=== PATIENT | female | born 1945 | race Caucasian/White ===

== ENCOUNTER → 2019-09-08 16:43 | Outpatient (BNVA) | payer MEDICARE, OTHER, SELFPAY | PROVIDERS: Family Provider Nurse Practitioner Family; PCP Nurse Practitioner Family; Visit Provider Nurse Practitioner | DX: E53.8 Deficiency of other specified B group vitamins (principal); R39.15 Urgency of urination; I10 Essential (primary) hypertension; E78.2 Mixed hyperlipidemia; F41.8 Other specified anxiety disorders; R10.30 Lower abdominal pain, unspecified; E55.9 Vitamin D deficiency, unspecified; J44.9 Chronic obstructive pulmonary disease, unspecified | CPT/HCPCS: 81000 ==

== ENCOUNTER → 2019-09-10 09:36 | Outpatient (BNVA) | payer MEDICARE, OTHER, SELFPAY | PROVIDERS: Family Provider Nurse Practitioner Family; PCP Nurse Practitioner Family; Visit Provider Nurse Practitioner | DX: R05 Cough (principal); J44.9 Chronic obstructive pulmonary disease, unspecified; R10.30 Lower abdominal pain, unspecified; I10 Essential (primary) hypertension; E53.8 Deficiency of other specified B group vitamins; E55.9 Vitamin D deficiency, unspecified; F41.8 Other specified anxiety disorders; E78.2 Mixed hyperlipidemia | CPT/HCPCS: 71046; 74018; 80053; 80061; 82306; 82607; 84443; 85025 ==

== ENCOUNTER → 2019-12-23 10:01 | Outpatient (BNVA) | payer MEDICARE, OTHER, SELFPAY | PROVIDERS: Family Provider Nurse Practitioner Family; PCP Nurse Practitioner Family; Visit Provider Nurse Practitioner | DX: E55.9 Vitamin D deficiency, unspecified (principal); E53.8 Deficiency of other specified B group vitamins; N64.4 Mastodynia; J44.9 Chronic obstructive pulmonary disease, unspecified; I10 Essential (primary) hypertension; F41.8 Other specified anxiety disorders; J30.89 Other allergic rhinitis; Z95.5 Presence of coronary angioplasty implant and graft; E78.2 Mixed hyperlipidemia; N63.10 Unspecified lump in the right breast, unspecified quadrant | CPT/HCPCS: 80048; 81003; 82306; 82607 ==

== ENCOUNTER → 2020-01-08 11:11 | Outpatient (BNVA) | payer MEDICARE, OTHER, SELFPAY | PROVIDERS: Family Provider Nurse Practitioner Family; PCP Nurse Practitioner Family; Visit Provider Nurse Practitioner | DX: N39.0 Urinary tract infection, site not specified (principal); E87.1 Hypo-osmolality and hyponatremia | CPT/HCPCS: 80048; 81000 ==

== ENCOUNTER 2020-01-12 10:10 | Outpatient (CLI) | payer MEDICARE, OTHER, SELFPAY ==
--- NOTE | 2020-01-12 10:30 | MM_ITS ---
WS: [id number] BILATERAL DIGITAL DIAGNOSTIC MAMMOGRAM MAMMOGRAPHY WITH CAD CLINICAL INFORMATION: Right breast lump at 9:00 HISTORY: Bilateral breast soreness COMPARISON: None. TECHNIQUE: Bilateral CC, MLO, and ML views. FINDINGS: Scattered fibroglandular densities bilaterally. Palpable marker upper outer right breast. No underlyi ng mammographic abnormalities. Ultrasound is pending. Punctate calcifications inferior quadrant right breast new from the prior examinations. Recommend spo t magnification views for further anatomic detail. ULTRASOUND BREAST RIGHT TECHNIQUE: Ultrasound right breast focused area of concern. CLINICAL INFORMATION: Right breast lump at 9:00 COMPARISON: None. FINDINGS: Ultrasound right breast at the 8 to 10:00 position. Normal underlying breast parenchyma. No suspiciou s abnormalities. No lesions to target for biopsy. MM/[place] [id number] IMPRESSION: BI-RADS: 0-Incomplete: Need additional imaging evaluation FOLLOW UP: Need Additional Imaging RECOMMEND SPOT MAGNIFICATION VIEWS OF THE CALCIFICATIONS INFERIOR QUADRANT RIGH T BREAST NEAR THE 6 CLOCK POSITION.
--- NOTE | 2020-01-12 11:00 | US_ITS ---
WS: [id number] BILATERAL DIGITAL DIAGNOSTIC MAMMOGRAM MAMMOGRAPHY WITH CAD CLINICAL INFORMATION: Right breast lump at 9:00 HISTORY: Bilateral breast soreness COMPARISON: None. TECHNIQUE: Bilateral CC, MLO, and ML views. FINDINGS: Scattered fibroglandular densities bilaterally. Palpable marker upper outer right breast. No underlyi ng mammographic abnormalities. Ultrasound is pending. Punctate calcifications inferior quadrant right breast new from the prior examinations. Recommend spo t magnification views for further anatomic detail. ULTRASOUND BREAST RIGHT TECHNIQUE: Ultrasound right breast focused area of concern. CLINICAL INFORMATION: Right breast lump at 9:00 COMPARISON: None. FINDINGS: Ultrasound right breast at the 8 to 10:00 position. Normal underlying breast parenchyma. No suspiciou s abnormalities. No lesions to target for biopsy. US/US breast RT limited* [id number] IMPRESSION: BI-RADS: 0-Incomplete: Need additional imaging evaluation FOLLOW UP: Need Additional Imaging RECOMMEND SPOT MAGNIFICATION VIEWS OF THE CALCIFICATIONS INFERIOR QUADRANT RIGH T BREAST NEAR THE 6 CLOCK POSITION.
== END 2020-01-12 10:11 | disposition home or self-care (01) ==
LOC: RADSHAW 10:20
PROVIDERS: PCP Nurse Practitioner; Visit Provider Nurse Practitioner
DX: N63.15 Unspecified lump in the right breast, overlapping quadrants (principal); R92.1 Mammographic calcification found on diagnostic imaging of breast
CPT/HCPCS: 76642; 77066

== ENCOUNTER 2020-01-22 08:43 | Outpatient (CLI) | payer MEDICARE, OTHER, SELFPAY ==
--- NOTE | 2020-01-22 09:00 | MM_ITS ---
WS: [id number] RIGHT DIGITAL MAMMOGRAPHY WITH CAD CLINICAL INFORMATION: abnormal mammo COMPARISON: 01/12/2020 and 08/16/2018 TECHNIQUE: 3 views of the right breast were obtained with spot magnification. FINDINGS: Scattered fibroglandular densities of the right breast. Again seen is a cluster of calcifications inf erior quadrant right breast. These are punctate with a nonspecific and indeterminant appearance. Anibal mmend stereotactic guided biopsy for further evaluation as these are new since the prior examinations . MM/[place] [id number] IMPRESSION: BI-RADS: 4A-Suspicious: Low FOLLOW UP: Stereotactic Biopsy Recommended
== END 2020-01-22 08:44 | disposition home or self-care (01) ==
LOC: RADSHAW 08:48
PROVIDERS: PCP Nurse Practitioner; Visit Provider Nurse Practitioner
DX: R92.8 Other abnormal and inconclusive findings on diagnostic imaging of breast (principal); R92.1 Mammographic calcification found on diagnostic imaging of breast
CPT/HCPCS: 77065

== ENCOUNTER 2020-02-03 11:59 | Outpatient (CLI) | payer MEDICARE, OTHER, SELFPAY ==
--- NOTE | 2020-02-03 12:05 | MM_ITS ---
WS: [id number] STEREOTACTIC RIGHT BREAST BIOPSY WITH VACUUM ASSISTANCE. History: Heterogeneous right breast calcifications. Biopsy recommended for suspicious calcifications. Procedure, risks, and complications were discussed the patient who agreed to proceed. Prior imaging w as reviewed. Cluster of calcifications within the right breast are localized. Stereotactic imaging was performed. Patient was prepped and draped in usual sterile fashion. After 1% lidocaine, calcifications were targ eted stereotactically in the right breast. Small incision was made. Needle advanced into the cluster of calcifications right breast with imaging demonstrating appropriate position relative to the calcif ications. Multiple vacuum-assisted core biopsies were obtained. POSTPROCEDURE IMAGING DEMONSTRATES CA LCIFICATIONS WITHIN THE BIOPSY SPECIMEN. The biopsy cavity was lavaged. Titanium clip was placed at the biopsy site. Postprocedure imaging dem onstrates clip in good position. No immediate complications. MM/MM biopsy RT vac assist [id number] IMPRESSION: 1. Uncomplicated vacuum-assisted stereotactic biopsy of calcifications in the RIGHT breast. PATHOLOGY: BENIGN BREAST TISSUE WITH NO EVIDENCE OF MALIGNANCY. Recommend 6 month right diagnostic mammographic follow-up postbiopsy
--- NOTE | 2020-02-03 12:08 | MM_ITS ---
WS: [id number] STEREOTACTIC RIGHT BREAST BIOPSY WITH VACUUM ASSISTANCE. History: Heterogeneous right breast calcifications. Biopsy recommended for suspicious calcifications. Procedure, risks, and complications were discussed the patient who agreed to proceed. Prior imaging w as reviewed. Cluster of calcifications within the right breast are localized. Stereotactic imaging was performed. Patient was prepped and draped in usual sterile fashion. After 1% lidocaine, calcifications were targ eted stereotactically in the right breast. Small incision was made. Needle advanced into the cluster of calcifications right breast with imaging demonstrating appropriate position relative to the calcif ications. Multiple vacuum-assisted core biopsies were obtained. POSTPROCEDURE IMAGING DEMONSTRATES CA LCIFICATIONS WITHIN THE BIOPSY SPECIMEN. The biopsy cavity was lavaged. Titanium clip was placed at the biopsy site. Postprocedure imaging dem onstrates clip in good position. No immediate complications. MM/MM surgical specimen RT IMPRESSION: 1. Uncomplicated vacuum-assisted stereotactic biopsy of calcifications in the RIGHT breast. PATHOLOGY: BENIGN BREAST TISSUE WITH NO EVIDENCE OF MALIGNANCY. Recommend 6 month right diagnostic mammographic follow-up postbiopsy
--- NOTE | 2020-02-03 12:08 | MM_ITS ---
WS: [id number] STEREOTACTIC RIGHT BREAST BIOPSY WITH VACUUM ASSISTANCE. History: Heterogeneous right breast calcifications. Biopsy recommended for suspicious calcifications. Procedure, risks, and complications were discussed the patient who agreed to proceed. Prior imaging w as reviewed. Cluster of calcifications within the right breast are localized. Stereotactic imaging was performed. Patient was prepped and draped in usual sterile fashion. After 1% lidocaine, calcifications were targ eted stereotactically in the right breast. Small incision was made. Needle advanced into the cluster of calcifications right breast with imaging demonstrating appropriate position relative to the calcif ications. Multiple vacuum-assisted core biopsies were obtained. POSTPROCEDURE IMAGING DEMONSTRATES CA LCIFICATIONS WITHIN THE BIOPSY SPECIMEN. The biopsy cavity was lavaged. Titanium clip was placed at the biopsy site. Postprocedure imaging dem onstrates clip in good position. No immediate complications. MM/[place] [id number] IMPRESSION: 1. Uncomplicated vacuum-assisted stereotactic biopsy of calcifications in the RIGHT breast. PATHOLOGY: BENIGN BREAST TISSUE WITH NO EVIDENCE OF MALIGNANCY. Recommend 6 month right diagnostic mammographic follow-up postbiopsy
== END 2020-02-03 12:00 | disposition home or self-care (01) ==
LOC: RADSHAW 12:03
PROVIDERS: PCP Nurse Practitioner; Visit Provider Nurse Practitioner
DX: R92.1 Mammographic calcification found on diagnostic imaging of breast (principal)
CPT/HCPCS: 19081; 77065; 85610; 88305

== ENCOUNTER → 2020-03-24 10:00 | Outpatient (BNVA) | payer MEDICARE, OTHER, SELFPAY | PROVIDERS: PCP Nurse Practitioner; Visit Provider Nurse Practitioner | DX: I12.9 Hypertensive chronic kidney disease with stage 1 through stage 4 chronic kidney disease, or unspecified chronic kidney disease (principal); N18.3 Chronic kidney disease, stage 3 (moderate); E55.9 Vitamin D deficiency, unspecified; J44.9 Chronic obstructive pulmonary disease, unspecified; F41.8 Other specified anxiety disorders; E78.2 Mixed hyperlipidemia; E53.8 Deficiency of other specified B group vitamins; J30.89 Other allergic rhinitis; Z95.5 Presence of coronary angioplasty implant and graft | CPT/HCPCS: 80053; 81000; 82306; 84443 ==

== ENCOUNTER → 2020-04-07 11:03 | Outpatient (BNVA) | payer MEDICARE, OTHER, SELFPAY | PROVIDERS: PCP Nurse Practitioner; Visit Provider Nurse Practitioner | DX: N39.0 Urinary tract infection, site not specified (principal) | CPT/HCPCS: 81000 ==

== ENCOUNTER → 2020-04-22 13:16 | Outpatient (BNVA) | payer MEDICARE, OTHER, SELFPAY | PROVIDERS: PCP Nurse Practitioner; Visit Provider Nurse Practitioner | DX: N18.9 Chronic kidney disease, unspecified (principal); I10 Essential (primary) hypertension | CPT/HCPCS: 81000 ==

== ENCOUNTER → 2020-05-06 14:17 | Outpatient (BNVA) | payer MEDICARE, OTHER, SELFPAY | PROVIDERS: PCP Nurse Practitioner; Visit Provider Nurse Practitioner | DX: I10 Essential (primary) hypertension (principal) | CPT/HCPCS: 80048 ==

== ENCOUNTER → 2020-08-27 11:37 | Outpatient (BNVA) | payer MEDICARE, OTHER, SELFPAY | PROVIDERS: PCP Nurse Practitioner; Visit Provider Nurse Practitioner Family | DX: M17.11 Unilateral primary osteoarthritis, right knee (principal); M25.561 Pain in right knee; M25.461 Effusion, right knee | CPT/HCPCS: 73562 ==

== ENCOUNTER → 2020-09-08 09:58 | Outpatient (BNVA) | payer MEDICARE, OTHER, SELFPAY | PROVIDERS: PCP Nurse Practitioner; Visit Provider Nurse Practitioner | DX: E55.9 Vitamin D deficiency, unspecified (principal); I10 Essential (primary) hypertension; E78.2 Mixed hyperlipidemia; E53.8 Deficiency of other specified B group vitamins | CPT/HCPCS: 80053; 80061; 82306; 84443; 85025 ==

== ENCOUNTER → 2020-12-06 10:18 | Outpatient (BNVA) | payer MEDICARE, OTHER, SELFPAY | PROVIDERS: PCP Nurse Practitioner; Visit Provider Nurse Practitioner | DX: I10 Essential (primary) hypertension (principal); J44.9 Chronic obstructive pulmonary disease, unspecified; F41.8 Other specified anxiety disorders; J30.89 Other allergic rhinitis; I25.10 Atherosclerotic heart disease of native coronary artery without angina pectoris; M17.10 Unilateral primary osteoarthritis, unspecified knee; E78.2 Mixed hyperlipidemia; R11.0 Nausea; N18.9 Chronic kidney disease, unspecified; L57.8 Other skin changes due to chronic exposure to nonionizing radiation; Z79.899 Other long term (current) drug therapy | CPT/HCPCS: 74018; 80053; 81003; 87077; 87086; 87184 ==

== ENCOUNTER → 2021-03-07 10:08 | Outpatient (BNVA) | payer MEDICARE, OTHER, SELFPAY | PROVIDERS: PCP Nurse Practitioner; Visit Provider Nurse Practitioner | DX: I10 Essential (primary) hypertension (principal); R82.90 Unspecified abnormal findings in urine; F41.8 Other specified anxiety disorders; J30.89 Other allergic rhinitis; I25.10 Atherosclerotic heart disease of native coronary artery without angina pectoris; M17.10 Unilateral primary osteoarthritis, unspecified knee; E78.2 Mixed hyperlipidemia; J44.9 Chronic obstructive pulmonary disease, unspecified | CPT/HCPCS: 71046; 80053; 81000; 85025; 87077; 87086; 87184 ==

== ENCOUNTER 2021-04-06 16:50 | Emergency (ER) | payer MEDICARE, OTHER, SELFPAY ==
--- NOTE | 2021-04-06 16:59 | XRR_ITS ---
PROCEDURE INFORMATION: Exam: XR Chest Exam date and time: 04/06/2021 4:59 PM Age: 76 years old Clinical indication: Sternal or substernal pain; Prior surgery; Surgery type: Left lumpectomy; Additional info: Chest pain TECHNIQUE: Imaging protocol: XR of the chest. Views: 1 view. COMPARISON: CR XR chest 2V* [id number] 03/07/2021 10:07 AM FINDINGS: Lungs: Unremarkable. No consolidation. Pleural spaces: Unremarkable. No pleural effusion. No pneumothorax. Heart/Mediastinum: Unremarkable. No cardiomegaly. Bones/joints: Unremarkable. XR/XR chest 1V portable [id number] IMPRESSION: Negative for infiltrate Radiation Dose CTDIVOL = (mGy): DLP = (mGy-cm)
[2021-04-06 17:08] VITALS: BP 153/62; PULSE 96; RESP 20; TEMP 36.7; O2SAT 99; BMI 24.0
--- NOTE | 2021-04-06 18:07 | ECG_ITS ---
[facility] Test Date: 2021-04-06 Pat Name: Zoila Rosario Department: Room: Gender: Female Physiotherapy Aide: : 1945 Requested By: Dieter Brewster Order Number: [id number] Wesley MD: Galilea Garcia M.D. Measurements Intervals [place] Rate: 77 P: 71 ND: 168 QRS: -27 QRSD: 88 T: 69 QT: 398 QTc: 450 Interpretive Statements SINUS RHYTHM POSSIBLE LEFT ATRIAL ENLARGEMENT [-0.1mV P-WAVE IN V1/V2] SEPTAL MYOCARDIAL INFARCTION , OF INDETERMINATE AGE [40+ ms Q WAVE IN V1/V2] Compared to ECG 07/23/2018 18:11:07 Sinus tachycardia no longer present Left-axis deviation no longer present Myocardial infarct finding still present Electronically Signed On 04-08-2021 5:47:51 CDT by Galilea Garcia M.D. [id number]
--- NOTE | 2021-04-06 18:08 | ED_ITS ---
HPI - Chest Pain General: Chief Complaint: Chest Pain Stated Complaint: chest pains Time Seen by Provider: 04/06/21 18:01 History of Present Illness: HPI narrative: This patient is a 76-year-old female who presents to the emergency department with complaint of hypertension and atypical type right chest pain. Patient states the pain is resolved. Patient does have a history of hypertension and states her blood pressure normally runs around 130 systolic. Blood pressure on arrival was 155/98. Will do medical evaluation treat as needed MD complaint: chest discomfort Onset (ago): hour(s) Timing of current episode: episodic Associated symptoms: Deny abdominal pain, dyspnea, fever(s), nausea, palpitations or vomiting Review of Systems General: Reports: 10 or more systems reviewed and unremarkable except in HPI and below Const: Denies: fever(s), chills, body aches or fatigue Eyes: Denies: change in vision or blurry vision ENMT: Denies: throat pain, hoarseness or mouth pain Card: Reports: chest pain; Denies: palpitations, irregular heart rhythm, edema, swelling of feet/ankles or lightheadedness Resp: Denies: dyspnea, productive cough, non-productive cough, wheezing or pain on inspiration GI: Denies: abdominal pain, nausea or vomiting : Denies: flank pain, difficulty voiding, dysuria, urinary frequency, urinary urgency or urinary hesitancy Musc: Denies: neck pain, back pain, extremity pain, extremity swelling, joint pain, joint swelling, joint redness, joint warmth or limited range of motion Skin/Breast: Denies: rash, pruritus, erythema or skin tenderness Neuro: Denies: headache(s), numbness in extremities or weakness in extremities Psych: Denies: anxiety or depression PFSH ED PFSH: Medical History Anxiety with depression 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 Chronic migraine CKD (chronic kidney disease) COPD (chronic obstructive pulmonary disease) Environmental and seasonal allergies Essential hypertension Fibromyalgia Mixed hyperlipidemia Osteoarthritis, generalized Personal history of smoking Vitamin B 12 deficiency Vitamin D deficiency Surgical History History of heart artery stent History of nephrectomy, left 2010 at [facility] Family History Other Cancer Heart disease Denies family history of Diabetes Social History Second hand smoke exposure: Yes Smoking risk assessment/counseling performed?: Yes Alcohol intake: never Desire information about alcohol rehabilitation?: No Counseling given: No Desire information about substance/drug rehabilitation?: No Counseling given: No Adopted: No Caregiver/support person: No Lives independently: Yes Household members: spouse Housing: House Marital status: Number of children: 3 service: No Current occupational status: retired and disabled Current occupational exposures/hazards: No Pets and animals: Yes History of recent travel: No Current gender identity: Female Physical Exam Const: COMMON NORMALS: no acute distress, average body habitus, patient oriented x3, no limitations, healthy appearing, alert and well nourished HENMT: COMMON NORMALS: normocephalic, atraumatic, hearing grossly normal bilaterally, external ears normal, EAC's normal, TM's normal bilaterally, Normal external nose present, Normal nasal mucous membranes and turbinates present, moist oral mucous membranes, oropharynx normal, dentition normal and gingiva normal HEAD & SCALP: normocephalic and atraumatic NOSE: Normal external nose present and Normal nasal mucous membranes and turbinates present EXTERNAL EAR: Yes external ears normal EXTERNAL AUDITORY CANAL: EAC's normal TYMPANIC MEMBRANE: TM's normal bilaterally Neck/C-Spine: COMMON NORMALS: full ROM, no lymphadenopathy, supple, no meningeal signs, no JVD, Thyroid normal and No carotid bruits THYROID: Thyroid normal Chest: COMMONS NORMALS: normal inspection of the chest, normal palpation of entire chest wall, normal inspection of the breasts and normal palpation of the breasts Breast/axilla inspection: Yes normal inspection of the breasts BREAST/AXILLA PALPATION: Yes normal palpation of the breasts Resp: COMMON NORMALS: normal respiratory effort, No retractions, No use of accessory muscles, clear to auscultation bilaterally and percussion normal AUSCULTATION: clear to auscultation bilaterally PERCUSSION: percussion normal Cardio: COMMON NORMALS: no JVD, regular rate, regular rhythm, S1 normal heart sound present, S2 normal heart sound present, No gallops present (Cardio), No clicks present (Cardio), No murmurs present (Cardio), No rub (Cardio) and Peripheral pulses 2+ throughout RATE: regular rate RHYTHM: regular rhythm HEART SOUNDS: S1 normal heart sound present and S2 normal heart sound present PERIPHERAL PULSES: Peripheral pulses 2+ throughout GI: COMMON NORMALS: Normal to inspection, nondistended, normoactive bowel sounds present, Soft to palpation, non-tender, No hepatosplenomegaly present, no masses and no bruits PALPATION: Yes Soft to palpation and Yes No hepatosplenomegaly present Back/Pelvis: COMMON NORMALS: thoracic and lumbar spine normal to inspection, no thoracic nor lumbar tenderness, thoraco-lumbar ROM normal and straight leg raise negative bilaterally Extremity: COMMON NORMALS: normal to inspection, full ROM, capillary refill normal, no joint enlargement, no clubbing, cyanosis or edema, no calf tenderness and no pedal edema Neuro: COMMON NORMALS: patient oriented x3 SENSORIUM/ORIENTATION: Yes alert MENINGEAL SIGNS: Yes no meningeal signs Course Reevaluation(s): Reevaluation #1: This patient is a 76-year-old female who presents to the emergency department with complaint of hypertension and atypical type right chest pain. Patient states the pain is resolved. Patient does have a history of hypertension and states her blood pressure normally runs around 130 systolic. Blood pressure on arrival was 155/98. Will do medical evaluation treat as needed I was discussing with patient and family initially they had agreed to be admitted to the hospital due to the patient's atypical chest pain and hyponatremia. As I was talking with the hospitalist Dr. Urbina for admission for the acute hyponatremia. Patient and family requested come back to the room. They are refusing admission to the hospital and request to be discharged home. I did discuss at length with him about options. And advised he would be best have this monitored in the hospital but they have declined. They state they will follow up with primary care physician. Patient and family will be discharged home per the request. Time: 20:41 Consultations: Consultation #1: Dr urbina Time: 20:42 Vital Signs: Vital signs: Vital Signs Temperature 98.1 F 04/06/21 20:05 Pulse Rate 72 04/06/21 20:27 Respiratory Rate 18 04/06/21 20:05 Blood Pressure 163/70 04/06/21 20:27 Pulse Oximetry 100 04/06/21 20:05 MDM - Chest Pain MDM Narrative: Medical decision making narrative: This patient is a 76-year-old female who presents to the emergency department with complaint of hypertension and atypical type right chest pain. Patient states the pain is resolved. Patient does have a history of hypertension and states her blood pressure normally runs around 130 systolic. Blood pressure on arrival was 155/98. Will do medical evaluation treat as needed I was discussing with patient and family initially they had agreed to be admitted to the hospital due to the patient's atypical chest pain and hyponatremia. As I was talking with the hospitalist Dr. Urbina for admission for the acute hyponatremia. Patient and family requested come back to the room. They are refusing admission to the hospital and request to be discharged home. I did discuss at length with him about options. And advised he would be best have this monitored in the hospital but they have declined. They state they will follow up with primary care physician. Patient and family will be discharged home per the request. Lab Data: Labs: Lab Results 04/06/21 04/06/21 04/06/21 17:48 18:00 18:00 WBC 10.0 10^3/uL 10^3 /uL (4.0-10.0) RBC 4.33 10^6/uL 10^6 /uL (4.1-5.3) Hgb 13.1 g/dL g/dL (11.5-15.3) Hct 37.2 % % (37.0-47.0) MCV 85.9 fl fl (81-99) MCH 30.3 pg pg (28.0-34.0) MCHC 35.2 g/dL g/dL (30.0-36.0) RDW 13.8 % % (12.1-15.1) Plt Count 315 10^3/cmm 10^3 /cmm (130-400) MPV 8.9 fL fL (7.4-10.4) Neut % (Auto) 62.8 % % Lymph % (Auto) 27.1 % % Cochran % (Auto) 6.7 % % Eos % (Auto) 2.6 % % Baso % (Auto) 0.4 % % Neut # (Auto) 6.31 10^3/uL 10^3 /uL (1.8-7.7) Lymph # (Auto) 2.7 10^3/uL 10^3/ uL (0.8-4.8) Cochran # (Auto) 0.7 10^3/uL 10^3/ uL (0.2-0.9) Eos # (Auto) 0.3 10^3/uL 10^3/ uL (0.0-0.8) Baso # (Auto) 0.0 10^3/uL 10^3/ uL (0.0-0.1) Nucleated RBC % (a uto) 0 % % Nucleated RBCs # 0.0 /100WBC /100W BC PT INR APTT Sodium 121 mmol/L L mmol /L (136-145) Potassium 4.8 mmol/L mmol/L (3.5-5.1) Chloride 87 mmol/L L mmol/ L (98-107) Carbon Dioxide 22 mmol/L mmol/L (22-29) Anion Gap 16.8 (5-19) BUN 11 mg/dL mg/dL (8-23) Creatinine 0.9 mg/dL mg/dL (0.5-0.9) GFR Calculation Not Reportable Glucose 82 mg/dL mg/dL (65-115) Calculated Osmolal ity 250 mOsm/kg L mOs m/kg (285-295) Calcium 9.7 mg/dL mg/dL (8.5-10.5) Total Bilirubin 0.2 mg/dL mg/dL (0.15-1.2) AST 19 U/L U/L (0-32) ALT 11 U/L U/L (0-33) Alkaline Phosphata se 108 IU/L H IU/L (35-105) Troponin T Baselin e NT-Pro-B Natriuret Pep 393 pg/mL pg/mL (0-450) Total Protein 6.6 g/dL g/dL (6.6-8.7) Albumin 4.5 g/dL g/dL (3.5-5.2) Globulin 2.1 g/dL g/dL (1.3-4.6) Urine Color Yellow (Yellow) Urine Appearance Clear (CLEAR) Urine pH 7 (5-7) Ur Specific Gravit y 1.010 (1.005-1.030) Urine Protein Neg (Negative) Urine Glucose (UA) Norm (Normal) Urine Ketones Negative (Negative) Urine Blood Neg (Negative) Urine Nitrate Negative (Negative) Urine Bilirubin Neg (Negative) Urine Urobilinogen Norm mg/dL mg/dL (Negative) Ur Leukocyte Jessica ase Negative (Negative) 04/06/21 04/06/21 18:00 18:00 WBC RBC Hgb Hct MCV MCH MCHC RDW Plt Count MPV Neut % (Auto) Lymph % (Auto) Cochran % (Auto) Eos % (Auto) Baso % (Auto) Neut # (Auto) Lymph # (Auto) Cochran # (Auto) Eos # (Auto) Baso # (Auto) Nucleated RBC % (a uto) Nucleated RBCs # PT 13.40 SECONDS SEC ONDS (12.1-14.9) INR 0.99 (0.8-1.2) APTT 33.5 SECONDS SECO NDS (23.9-36.7) Sodium Potassium Chloride Carbon Dioxide Anion Gap BUN Creatinine GFR Calculation Glucose Calculated Osmolal ity Calcium Total Bilirubin AST ALT Alkaline Phosphata se Troponin T Baselin e 13 ng/L H ng/L (0-10) NT-Pro-B Natriuret Pep Total Protein Albumin Globulin Urine Color Urine Appearance Urine pH Ur Specific Gravit y Urine Protein Urine Glucose (UA) Urine Ketones Urine Blood Urine Nitrate Urine Bilirubin Urine Urobilinogen Ur Leukocyte Jessica ase Imaging Data^: CXR: Attestation: I personally reviewed and interpreted this imaging study as follows: Radiologist's impression: IMPRESSION: Negative for infiltrate EKG Data^: EKG 1: Attestation: I personally reviewed and interpreted this EKG as follows: EKG interpretation date: 04/06/21 EKG interpretation time: 18:19 Prior EKG tracings: available for review Interpretation: Sinus rhythm heart rate 77 nonspecific EKG changes EKG 2: Attestation: I personally reviewed and interpreted this EKG as follows: EKG interpretation date: 04/06/21 EKG interpretation time: 19:11 Prior EKG tracings: available for review Interpretation: Patient is EKG is sinus rhythm with a heart rate 74 nonspecific EKG changes Discharge Plan Discharge Patient Disposition: Home Clinical Impression: Acute hyponatremia, Hypertension Condition: Stable Prescriptions: No Action cholecalciferol (vitamin D3) 25 mcg (1,000 unit) capsule 50 mcg PO DAILY RF: 0 Hold Instructions: Patient No Longer Taking aspirin [Adult Aspirin Regimen] 81 mg tablet,delayed release (DR/EC) 81 mg PO DAILY RF: 0 mupirocin 2 % ointment 1 applic TOPICAL TID PRN (Reason: skin irritation) Qty: 30 RF: 2 nitroglycerin [Nitrostat] 0.4 mg tablet, sublingual 0.4 mg SUBLINGUAL Q5M PRN (Reason: chest pain) Qty: 25 RF: 2 losartan 100 mg tablet 100 mg PO DAILY Qty: 90 RF: 3 ondansetron HCl [Zofran] 4 mg tablet 4 mg PO BID PRN (Reason: nausea) Qty: 20 RF: 2 triamcinolone acetonide 0.1 % cream 1 applic topical BID PRN (Reason: itching) Qty: 80 RF: 0 cetirizine [Zyrtec] 10 mg tablet 10 mg PO DAILY Qty: 30 RF: 2 chlorthalidone 25 mg tablet 25 mg PO DAILY Qty: 30 RF: 2 Hold Instructions: Doctor's Order clopidogrel 75 mg tablet 75 mg PO DAILY Qty: 30 RF: 2 meloxicam [Mobic] 7.5 mg tablet 7.5 mg PO .with even meal Qty: 30 RF: 2 metoprolol tartrate 25 mg tablet 12.5 mg PO BID Qty: 30 RF: 2 simvastatin 20 mg tablet 20 mg PO DAILY Qty: 30 RF: 2 venlafaxine [Effexor XR] 150 mg capsule,extended release 24hr 150 mg PO .HS Qty: 30 RF: 2 Trelegy Ellipta 100-62.5-25 mcg blister with device 1 inh inhalation Q24H Qty: 60 RF: 2 hydroxyzine pamoate 50 mg capsule 50 mg PO BID Qty: 60 RF: 2 benzonatate 200 mg capsule 200 mg PO TID PRN (Reason: cough) Qty: 90 RF: 0 nystatin 100,000 unit/mL suspension 5 ml PO TID 10 Days Qty: 150 RF: 0 promethazine-DM 6.25-15 mg/5 mL syrup 5 ml PO Q6H PRN (Reason: drainage ) Qty: 118 RF: 0 selenium sulfide 2.25 % shampoo 5 ml topical DAILY PRN (Reason: scalp ) Qty: 180 RF: 0 sulfamethoxazole-trimethoprim [Bactrim DS] 800-160 mg tablet 1 tab PO Q12H Qty: 20 RF: 0 Discharge Orders: Discharge ED (Routine); Ordered 04/06/21 Ordered By: Dieter Brewster Referrals: Kevyn Jean, [employer] [Primary Care Provider] - Discharge Diet: Advance as tolerated Discharge Activity: Resume usual activity Patient Instructions: Opioid Safety Activity Restrictions/Additional Instructions: Continue all home medications. Understand you are being discharged home per your request. Follow-up with your primary care physician in 2 to 3 days for repeat laboratory values check for hyponatremia. Return to the emergency department as needed. Coding Level of Care Code ED Director [employer] for [employer] Fwd Exam Comprehensive
[2021-04-06 18:24] LABS: Basophils % 0.4 %; Eosinophils # 0.3 10^3/uL (0.0-0.8); Eosinophils % 2.6 %; Hematocrit 37.2 % (37.0-47.0); Hemoglobin 13.1 g/dL (11.5-15.3); Lymphocytes # 2.7 10^3/uL (0.8-4.8); Lymphocytes % 27.1 %; Mean Corpuscular HGB Conc 35.2 g/dL (30.0-36.0); Mean Corpuscular Hemoglobin 30.3 pg (28.0-34.0); Mean Corpuscular Volume 85.9 fl (81-99); Mean Platelet Volume 8.9 fL (7.4-10.4); Monocytes # 0.7 10^3/uL (0.2-0.9); Monocytes % 6.7 %; Neutrophils # 6.31 10^3/uL (1.8-7.7); Neutrophils % 62.8 %; Nucleated Red Blood Cells % 0 %; Platelet Count 315 10^3/cmm (130-400); Red Blood Count 4.33 10^6/uL (4.1-5.3); Red Cell Distribution Width 13.8 % (12.1-15.1)
[2021-04-06] MEDS: ondansetron 2 mg/ML SDV 2 mL 4 MG IVP (18:28)
[2021-04-06 18:32] VITALS: BP 151/104; PULSE 73; RESP 18; O2SAT 97
[2021-04-06 18:37] LABS: INR 0.99 (0.8-1.2)
[2021-04-06 18:38] LABS: Partial Thromboplastin Time 33.5 SECONDS (23.9-36.7)
[2021-04-06 18:45] LABS: Add Urine Microscopic? NO; Charge for UA Resulting for Rev
[2021-04-06 18:51] LABS: Bilirubin Urine Neg (Negative); Blood Urine Neg (Negative); Glucose Urine UA Norm (Normal); Ketones Urine Negative (Negative); Leukocyte Esterase Urine Negative (Negative); Nitrate Urine Negative (Negative); Protein Urine Neg (Negative); Urine Appearance Clear (CLEAR); Urine Color Yellow (Yellow); Urobilinogen Urine Norm (Negative); pH Urine 7 (5-7)
[2021-04-06 18:56] LABS: Troponin(5th) Baseline 13 ng/L (0-10)
--- NOTE | 2021-04-06 18:59 | ECG_ITS ---
[facility] Test Date: 2021-04-06 Pat Name: Zoila Rosario Department: Room: Gender: Female Group Account Director: : 1945 Requested By: Jennifer Espino Order Number: [id number] Wesley MD: Yeimi Alvarado M.D. Measurements Intervals [place] Rate: 74 P: -12 OK: 166 QRS: 90 QRSD: 94 T: -5 QT: 408 QTc: 454 Interpretive Statements SINUS RHYTHM POSSIBLE LEFT ATRIAL ENLARGEMENT [-0.1mV P-WAVE IN V1/V2] SEPTAL MYOCARDIAL INFARCTION , OF INDETERMINATE AGE [40+ ms Q WAVE IN V1/V2] Compared to ECG 07/23/2018 18:11:07 Sinus tachycardia no longer present Left-axis deviation no longer present Myocardial infarct finding still present Electronically Signed On 04-06-2021 20:15:57 CDT by Yeimi Alvarado M.D. [id number]
[2021-04-06 19:06] LABS: Alanine Aminotransferase 11 U/L (0-33); Albumin Level 4.5 g/dL (3.5-5.2); Alkaline Phosphatase 108 IU/L (35-105); Anion Gap 16.8 (5-19); Aspartate Amino Transferase 19 U/L (0-32); Blood Urea Nitrogen 11 mg/dL (8-23); Calcium 9.7 mg/dL (8.5-10.5); Carbon Dioxide 22 mmol/L (22-29); Chloride 87 mmol/L (98-107); Globulin 2.1 g/dL (1.3-4.6); Glucose 82 mg/dL (65-115); NT Pro B Type Natriuretic Pept 393 pg/mL (0-450); Osmolality Calculated 250 mOsm/kg (285-295); Potassium 4.8 mmol/L (3.5-5.1); Sodium 121 mmol/L (136-145); Total Bilirubin 0.2 mg/dL (0.15-1.2); Total Protein 6.6 g/dL (6.6-8.7)
[2021-04-06 19:16] VITALS: BP 158/60; PULSE 74; RESP 18; O2SAT 98
[2021-04-06 20:05] VITALS: BP 164/88; PULSE 80; RESP 18; TEMP 36.7; O2SAT 100
[2021-04-06] MEDS: metoprolol tartrate 1 mg/1 mL SDV 5 mL 5 MG IV (20:16)
[2021-04-06 20:27] VITALS: BP 163/70; PULSE 72
[2021-04-06 20:30] LABS: Troponin 5 2HR 12.65 ng/L (0-10)
[2021-04-06 20:44] LABS: Troponin 5 2HR Delta -0.35 ABS# (0-10)
[2021-04-06 20:47] VITALS: BP 160/69; PULSE 68; RESP 18; TEMP 36.7; O2SAT 96
== END 2021-04-06 21:01 | disposition home or self-care (01) ==
PROVIDERS: Physician Assistant; Emergency Provider Emergency Medicine; PCP Nurse Practitioner
DX: E87.1 Hypo-osmolality and hyponatremia (principal); I10 Essential (primary) hypertension; Z79.82 Long term (current) use of aspirin; Z79.02 Long term (current) use of antithrombotics/antiplatelets; J44.9 Chronic obstructive pulmonary disease, unspecified; E78.2 Mixed hyperlipidemia; Z77.22 Contact with and (suspected) exposure to environmental tobacco smoke (acute) (chronic)
CPT/HCPCS: 36415; 71045; 80053; 81003; 83880; 84484; 85025; 85610; 85730; 93005; 96374; 96375; 99284; J2405; J3490

== ENCOUNTER → 2021-04-08 13:40 | Outpatient (BNVA) | payer MEDICARE, OTHER, SELFPAY | PROVIDERS: PCP Nurse Practitioner; Visit Provider Registered Nurse Neonatal Intensive Care | DX: E87.1 Hypo-osmolality and hyponatremia (principal) | CPT/HCPCS: 80053 ==

== ENCOUNTER → 2021-04-11 11:51 | Outpatient (BNVA) | payer MEDICARE, OTHER, SELFPAY | PROVIDERS: PCP Nurse Practitioner; Visit Provider Nurse Practitioner | DX: E87.1 Hypo-osmolality and hyponatremia (principal) | CPT/HCPCS: 80048 ==

== ENCOUNTER → 2021-04-25 10:59 | Outpatient (BNVA) | payer MEDICARE, OTHER, SELFPAY | PROVIDERS: PCP Nurse Practitioner; Visit Provider Nurse Practitioner | DX: E87.1 Hypo-osmolality and hyponatremia (principal); E55.9 Vitamin D deficiency, unspecified | CPT/HCPCS: 80053; 82306 ==

== ENCOUNTER → 2021-06-10 09:14 | Outpatient (BNVA) | payer MEDICARE, OTHER, SELFPAY | PROVIDERS: PCP Nurse Practitioner; Visit Provider Nurse Practitioner | DX: I10 Essential (primary) hypertension (principal) | CPT/HCPCS: 80048; 81000 ==

== ENCOUNTER 2021-08-02 09:19 | Inpatient (IN) | payer MEDICARE, OTHER, SELFPAY ==
[2021-08-02 09:22] VITALS: BP 102/67; PULSE 80; RESP 16; TEMP 36.7; O2SAT 92; BMI 21.4
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
--- NOTE | 2021-08-02 09:37 | XR_ITS ---
WS: [id number] PORTABLE CHEST HISTORY: dyspnea/cough COMPARISON: 04/06/2021 New opacification in the LEFT lower lung field. Infiltrate obscures the LEFT heart border. Probably l ingular pneumonia. The RIGHT lung is clear. No pleural effusion or pneumothorax. Cardiac size: Normal. Mediastinum/Aorta: Normal mediastinum. Mild thoracolumbar scoliosis. XR/XR chest 1V portable [id number] IMPRESSION: Acute lingular pneumonia.
--- NOTE | 2021-08-02 09:37 | ECG_ITS ---
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 Measurements Intervals [place] Rate: 76 P: 71 [place]: 156 QRS: -32 QRSD: 83 T: 79 QT: 428 QTc: 483 Interpretive Statements SINUS RHYTHM POSSIBLE LEFT ATRIAL ENLARGEMENT [-0.1mV P-WAVE IN V1/V2] LEFT AXIS DEVIATION [QRS AXIS < -30] ANTEROSEPTAL MYOCARDIAL INFARCTION , OF INDETERMINATE AGE [40+ ms Q WAVE IN V1-V4] Compared to ECG 04/06/2021 19:11:40 Left-axis deviation now present Myocardial infarct finding still present Electronically Signed On 08-02-2021 17:10:17 RESIDENTIAL SALES REP by Avery Lozano M.D. [id number]
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
[2021-08-02 09:42] LABS: Basophils # 0.1 10^3/uL (0.0-0.1); Basophils % 0.3 %; Eosinophils # 0.1 10^3/uL (0.0-0.8); Eosinophils % 0.3 %; Hematocrit 32.1 % (37.0-47.0); Hemoglobin 10.3 g/dL (11.5-15.3); Lymphocytes # 1.3 10^3/uL (0.8-4.8); Lymphocytes % 8.7 %; Mean Corpuscular HGB Conc 32.1 g/dL (30.0-36.0); Mean Corpuscular Hemoglobin 27.8 pg (28.0-34.0); Mean Corpuscular Volume 86.5 fl (81-99); Mean Platelet Volume 9.2 fL (7.4-10.4); Monocytes # 0.7 10^3/uL (0.2-0.9); Monocytes % 4.8 %; Neutrophils # 12.17 10^3/uL (1.8-7.7); Neutrophils % 84.6 %; Nucleated Red Blood Cells % 0 %; Platelet Count 520 10^3/cmm (130-400); Red Blood Count 3.71 10^6/uL (4.1-5.3); Red Cell Distribution Width 14.3 % (12.1-15.1); White Blood Count 14.4 10^3/uL (4.0-10.0)
--- NOTE | 2021-08-02 09:44 | PC.NURSE ---
Admits to being Bi-polar.
[2021-08-02 10:09] LABS: Alanine Aminotransferase 10 U/L (0-33); Albumin Level 3.5 g/dL (3.5-5.2); Alkaline Phosphatase 66 IU/L (35-105); Anion Gap 14.3 (5-19); Aspartate Amino Transferase 15 U/L (0-32); Blood Urea Nitrogen 10 mg/dL (8-23); Carbon Dioxide 27 mmol/L (22-29); Chloride 98 mmol/L (98-107); Creatine Phosphokinase 249 U/L (26-192); Globulin 2.6 g/dL (1.3-4.6); Glucose 120 mg/dL (65-115); Osmolality Calculated 282 mOsm/kg (285-295); Potassium 3.3 mmol/L (3.5-5.1); Salicylate 0.6 mg/dL (3-10); Sodium 136 mmol/L (136-145); Total Bilirubin 0.2 mg/dL (0.15-1.2); Total Protein 6.1 g/dL (6.6-8.7)
[2021-08-02 10:11] LABS: Acetaminophen < 5.0 ug/mL (10-30); Alcohol Level < 10 mg/dL (0-10)
[2021-08-02 10:46] LABS: Add Urine Microscopic? YES; Bacteria Urine 1+ /hpf; Bilirubin Urine Neg (Negative); Blood Urine Neg (Negative); Glucose Urine UA Norm (Normal); Ketones Urine Negative (Negative); Leukocyte Esterase Urine 1+ (Negative); Nitrate Urine Negative (Negative); Protein Urine Neg (Negative); Squamous Epithelial Cell Urine 25-40 /hpf (0-5); Urine Appearance Cloudy (CLEAR); Urine Color Yellow (Yellow); Urobilinogen Urine Norm (Negative); WBC Urine 25-40 /hpf (0-5); pH Urine 6.5 (5-7)
[2021-08-02 10:57] LABS: Amphetamines Screen Urine Negative (Negative); Barbiturates Screen Urine Negative (Negative); Benzodiazepines Screen Urine Negative (Negative); Cocaine Screen Urine Negative (Negative); Opiate Screen Urine Negative (Negative); PCP Screen Urine Negative (Negative); THC Screen Urine Negative (Negative)
--- NOTE | 2021-08-02 12:55 | PC.PHAR ---
pt unable to verify medications-medications entered are meds that show has been filled recently on ext med history and what was on previous entered med list
--- NOTE | 2021-08-02 13:11 | PM.HP ---
Providers/Chief Complaint Admitting Physician: Yulia Miner MD Primary Care Provider: Kevyn Jean, SKEINER-C Chief Complaint: WEAKNESS History of Present Illness Zoila Rosario is a 76 year old female who presented to the hospital via EMS today due to weakness and general malaise. She lives with her of 38 years. History is obtained from her. Since early April she dates that she has had to care for her more than in the past. He fell and broke his upper arm and underwent surgery in May. Since then she states that he spends most of his time in the bed or the chair and has not been helping out with anything around the house orthe property. She has become worn out and not able to attend to everything. She describes being significantly weaker than usual and having more difficulty breathing over the past week or so. She has a barn cat named Isabell, a tomcat named Maulik and a Guinea named Oskar whom she usually cares for but the last few days she has not been able to do that. She is very worried about her animals. Some of this has been hindered by the weather but even with the snow and ice melting she has still struggled. She feels feverish often, particularly at night. She has had increasing cough that was initially productive of clear sputum that later turned to yellow and green. Rare specks of blood. She has had increased sputum production lately. She gets short of breath walking shorter distances with wheezing noted. She has had dry mouth, matted eyes, runny nose. Denies sore throat but describes having some patches of mucus in her throat. She feels more tired than usual and indicates that she gets very sleepy after taking her medications. From what I can gather, her wanted her to do something for him today and she just had had it. She called for an ambulance to come and get her because of the symptoms that she has been experiencing so she can not only get help for herself but also with the intent of not having to take care of him today because she simply could not do it. She has known COPD and continues to smoke 1-1-1/2 packs a day. She has had COVID vaccination with [employer]. No known contacts with Covid. She is not normally on oxygen. Additional history was obtained by ER staff from patient's stepdaughter as described in nursing notes: 08/02/21 09:37 - Nurse Note by Johnathan Gomes RN Acct Num: [id number]? : 1945? Patient Age: 76 Spoke with Lyla Fernandez, pt's step daughter.? She states that patient has a hx of manic depression/bipolar disorder and they feel she has had worsening dementia as of late.? Lyla states patient has threatened to kill herself and threatened to kill her on multiple occasions.? Lyla states pt's son is on the way to the ER to fill out an affidavit detailing the SI/HI comments.? Lyla states pt lives in her room and will not let anyone access this room but Lyla stated there are literally buckets full of medications in the room and pt will lock herself in the room.? In June police had to be called for a wellness check; pt had locked herself in room and was in there for so long that family was worried about her.? Lyla states patient drinks alcohol everyday, sometimes excessively.? She states patient yesterday accused her of starving her to despite patient having eaten recently but denied having eaten anything.? Pt's , per Lyla, had surgery on a fractured left arm 12 weeks ago and is still recovering from this.? Lyla denies any neglect or abuse by any family member, especially the .? Lyla Fernandez can be reached at [phone]. Initialized on 08/02/21 09:37 - END OF NOTE In talking with Mrs. Washburn, she. On her own without any focused questioning that she has a history of bipolar disorder. She indicates that her 's children have been telling people lies about her alluding that she is crazy. I asked her specifically about wanting to harm herself or others. She stated that she want my gone but denied any homicidal or suicidal thoughts. She said what others heard was just a matter of speech because she has been so frustrated and feeling worse. She did not expand on events in June beyond indicating that sometimes she just wanted to get away from her because he needed too much. She states that she has 2 biological children, one a son who lives in [place] and the other a daughter who lives elsewhere in [place]. She has another son whom she indicates recently after being seen here and requiring transfer to [facility]. She indicated that was difficult for her to talk about. She denies drinking daily alcohol instead stating that she will have a couple of beers and whiskey periodically. She does smoke but denies any drug use. Primary care provider reports patient has a history of some anxiety, that has been worse of late and history of depression. Patient was last seen in May. Does not carry a diagnosis of dementia nor definitive diagnosis of bipolar disorder. Work-up in the emergency room was remarkable for leukocytosis, lingular infiltrate, low potassium and drop in hemoglobin from prior values along with borderline blood pressures in somebody prescribed multiple medications. She was diagnosed with pneumonia and received a dose of Levaquin. COVID PCR was negative. Admitted for further evaluation and treatment including evaluation for potential need for geriatric psychiatry after management of acute medical issues. Review of Systems Const: Reports: fever(s) (Subjective), chills (Sometimes), body aches, fatigue, malaise, change in sleep pattern and other (Reports getting very hot at night but denies night sweats); Denies: change in appetite or change in weight Eyes: Reports: eye discharge and dry eyes; Denies: change in vision ENMT: Reports: dry mouth, nasal congestion and post nasal drip; Denies: throat pain, oral sores, bleeding gums or epistaxis Card: Reports: palpitations, lightheadedness, dyspnea on exertion and acrocyanosis; Denies: chest pain, edema, syncope or orthopnea Resp: Reports: dyspnea, productive cough, non-productive cough, wheezing, change in phlegm color, hemoptysis (Rare specks of blood) and chest congestion; Denies: stridor or pain on inspiration GI: Denies: abdominal pain, nausea, vomiting, diarrhea, constipation, hematochezia or melena : Denies: flank pain, difficulty voiding, dysuria, urinary frequency or hematuria Musc: Reports: extremity pain (Arms and legs bother her when she is doing activity, improved with rest), joint stiffness and muscle weakness; Denies: joint swelling, joint redness, joint warmth or muscle cramps Skin/Breast: Reports: pruritus (Lower extremities primarily), sores (Lower back that she scratches a lot) and dry skin; Denies: rash Neuro: Reports: weakness in extremities (Generalized), difficulty walking (Secondary to difficulty breathing and general weakness) and behavioral changes (Admits being upset with but denies behavioral changes otherwise); Denies: headache(s), numbness in extremities, frequent falls, Slurred speech present, difficulty communicating thoughts or involuntary movements Psych: Reports: anxiety, depression, sleeping more, irritability and difficulty concentrating; Denies: panic attacks, memory loss, visual hallucinations, auditory hallucinations, tactile hallucinations, suicidal ideation or homicidal ideation Endo: Reports: tired all the time, hot flashes and heat intolerance; Denies: polyuria, polydipsia or cold intolerance [place]/Lymph: Denies: easy bruising or easy bleeding All/Imm: Reports: itchy eyes and seasonal rhinorrhea Medications/Allergies Home Medications Medication Instructions Recorded Confirmed Last Taken Type aspirin 81 mg tablet,delayed 81 mg PO DAILY 09/08/19 08/02/21 Unknown History release (Adult Aspirin Regimen) mupirocin 2 % topical ointment 1 applic TOPICAL TID PRN #30 gm 03/24/20 08/02/21 Unknown Rx nitroglycerin 0.4 mg sublingual 0.4 mg SUBLINGUAL Q5M PRN #25 tab 08/31/20 08/02/21 Unknown Rx tablet (Nitrostat) furosemide 20 mg tablet (Lasix) 20 mg PO QAM PRN #30 tab 04/25/21 08/02/21 Unknown Rx triamcinolone acetonide 0.1 % 1 applic TOPICAL BID PRN #80 g 04/25/21 08/02/21 Unknown Rx topical cream benzonatate 200 mg capsule 200 mg PO TID PRN #90 cap 06/04/21 08/02/21 Unknown Rx albuterol sulfate 2.5 mg (3 mL) INHALATION Q4H PRN 06/10/21 08/02/21 Unknown Rx #75 ml cetirizine 10 mg tablet (Zyrtec) 10 mg PO DAILY 08/02/21 08/02/21 Unknown History clopidogrel 75 mg tablet 75 mg PO DAILY 08/02/21 08/02/21 Unknown History diltiazem HCl 60 mg 60 mg PO Q12H 08/02/21 08/02/21 Unknown History capsule,extended release 12 hr fenofibrate nanocrystallized 145 145 mg PO DAILY 08/02/21 08/02/21 Unknown History mg tablet (Tricor) fluticasone fur. 100 mcg-umeclid 1 inh INHALATION Q24H 08/02/21 08/02/21 Unknown History 62.5 mcg-vilant 25 mcg inhalat.powder (Trelegy Ellipta) hydroxyzine pamoate 50 mg capsule 50 mg PO BID 08/02/21 08/02/21 Unknown History losartan 100 mg tablet 100 mg PO DAILY 08/02/21 08/02/21 Unknown History metoprolol tartrate 25 mg tablet 12.5 mg PO BID 08/02/21 08/02/21 Unknown History ondansetron HCl 4 mg tablet 4 - 8 mg PO BID PRN 08/02/21 08/02/21 Unknown History (Zofran) venlafaxine 150 mg 150 mg PO BEDTIME 08/02/21 08/02/21 Unknown History capsule,extended release 24 hr (Effexor XR) Allergies Allergy/AdvReac Type Severity Reaction Status Date / Time cephalexin [From Keflex] Allergy Unknown Verified 08/02/21 09:21 PFSH Acute PFSH: Medical History (Updated 08/02/21 @ 20:54 by Yulia Miner MD) Anxiety with depression Arteriosclerotic heart disease (ASHD) Bipolar disorder Cervical disc disorder with myelopathy of mid-cervical region Chronic migraine CKD (chronic kidney disease) COPD (chronic obstructive pulmonary disease) Environmental and seasonal allergies Essential hypertension Fibromyalgia Hard of hearing History of borderline personality disorder Mixed hyperlipidemia Osteoarthritis, generalized Personal history of smoking Single functional kidney Vitamin B 12 deficiency Vitamin D deficiency Surgical History (Updated 08/02/21 @ 20:55 by Yulia Miner MD) History of cataract surgery History of heart artery stent LAD, 2010 left circumflex 2019 History of hysterectomy with bilateral oophorectomy History of nephrectomy, left 2009 at [facility] Hx of right breast biopsy needle Biopsy synergistic Family History (Updated 08/02/21 @ 20:49 by Yulia Miner MD) Mother Cancer Father Alcoholism Other Heart disease Psychiatric illness Denies family history of Diabetes Social History (Updated 08/02/21 @ 16:09 by Yulia Miner MD) Smoking and tobacco status: current every day smoker cigarettes Second hand smoke exposure: Yes Alcohol intake: current Alcohol intake frequency: few times a week Alcohol type: beer and hard liquor Substance/Drug Use: never Adopted: No Caregiver/support person: No Lives independently: Yes Household members: spouse Housing: House Marital status: Number of children: 3 service: No Current occupational status: retired and disabled Current occupational exposures/hazards: No Pets and animals: Yes Pets & animals: cat(s) and other Pets & animal details: guinea Current gender identity: Female Additional social history: patient has 3 biological children - one son has , another son lives in [place], a daughter lives elsewhere in [place] has children of his own Vitals/I&O/Wt Last Vital Signs Temp 98.1 F 08/02/21 09:22 Pulse 80 08/02/21 09:22 Resp 16 08/02/21 09:22 BP 102/67 08/02/21 09:22 Pulse Ox 92 08/02/21 09:22 Weight last 48 hrs Weight 56.699 kg Physical Exam Narrative: Constitutional: Asleep, easily arousable, initially hesitant to talk with me until she learned that I was the doctor that would be admitting her, cooperative thereafter HEENT: Mild bitemporal wasting, extraocular movements are intact, conjunctive are mildly injected, nasopharynx is dry, oropharynx with dry membranes Neck: Supple Respiratory: Pursed lip breathing noted, mild tachypnea, scattered wheezes right and left, rhonchi left lower lobe, intermittent nonproductive cough, chest expansion equal bilaterally Cardiovascular: Regular rhythm, no murmurs gallops or rubs, cyanosis of the feet noted, pulses are faint in all extremities but capillary refill is intact Abdomen: Soft, nontender, positive bowel sounds Extremities: No pitting edema, no calf tenderness, muscles are tender to palpation, no acute synovitis noted to large joints or hands Skin: Dry, no rashes Neuro: Face is symmetric, speech is clear, handgrip equal, strength equal at both feet, no abnormal movements Psych: Cooperative, intermittently with slightly pressured speech, able to tell history as she knows it with connected thoughts that make sense with what she is saying, evidence that there is some animosity between her and her as well as her and her 's children but denies carmen intention to harm her or his children physically, denied thoughts of self-harm, instead expressing a desire to get away from her although was worried about her animals Data : 08/02/21 09:30 08/02/21 09:30 Other Labs: Radiology Impressions Chest X-Ray 08/02/21 09:37 IMPRESSION: Acute lingular pneumonia. Laboratory Results WBC 14.4 10^3/uL (4.0-10.0) H 08/02/21 09:30 RBC 3.71 10^6/uL (4.1-5.3) L 08/02/21 09:30 Hgb 10.3 g/dL (11.5-15.3) L 08/02/21 09:30 Hct 32.1 % (37.0-47.0) L 08/02/21 09:30 MCV 86.5 fl (81-99) 08/02/21 09:30 MCH 27.8 pg (28.0-34.0) L 08/02/21 09:30 MCHC 32.1 g/dL (30.0-36.0) 08/02/21 09:30 RDW 14.3 % (12.1-15.1) 08/02/21 09:30 Plt Count 520 10^3/cmm (130-400) H 08/02/21 09:30 MPV 9.2 fL (7.4-10.4) 08/02/21 09:30 Neut % (Auto) 84.6 % 08/02/21 09:30 Lymph % (Auto) 8.7 % 08/02/21 09:30 [place] % (Auto) 4.8 % 08/02/21 09:30 Eos % (Auto) 0.3 % 08/02/21 09:30 Baso % (Auto) 0.3 % 08/02/21 09:30 Neut # (Auto) 12.17 10^3/uL (1.8-7.7) H 08/02/21 09:30 Lymph # (Auto) 1.3 10^3/uL (0.8-4.8) 08/02/21 09:30 [place] # (Auto) 0.7 10^3/uL (0.2-0.9) 08/02/21 09:30 Eos # (Auto) 0.1 10^3/uL (0.0-0.8) 08/02/21 09:30 Baso # (Auto) 0.1 10^3/uL (0.0-0.1) 08/02/21 09:30 Nucleated RBC % (auto) 0 % 08/02/21 09:30 Nucleated RBCs # 0.0 /100WBC 08/02/21 09:30 Sodium 136 mmol/L (136-145) 08/02/21 09:30 Potassium 3.3 mmol/L (3.5-5.1) L 08/02/21 09:30 Chloride 98 mmol/L (98-107) 08/02/21 09:30 Carbon Dioxide 27 mmol/L (22-29) 08/02/21 09:30 Anion Gap 14.3 (5-19) 08/02/21 09:30 BUN 10 mg/dL (8-23) 08/02/21 09:30 Creatinine 0.9 mg/dL (0.5-0.9) 08/02/21 09:30 GFR Calculation Not Reportable 08/02/21 09:30 Glucose 120 mg/dL (65-115) H 08/02/21 09:30 Calculated Osmolality 282 mOsm/kg (285-295) L 08/02/21 09:30 Calcium 9.0 mg/dL (8.5-10.5) 08/02/21 09:30 Total Bilirubin 0.2 mg/dL (0.15-1.2) 08/02/21 09:30 AST 15 U/L (0-32) 08/02/21 09:30 ALT 10 U/L (0-33) 08/02/21 09:30 Alkaline Phosphatase 66 IU/L (35-105) 08/02/21 09:30 Creatine Kinase 249 U/L (26-192) H 08/02/21 09:30 Total Protein 6.1 g/dL (6.6-8.7) L 08/02/21 09:30 Albumin 3.5 g/dL (3.5-5.2) 08/02/21 09:30 Globulin 2.6 g/dL (1.3-4.6) 08/02/21 09:30 Urine Color Yellow (Yellow) 08/02/21 10:12 Urine Appearance Cloudy (CLEAR) 08/02/21 10:12 Urine pH 6.5 (5-7) 08/02/21 10:12 Ur Specific [place] 1.010 (1.005-1.030) 08/02/21 10:12 Urine Protein Neg (Negative) 08/02/21 10:12 Urine Glucose (UA) Norm (Normal) 08/02/21 10:12 Urine Ketones Negative (Negative) 08/02/21 10:12 Urine Blood Neg (Negative) 08/02/21 10:12 Urine Nitrate Negative (Negative) 08/02/21 10:12 Urine Bilirubin Neg (Negative) 08/02/21 10:12 Urine Urobilinogen Norm mg/dL (Negative) 08/02/21 10:12 Ur Leukocyte Esterase 1+ (Negative) H 08/02/21 10:12 Urine RBC 5-10 /hpf (0-2) H 08/02/21 10:12 Urine WBC 25-40 /hpf (0-5) H 08/02/21 10:12 Ur Squamous Epith Cells 25-40 /hpf (0-5) H 08/02/21 10:12 Amorphous Sediment Not Reportable 08/02/21 10:12 Urine Bacteria 1+ /hpf (NONE) H 08/02/21 10:12 Salicylates 0.6 mg/dL (3-10) L 08/02/21 09:30 Urine Opiates Screen Negative ng/mL (Negative) 08/02/21 10:12 Acetaminophen < 5.0 ug/mL (10-30) L 08/02/21 09:30 Ur Barbiturates Screen Negative ng/mL (Negative) 08/02/21 10:12 Ur Phencyclidine Scrn Negative ng/mL (Negative) 08/02/21 10:12 Ur Amphetamines Screen Negative ng/mL (Negative) 08/02/21 10:12 U Benzodiazepines Scrn Negative ng/mL (Negative) 08/02/21 10:12 Urine Cocaine Screen Negative ng/mL (Negative) 08/02/21 10:12 U Marijuana (THC) Screen Negative ng/mL (Negative) 08/02/21 10:12 Ethyl Alcohol < 10 mg/dL (0-10) 08/02/21 09:30 Other data: Prior records reviewed: Reviewed various clinic notes Discussed with other providers: Discussed patient with PCP Kevyn Jean. She has anxiety but no known dementia. Pt and her are getting older and having a harder time caring for selves in the home, even before he broke his arm. No outside assistance. A&P Assessment and plan (1) Lingular pneumonia: Lingula, noted on chest x ray, with WBC 14, sputum change other symptoms as described Blood cultures COVID PCR negative MRSA, Legionella and bacterial antigens Sputum culture Continue levaquin started in ED, allergy to cephalosporins Pulmonary toilet Status: Acute (2) Weakness: Multifactorial from pneumonia, COPD, hypotension, hypoxemia, anemia, medication effect, fatigue Treating pneumonia Supplemental oxygen as needed Holding several antihypertensives, or decreasing dose Anemia work up Hold or decrease sedating medications PT/OT eval and treat Status: Acute (3) Anemia: Drop in Hgb from 13 to 10 without report of bleeding, clinically dry, normal MCV, specifc type unclear at this time Contributing factor for increasing weakness Chronically on aspirin and plavix Monitor for further drop in hemoglobin Check TIBC, coags, hemocult PPI daily Status: Acute (4) Arteriosclerotic heart disease (ASHD): With report of chest pain improved with nitroglycerin today prior to calling EMS, recevied aspirin per EMS History prior cardiac stent, recent in 2019 Chest pain free currently Serial cardiac enzymes Continue home aspirin, plavix, tricor, low dose betablocker, as needed nitroglycerin Decreased losartan to 25mg daily secondary to low normal blood pressures Continued home diltiazem Echo to evaluate current ejection fraction Status: Chronic (5) Anxiety with depression: History of bipolar disorder as well, chroncially on venlafaxine and hydroxyzine Review of old records demonstrate that in the distant past she had been on Lamictal, chronic benzodiazepines, trazodone and Celexa for mood disorders Continue Effexor and hydroxyzine presently Monitor how she is doing after treatment of pneumonia to determine if need for acute psychiatric evaluation versus outpatient follow-up Status: Chronic (6) COPD (chronic obstructive pulmonary disease): Related to chronic tobacco use History of requiring bronchoscopy in the past Continue home albuterol, will substitute budesonide, continue Tessalon Perles as needed We will try prednisone 20 mg a day and see if she can tolerate that we will need to monitor mental status Status: Chronic Qualifiers: COPD type: COPD with acute exacerbation Qualified Code(s): J44.1 - Chronic obstructive pulmonary disease with (acute) exacerbation (7) Nicotine dependence, cigarettes, with other nicotine-induced disorders: Nicotine patch if needed Status: Acute Plan Inpatient admission Check hemoglobin A1c secondary to borderline blood sugars and plan for steroids Lovenox for DVT prophylaxis as long as hemoglobin remains stable Case management/dialysis social worker to help with current home situation and disposition planning May require psychiatric evaluation and stay though will need to reevaluate after treating medical condition before determining Ultimate disposition is going to depend on response to treatment of acute medical conditions, need for psychiatric stabilization and ability to safely return home versus need for alternative living arrangements Findings, concerns including about the discrepant history and reported suicidal and homicidal threats, finding of pneumonia and anemia along with further evaluation and treatment ordered were discussed with patient she was given an opportunity to ask questions. Presently denying any suicidal or homicidal thoughts. Full code per discussion with patient Attestations Medical Necessity Statement*: Anticipated stay greater than two midnights inpatient with pneumonia, new anemia, weakness and known history of coronary artery disease presenting as described. She has several medical issues that will be managed as noted prior to determining potential need for psychiatric evaluation in geriatric psych facility. At risk of clinical decline without intervention in the inpatient setting and potentially at risk of harm to self or others based on available information. For these reasons requires close monitoring in the inpatient setting. Coding Level of Care Code Acute Feeder Tender for uMrali Quinn Diagnoses Lingular pneumonia J18.9 COPD (chronic obstructive pulmonary disease) J44.1 COPD type: COPD with acute exacerbation Arteriosclerotic heart disease (ASHD) I25.10 Nicotine dependence, cigarettes, with other nicotine-induced disorders F17.218 Weakness R53.1 Anemia D64.9 Anxiety with depression F41.8
[2021-08-02] MEDS: potassium chloride oral liq 20 mEq/15 mL UDC 40 MEQ PO (13:19)
[2021-08-02] MEDS: levofloxacin-dextrose 5 % 750 MG/150 ML PREMIX 100 MG IV (13:20)
[2021-08-02 14:09] LABS: Adenovirus Not Detected (NOT DETECT); Chlamydia Pneumoniae Not Detected (NOT DETECT); Coronavirus 229E,HKU1,NL63,OC4 Not Detected (NOT DETECT); Human Metapneumovirus Not Detected (NOT DETECT); Human Rhinovirus/Enterovirus Not Detected (NOT DETECT); Influenza A Not Detected (NOT DETECT); Influenza A H1 Not Detected (NOT DETECT); Influenza A H1-2009 Not Detected (NOT DETECT); Influenza A H3 Not Detected (NOT DETECT); Influenza B Not Detected (NOT DETECT); Mycoplasma Pneumoniae Not Detected (NOT DETECT); Parainfluenza Virus Type 1 Not Detected (NOT DETECT); Parainfluenza Virus Type 2 Not Detected (NOT DETECT); Parainfluenza Virus Type 3 Not Detected (NOT DETECT); Parainfluenza Virus Type 4 Not Detected (NOT DETECT); Respiratory Syncytial Virus A Not Detected (NOT DETECT); Respiratory Syncytial Virus B Not Detected (NOT DETECT); SARS-COV-2 Not Detected (NOT DETECT)
--- NOTE | 2021-08-02 16:33 | USCV_ITS ---
Zoila Rosario Age: 76 Gender: F : 1945 Exam Date: 08/02/2021 17:09 Ordering Phys: Yulia Miner MD Technologist: DEMETRIO Exam Location: [facility] [place] Indication: CHEST PAIN, SOB, WEAKNESS, H/O CAD BP: / HR: 95 Rhythm: Sinus Technical Quality: Adequate MEASUREMENTS (Male / Female) Normal Values 2D ECHO LV Diastolic Diameter PLAX 4.6 cm 4.2 - 5.9 / 3.9 - 5.3 cm LV Systolic Diameter PLAX 3.0 cm IVS Diastolic Thickness 1.3 cm 0.6 - 1.0 / 0.6 - 0.9 cm IVS Systolic Thickness 2.1 cm LVPW Diastolic Thickness 1.8 cm 0.6 - 1.0 / 0.6 - 0.9 cm LVPW Systolic Thickness 1.8 cm LVOT Diameter 2.0 cm LV Ejection Fraction 2D Teich 63.2 % LV Ejection Fraction MOD 2C 60.5 % LV Ejection Fraction 2C AL 60.8 % LA Diameter 4.2 cm LA Width 3.8 cm LA Height 4.9 cm RA Width 3.1 cm RA Height 4.2 cm Aorta at Sinotubular Diameter 2.2 cm M-MODE Aortic Annulus Diameter 2.6 cm LA Ao Ratio MM 1.6 MV E Point Septal Separation 0.9 cm DOPPLER AV Peak Velocity 207.3 cm/s LVOT Peak Velocity 130.0 cm/s AV Area Cont Eq vti 1.6 cm squared AV Area Cont Eq pk 2.0 cm squared MV Peak Velocity 181.0 cm/s MV Area PHT 2.6 cm squared Mitral E to A Ratio 0.7 MV E' Velocity 65.5 cm/s Mitral E to MV E' Ratio 9.2 Mitral E to LV E' Lateral Ratio 8.0 Mitral E to LV E' Septal Ratio 10.9 TR Peak Velocity 207.1 cm/s TR Peak Gradient 17.2 mmHg TR Mean Velocity 126.8 cm/s TR Mean Gradient 7.5 mmHg TR Velocity Time Integral 51.4 cm TV Peak E Velocity 55.0 cm/s Right Atrial Pressure 3.0 mmHg Pulmonary Artery Systolic Pressu 20.2 mmHg PV Peak Velocity 127.0 cm/s RV Acceleration Time 0.1 s RV Ejection Time 0.3 s RV AcT/ET 0.5 FINDINGS Left Ventricle Normal left ventricular size, systolic function and wall thickness, with no regional wall motion abnormalities. Left ventricular ejection fraction is estimated at 60 %. Normal diastolic function. Right Ventricle Normal right ventricular size and systolic function. Right ventricular systolic pressure 20.2 mmHg. Right Atrium Normal right atrial size. Left Atrium Mildly increased left atrial size. Mitral Valve Mild mitral annular calcification. Structurally normal mitral valve. No mitral valve stenosis. Trace mitral valve regurgitation. Aortic Valve Probably trileaflet aortic valve. No aortic valve stenosis. Moderate aortic valve regurgitation. Tricuspid Valve Structurally normal tricuspid valve. Trace tricuspid valve regurgitation. Pulmonic Valve Pulmonic valve not well visualized. No pulmonary valve stenosis. No pulmonary valve regurgitation. Pericardium No pericardial effusion. Aorta Normal size aortic root and proximal ascending aorta. Normal- sized inferior vena cava with normal respiratory variation. CONCLUSIONS 1. Normal left ventricular size, systolic function and wall thickness, with no regional wall motion abnormalities. Left ventricular ejection fraction is estimated at 60 %. Normal diastolic function. 2. Normal right ventricular size and systolic function. 3. Pulmonary artery pressure estimated at 20 mmHg. 4. Moderate aortic valve regurgitation. 5. No prior similar studies to compare. Galilea Garcia MD (Electronically Signed) Final Date: 03 August 2021 14:04 S
[2021-08-02 17:45] LABS: Troponin(5th) Baseline 21 ng/L (0-10)
--- NOTE | 2021-08-02 18:33 | ECG_ITS ---
[facility] Test Date: 2021-08-02 Pat Name: Zoila Rosario Department: Room: Gender: Female Roving Hauler: : 1945 Requested By: Yulia Miner Order Number: [id number] Wesley MD: Avery Lozano M.D. Measurements Intervals [place] Rate: 97 P: 73 [place]: 158 QRS: -22 QRSD: 84 T: 79 QT: 356 QTc: 454 Interpretive Statements SINUS RHYTHM POSSIBLE LEFT ATRIAL ENLARGEMENT [-0.1mV P-WAVE IN V1/V2] ANTEROSEPTAL MYOCARDIAL INFARCTION , OF INDETERMINATE AGE [40+ ms Q WAVE IN V1-V4] Compared to ECG 08/02/2021 10:02:46 Left-axis deviation no longer present Myocardial infarct finding still present Electronically Signed On 08-02-2021 17:14:56 THIRD HAND by Avery Lozano M.D. [email or web address] [facility].[email or web address]/store/[id number]
[2021-08-02 19:41] VITALS: BP 105/74; PULSE 84; RESP 18; TEMP 37.2; O2SAT 97
[2021-08-02 20:00] VITALS: BP 110/74; PULSE 84; RESP 16; O2SAT 99
[2021-08-02] MEDS: predniSONE 20 mg Tablet PO (20:03)
[2021-08-02] MEDS: docusate sodium 100 mg Capsule PO (20:03)
[2021-08-02] MEDS: enoxaparin 40 mg/0.4 mL Syringe SUBCUT (20:03)
[2021-08-02] MEDS: sodium chlor 0.9% + KCl 20 mEq 20 MEQ/1,000 ML BAG 75 MEQ IV (20:06)
[2021-08-02 20:57] LABS: NT Pro B Type Natriuretic Pept 3049 pg/mL (0-450)
[2021-08-02 21:20] VITALS: PULSE 101; RESP 18; O2SAT 94
[2021-08-02] MEDS: dilTIAZem ER (12HR) 60 mg Capsule PO (21:42)
[2021-08-02] MEDS: venlafaxine ER (24HR) 150 mg Capsule PO (21:43)
[2021-08-02] MEDS: metoprolol tartrate 25 mg Tablet 12.5 MG PO (21:48)
[2021-08-02 21:59] LABS: Troponin 5 2HR 21.01 ng/L (0-10); Troponin 5 2HR Delta 0.01 ABS# (0-10)
[2021-08-02] MEDS: hyDROXYzine 25 mg Capsule PO (22:24)
[2021-08-02 23:33] VITALS: BP 97/78; PULSE 84; RESP 18; TEMP 37.2; O2SAT 96
[2021-08-03] VITALS (11 sets, daily range): BP systolic 90–164; BP diastolic 57–94; PULSE 67–127; RESP 18–22; TEMP 36.6–37.1; O2SAT 90–97
[2021-08-03 00:06] LABS: Troponin 5 6HR 22.58 ng/L (0-10)
[2021-08-03 00:13] LABS: Troponin 5 6HR Delta 1.58 ng/L (0-12)
[2021-08-03] MEDS: benzonatate 100 mg Capsule 200 MG PO (01:33)
[2021-08-03 04:34] LABS: Basophils % 0.1 %; Eosinophils % 0.1 %; Hemoglobin 10.6 g/dL (11.5-15.3); Lymphocytes # 0.7 10^3/uL (0.8-4.8); Lymphocytes % 6.3 %; Mean Corpuscular HGB Conc 32.1 g/dL (30.0-36.0); Mean Corpuscular Hemoglobin 27.9 pg (28.0-34.0); Mean Corpuscular Volume 86.8 fl (81-99); Mean Platelet Volume 9.1 fL (7.4-10.4); Monocytes # 0.1 10^3/uL (0.2-0.9); Monocytes % 1.1 %; Neutrophils # 10.75 10^3/uL (1.8-7.7); Neutrophils % 91.2 %; Nucleated Red Blood Cells % 0 %; Platelet Count 487 10^3/cmm (130-400); Red Cell Distribution Width 14.4 % (12.1-15.1); White Blood Count 11.8 10^3/uL (4.0-10.0)
[2021-08-03 04:46] LABS: Partial Thromboplastin Time 39.9 SECONDS (23.9-36.7)
[2021-08-03 05:27] LABS: Procalcitonin 0.07 ng/mL (0-0.5); Thyroid Stimulating Hormone 1.13 uIU/mL (0.27-4.20)
[2021-08-03 05:38] LABS: Anion Gap 16.4 (5-19); Blood Urea Nitrogen 14 mg/dL (8-23); Calcium 9.8 mg/dL (8.5-10.5); Carbon Dioxide 21 mmol/L (22-29); Chloride 103 mmol/L (98-107); Glucose 141 mg/dL (65-115); Iron 59 ug/dL (37-145); Osmolality Calculated 285 mOsm/kg (285-295); Phosphorus 2.6 mg/dL (2.5-4.5); Potassium 4.4 mmol/L (3.5-5.1); Sodium 136 mmol/L (136-145); Total Iron Binding Capacity 294 mcg/dl; Unsaturated Iron Binding 235 ug/dL (112-347)
--- NOTE | 2021-08-03 07:11 | PC.NURSE ---
RE[facility] TO [facility]AM[facility]
--- NOTE | 2021-08-03 07:17 | PC.NURSE ---
PATIENT TAKEN TO MED SURG VIA CART IVF INFUSING
[2021-08-03] MEDS: docusate sodium 100 mg Capsule PO ×2 (08:23→17:21)
[2021-08-03] MEDS: clopidogrel 75 mg Tablet PO (08:23)
[2021-08-03] MEDS: aspirin 81 mg EC Tablet PO (08:23)
[2021-08-03] MEDS: fenofibrate 145 mg Tablet PO (08:23)
[2021-08-03] MEDS: predniSONE 20 mg Tablet PO (08:24)
[2021-08-03] MEDS: pantoprazole DR 40 mg Tablet PO (08:25)
[2021-08-03] MEDS: cetirizine 10 mg Tablet PO (08:25)
[2021-08-03] MEDS: budesonide 0.5 mg/2 mL Neb INHALATION ×2 (08:48→20:48)
[2021-08-03] MEDS: ipratropium-albuterol 3 mL Neb INHALATION ×3 (08:48→20:48)
--- NOTE | 2021-08-03 10:20 | PC.CHAP ---
Pastoral Care Encounter/Spiritual Assessment Type of Contact [] Declined building architect visit [] Patient/Family/Request visit [] Outpatient visit [] Follow-up visit [] Physician referral [] Code/Alert [x] Routine visit [] Staff referral [] Actively dying [] Patient sleeping [] Family support [] [] Out of room [] Palliative care [] [] Receiving care in room [] Pre-surgical visit [] Trauma [] Long length of stay [] ICU visit [] Other: Relational/Emotional Strength [x] Patient feels connected with others/family/visitors/staff [] Distress [] Loneliness/isolation [] Abandonment Spirituality of Patient x] Person of Sandra [] Attends Zoroastrian of their Sandra [x] Believes in Prayer [] Reads Bible or Congregation materials [] There are Spiritual issues to be addressed 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 Interventions [x] Prayer [x] Active listening x] Non-anxious presence [] Spiritual/emotional support [] Crisis/trauma care [] Spiritual counseling [] Bereavement support [] Provided bereavement packet [] Provided Bible/devotional materials [] Provided toy/stuffed animal, coloring book to patient or family member [] Provided Communion [] Anointing/[place] [] Salvation [x] Completed spiritual assessment [] Other: Impact on Illness or Injury [] Angry [] Fearful [] Anxious [] Often cries [] Exhaustion [] Unable to work [] Unable to attend confucianism [] Unable to walk/stand [] Unable to read [] Unable to drive [] Unable to eat/drink [] Unable to sleep [] Unable to be with family [] Patient intubated [] Other: Summary Time spent with patient
--- NOTE | 2021-08-03 12:08 | P.PN_ITS ---
Subjective Subjective: Zoila reports she does not understand why she is on a 96-hour hold. I reviewed her history and physical, and significant concern for suicidal ideation and homicidal ideation. She reports she is coughing. Some shortness of breath when she gets up and moves around. Medications: Reviewed: Yes Vitals/I&O/Wt Last Vital Signs Temp 98.2 F 08/03/21 08:00 Pulse 88 08/03/21 08:50 Resp 18 08/03/21 08:50 BP 90/63 08/03/21 08:00 Pulse Ox 95 08/03/21 08:50 08/02/21 08/03/21 08/03/21 22:59 06:59 14:59 Intake Total 1000 / 1000 Balance 1000 / 1000 Weight last 48 hrs Weight 56.699 kg Physical Exam Narrative: General exam is no distress Neck is supple no lymphadenopathy or thyromegaly Cardiovascular regular rate and rhythm Lungs a few fine crackles, left lower lung Abdomen is soft, positive bowel sounds. Extremities no cyanosis clubbing or edema Data : 08/03/21 04:08 08/03/21 04:08 Micro: Microbiology 08/02/21 10:12 Legionella Urinary Antigen - Final Urine,Clean Catch Bacterial Antigens - Final 08/02/21 16:10 Blood Culture - Preliminary Blood SPECIMEN COLLECTED 08/02/21 16:16 Blood Culture - Preliminary Blood SPECIMEN COLLECTED A&P Assessment and plan (1) Lingular pneumonia: Covid PCR negative Continue Levaquin Await sputum culture MRSA PCR pending This morning she appears to have weaned to room air. White blood cell count is decreasing Status: Acute (2) Weakness: Multifactorial neck Physical therapy evaluation is ongoing Her weakness has improved currently. Status: Acute (3) Anemia: Hemoglobin is stable this morning No evidence of active bleeding No evidence of iron deficiency Status: Acute (4) Anxiety with depression: Significant issues with depression, making homicidal and suicidal statements on admission. She has been placed on a 96-hour hold Psychiatric consultation to determine whether geriatric psych placement will be needed. Continue Effexor currently Status: Chronic (5) COPD (chronic obstructive pulmonary disease): Evidence of mild exacerbation Pulmonary toilet Prednisone 20 mg daily Status: Chronic Qualifiers: COPD type: COPD with acute exacerbation Qualified Code(s): J44.1 - Chronic obstructive pulmonary disease with (acute) exacerbation Plan Coronary disease. Continue home medications. Troponin without significant delta. Chronically on aspirin, Plavix, beta-dimas, TriCor. EKG is nonacute. Echocardiogram has been ordered and pending. Mild hyperglycemia. A1c pending Attestations Medical Necessity Statement*: Needs continued hospitalization for IV antibiotics for pneumonia, while awaiting evaluation by psychiatry to determine need for transfer to geriatric psych or if 96-hour hold can be withdrawn Coding Level of Care Code Acute Physical Fitness Teacher for g Fwd Diagnoses Lingular pneumonia J18.9 Weakness R53.1 Anemia D64.9 Anxiety with depression F41.8 COPD (chronic obstructive pulmonary disease) J44.1 COPD type: COPD with acute exacerbation
[2021-08-03] MEDS: hyDROXYzine 25 mg Capsule PO ×2 (13:20→21:14)
[2021-08-03] MEDS: levofloxacin-dextrose 5 % 750 MG/150 ML PREMIX 100 MG IV (15:58)
[2021-08-03] MEDS: acetaminophen 325 mg Tablet 650 MG PO (15:58)
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
[2021-08-03] MEDS: venlafaxine ER (24HR) 150 mg Capsule PO (21:14)
[2021-08-03] MEDS: metoprolol tartrate 25 mg Tablet 12.5 MG PO (21:14)
[2021-08-03] MEDS: enoxaparin 40 mg/0.4 mL Syringe SUBCUT (21:15)
[2021-08-03 21:25] LABS: Estmated Average Glucose 134; Hemoglobin A1C 6.3 % (4.0-6.0)
[2021-08-04] VITALS (184 sets, daily range): BP systolic 86–148; BP diastolic 60–101; PULSE 83–126; RESP 17–40; TEMP 35.8–36.8; O2SAT 69–100
[2021-08-04] MEDS: ondansetron 4 MG Tablet PO (00:13)
[2021-08-04] MEDS: acetaminophen 325 mg Tablet 650 MG PO (00:17)
--- NOTE | 2021-08-04 00:40 | ECG_ITS ---
[facility] Test Date: 2021-08-04 Pat Name: Zoila Rosario Department: Room: 269 Gender: Female Chief Of Surgery: : 1945 Requested By: Jm Vaz Order Number: [id number] Reading MD: MANJULA COHEN Measurements Intervals [place] Rate: 104 P: 76 [place]: 176 QRS: -30 QRSD: 93 T: 81 QT: 345 QTc: 455 Interpretive Statements SINUS TACHYCARDIA POSSIBLE LEFT ATRIAL ENLARGEMENT [-0.1mV P WAVE IN V1/V2] INCOMPLETE RIGHT BUNDLE BRANCH BLOCK [90+ ms QRS DURATION, TERMINAL R IN V1/V2, 40+ ms S IN I/aVL/V4/V5/V6] ANTEROSEPTAL MYOCARDIAL INFARCTION , OF INDETERMINATE AGE [40+ ms Q WAVE IN V1-V4] Compared to ECG 08/02/2021 16:48:30 Incomplete right bundle-branch block now present Sinus rhythm no longer present Myocardial infarct finding still present Electronically Signed On 08-04-2021 21:48:06 GOVERNMENT PROPERTY INSPECTOR by MANJULA COHEN [email or web address].[employer]/store/[id number]
--- NOTE | 2021-08-04 00:45 | ECG_ITS ---
[facility] Test Date: 2021-08-04 Pat Name: Zoila Rosario Department: Room: [facility] Gender: Female Admissions Specialist: : 1945 Requested By: Jm Vaz Order Number: [id number] Reading MD: Measurements Intervals [place] Rate: 104 P: 76 [place]: 176 QRS: -30 QRSD: 93 T: 81 QT: 345 QTc: 455 Interpretive Statements SINUS TACHYCARDIA POSSIBLE LEFT ATRIAL ENLARGEMENT [-0.1mV P WAVE IN V1/V2] INCOMPLETE RIGHT BUNDLE BRANCH BLOCK [90+ ms QRS DURATION, TERMINAL R IN V1/V2, 40+ ms S IN I/aVL/V4/V5/V6] ANTEROSEPTAL MYOCARDIAL INFARCTION , OF INDETERMINATE AGE [40+ ms Q WAVE IN V1-V4] Compared to ECG 08/02/2021 16:48:30 Incomplete right bundle-branch block now present Sinus rhythm no longer present Myocardial infarct finding still present [id number]
[2021-08-04 00:50] LABS: Basophils # 0.1 10^3/uL (0.0-0.1); Basophils % 0.2 %; Hematocrit 38.6 % (37.0-47.0); Hemoglobin 11.6 g/dL (11.5-15.3); Lymphocytes # 5.4 10^3/uL (0.8-4.8); Lymphocytes % 21.3 %; Mean Corpuscular HGB Conc 30.1 g/dL (30.0-36.0); Mean Platelet Volume 9.1 fL (7.4-10.4); Monocytes # 0.9 10^3/uL (0.2-0.9); Monocytes % 3.4 %; Neutrophils # 18.63 10^3/uL (1.8-7.7); Neutrophils % 73.3 %; Nucleated Red Blood Cells % 0 %; Platelet Count 769 10^3/cmm (130-400); Red Blood Count 4.29 10^6/uL (4.1-5.3); Red Cell Distribution Width 14.7 % (12.1-15.1); White Blood Count 25.4 10^3/uL (4.0-10.0)
[2021-08-04 00:52] LABS: Alveolar-Arterial Oxygen Gradi 2.2 mmHg (5-10); Arterial Blood Gas Hematocrit 35.1 % (37-47); Blood Gas Sample Site Radial, left; Blood Gas Sample Type Arterial; Carboxyhemoglobin 0.7 %THgb (0.4-20.1); HCO3 ABG 18.9 mmol/L (22-26); HGB O2 Sat 50.1 % (95-100); Ionized Calcium Level - ABG 1.4 mmol/L (1.1-1.4); Methemoglobin 0.8 % (0.4-1.5); Oxygen Device NC; Oxygen Saturation ABG 50.9; PO2 ABG 42.3 mmHg (80.0-100.0); Potassium Level - ABG 4.1 mmol/L (3.5-5.0); Total Hemoglobin 11.4 g/dL (12-16)
[2021-08-04 00:56] LABS: ABG PCO2 75.9 mmHg (35-45)
[2021-08-04 01:00] LABS: INR 1.18 (0.8-1.2)
[2021-08-04 01:07] LABS: D Dimer 1.65 ug/mIFEU (0-0.59)
[2021-08-04 01:10] LABS: Slide Review Slide Review Perform
--- NOTE | 2021-08-04 01:11 | PC.NURSE ---
Rapid Response At approximately 0000 patient began complaining of shortness of breath and appeared anxious and was requesting a breathing treatment. Breathing slightly labored with expiratory wheezes. RT notified that patient was requesting breathing treatment. Patient also complained of nausea and generalized chest discomfort. Prior pleuritic chest discomfort had been reported by patient. Tylenol and Zofran given at 0017. Patient reported incontinence of bladder but stated that she did not want changed until after she got her breathing treatment. Patient with one on one sitter d/t prior SI. This nurse returned to nurses station to call RT about breathing treatment. One on one sitter remained with patient and turned on emergency light at approximately 0030 reporting that patient had become unresponsive. Upon entering room this nurse found patient laid back in bed, unresponsive to verbal stimuli. Patient would open eyes to sternal rub but would quickly close them. Breathing noted to be labored and becoming agonal, rapid response initiated at 0032. Breath sounds decreased with limited air movement, O2 on at 2L. RT to room and inserted nasal airway with improved air movement. Unable to get O2 saturation on patient. Manual blood pressure with systolic in the 70s, Dr. Vaz at bedside. IVF bolus initiated by BATH HOUSE ATTENDANT along with Levo drip. Two additional IV's placed during rapid response, one to each AC. EKG performed per Dr. Vaz's orders. Labs ordered per Dr. Vaz: CBC, CMP, PT/INR, Procalcitonin, Troponin, ABG. Patient did wake up and was attempting to sit up, was attempting to talk but speech remained unclear and garbled. CT scans ordered per Dr. Vaz and patient taken to CT by BATH HOUSE ATTENDANT and ICU nurse. This nurse called report to JOSE Powell in ICU for patient transfer. Patient's personal belongings taken to ICU by one on one sitter.
[2021-08-04 01:12] LABS: Troponin T (5th) Once 76 ng/L (0-10)
[2021-08-04 01:20] LABS: NT Pro B Type Natriuretic Pept 11425 pg/mL (0-450); Procalcitonin 0.06 ng/mL (0-0.5)
[2021-08-04 01:31] LABS: Alanine Aminotransferase 11 U/L (0-33); Albumin Level 3.7 g/dL (3.5-5.2); Alkaline Phosphatase 79 IU/L (35-105); Anion Gap 23.4 (5-19); Aspartate Amino Transferase 20 U/L (0-32); Blood Urea Nitrogen 18 mg/dL (8-23); Calcium 9.4 mg/dL (8.5-10.5); Carbon Dioxide 15 mmol/L (22-29); Chloride 102 mmol/L (98-107); Globulin 2.5 g/dL (1.3-4.6); Glucose 230 mg/dL (65-115); Osmolality Calculated 291 mOsm/kg (285-295); Potassium 4.4 mmol/L (3.5-5.1); Sodium 136 mmol/L (136-145); Total Bilirubin 0.2 mg/dL (0.15-1.2); Total Protein 6.2 g/dL (6.6-8.7)
[2021-08-04 01:32] LABS: Lactate (Lactic Acid level) 5.1 mmol/L (0.5-2.2)
--- NOTE | 2021-08-04 01:32 | CTR_ITS ---
PROCEDURE INFORMATION: Exam: CT Head Without Contrast Exam date and time: 08/04/2021 1:32 AM Age: 76 years old Clinical indication: Altered mental status/memory loss and weakness, extremity; Confusion or disorientation; Patient HX: Patient admitted for copd exacerbation presented sudden onset of decreased responsiveness and left upper/lower extremity weakness. ; Additional info: Change in mental status/poss CVA TECHNIQUE: Imaging protocol: Computed tomography of the head without contrast. Radiation optimization: All CT scans at this facility use at least one of these dose optimization techniques: automated exposure control; mA and/or kV adjustment per patient size (includes targeted exams where dose is matched to clinical indication); or iterative reconstruction. Other technique: STROKE PROTOCOL was implemented. COMPARISON: CT head wo con* [id number] 03/12/2017 4:31 PM RADIATION DOSE METRICS: Total DLP (mGy-cm): 1334.88 FINDINGS: Brain: A tiny chronic lacunar infarction is present in the left caudate. Mild atrophy and mild white matter chronic microvascular changes are noted. No hemorrhage or evidence of acute infarction. Cerebral ventricles: No ventriculomegaly. Paranasal sinuses: Mild bilateral maxillary and left sphenoid sinusitis is appreciated. Mastoid air cells: Visualized mastoid air cells are well aerated. Bones/joints: Unremarkable. No acute fracture. Soft tissues: Unremarkable. CT/CT head wo con* [id number] IMPRESSION: 1. No acute intracranial abnormality. 2. Mild sinusitis ASSESSMENT: ASPECTS (Chelsie Stroke Program Early CT Score) is 10.
--- NOTE | 2021-08-04 01:43 | XRR_ITS ---
PROCEDURE INFORMATION: Exam: XR Chest Exam date and time: 08/04/2021 1:43 AM Age: 76 years old Clinical indication: Shortness of breath and tachypnea; Prior surgery; Surgery type: Coronary stents; Patient HX: Resp distress. Tachypnea. Hypoxia. History of copd. TECHNIQUE: Imaging protocol: XR of the chest. Views: 1 view. COMPARISON: CR XR chest 1V portable [id number] 08/02/2021 9:52 AM FINDINGS: Lungs: The lung opacities have significantly worsened since the prior exam with large confluent airspace opacities developing in the right lung and lingula. Rick B-lines are noted. Pleural spaces: Unremarkable. No pleural effusion. No pneumothorax. Heart/Mediastinum: Unremarkable. No cardiomegaly. Bones/joints: Unremarkable. XR/XR chest 1V [id number] IMPRESSION: Worsening lung opacities which are likely secondary to pulmonary edema.
--- NOTE | 2021-08-04 01:44 | PC.RESP ---
Notified via text @ 0012 pt requested breathing tx. Arrived @ 0030 as Rapid Response/Pt unresponsive called. Snoring respirations noted, nasal airway positioned STAT, 02 increased to 4 lpm, ABG obtained and processed/results transmitted to responding Haritha
--- NOTE | 2021-08-04 01:50 | PC.NURSE ---
Family Notification Patient's sister Estefania notified of patient status and that patient has been transferred to ICU 5.
[2021-08-04 02:18] LABS: Glucose Point of Care 224 mg/dL (70-110)
--- NOTE | 2021-08-04 02:18 | PM.CCNAC ---
Critical Care Event Note The high probability of a clinically significant, sudden or life threatening deterioration of the patient's [] system(s) required my full and direct attention, intervention and personal management. The critical care time is as shown. This time is in addition to time spent performing any reported procedures but includes the following: [x] Data and vital sign review and interpretation [x] Patient assessment, examination and intervention [x] Documentation [x] Medication orders and management Critical Care Time Code activated: No Critical Care Time (min): 60 Additional information about critical care time: At roughly 12:30 AM, rapid response was called to room 269, patient was nonresponsive, she is fairly responsive during the day, carry a conversations, on 2 to 3 L nasal cannula, admitted for pneumonia, concerns for suicidal ideation, according to nursing staff, midnight was fairly uneventful, she was giving patient Tylenol, when she became nonresponsive, upon my examination, patient did not have a palpable blood pressure, tachycardic heart rates in the 100s, saturating mid 80s, on 2 L, patient would awaken to sternal rub, would not follow commands, patient had discernible weakness on the left upper extremity, compared to the right, spontaneous movement of right upper extremity, no spontaneous movement to left upper extremity, did follow commands by squeezing my hands on the right, not on the left, gaze palsy preferring to the right, unable to move her lower extremities, unable to follow other commands, she was started on Levophed of 6, given 500 cc bolus, blood pressures improving to 100s over 60s, had a nasal airway placed, O2 sats improved into the high 80s, EKG no acute ST-T wave changes she had no chest pain complaints, still not following commands, she was moaning, but not vocalizing anything, immediately as there was concerns for sudden change in mentation, concern for stroke, Dr. Roberson was contacted at 1258, as patient was waiting will be down to the CAT scanner for head CT, patient was reexamined multiple times that she was having her head CT, she had spontaneous movement the right upper extremity, not moving the left, preferring the right, she was reexamined after head CT, she is able to stick out her tongue, when asked what her name was, she said my name is and stopped, slight slurring of her words, no facial droop visualized, she is able to look at me when prompted, she is able to look at the other side when prompted, she is discernible deficits on left upper extremity, and left lower extremity, she is able to keep the right upper and right lower extremity raise, left upper extremity and left lower extremity drift and hit the bed, her NIH stroke scale was calculated 25, after discussion with Dr. Roberson, decision was made to pursue TPA for concerns for CVA. Patient was moved to the ICU, received TPA, she is on 6 of Levophed, placed on BiPAP 100% FiO2, Decision was made to do a trial of BiPAP, as her ABG showed a pH of 7.0, PCO2 of 76, PO2 42.3, on 4 L, this is likely venous blood draw Patient was reexamined, she is alert to person, To place, not to time She is able to squeeze my fingers bilaterally, has good strength upper and lower extremities, is able to wiggle her toes, no slurring of her words She is laying on her side, On her percent FiO2, saturating high 90s Normotensive Plan on treating blood pressure if greater than 185/105 We will give a dose of Lasix Hold off on fluid therapy Continue Levophed to maintain MAP greater than 65 Repeat ABG at 230 Coding Level of Care Code Acute Cigar Packer And Picker for Murali Quinn
[2021-08-04] MEDS: ipratropium-albuterol 3 mL Neb INHALATION ×4 (02:21→20:13)
--- NOTE | 2021-08-04 02:29 | PC.NURSE ---
Dr. Vaz bedside at this time, IVF that were running upon arrival to ICU from [facility], were stopped per his verbal order.
--- NOTE | 2021-08-04 02:37 | PC.NURSE ---
Orders to check another ABG at [address] Vaz. Clarified with Dr. Vaz and he is aware that the patient received TPA.
[2021-08-04 02:52] LABS: ABG PCO2 51.7 mmHg (35-45); ABG PH Result 7.23 (7.35-7.45); Arterial Blood Gas Hematocrit 34.8 % (37-47); Base Excess ABG -5.9 mmol/L (-2.0-2.0); Blood Gas Allen Test Pos; Blood Gas Operator Identificat JB; Blood Gas Sample Site Brachial, right; Blood Gas Sample Type Arterial; Blood Gas Tidal Volume 0.45; HCO3 ABG 21.8 mmol/L (22-26); Oxygen Device BIPAP
[2021-08-04] MEDS: FUROsemide 10 mg/mL SDV 4mL 40 MG IVP (03:13)
[2021-08-04] MEDS: piperacillin-tazobactam 3.375 GM in sodium chloride 0.9% (plus) 50 ML IV ×3 (03:17→20:19)
--- NOTE | 2021-08-04 04:23 | PC.NURSE ---
TPA finished infusing at 0225
[2021-08-04 04:24] LABS: Basophils # 0.2 10^3/uL (0.0-0.1); Basophils % 0.3 %; Eosinophils # 0.1 10^3/uL (0.0-0.8); Eosinophils % 0.1 %; Hematocrit 36.5 % (37.0-47.0); Hemoglobin 11.6 g/dL (11.5-15.3); Lymphocytes % 2.4 %; Mean Corpuscular HGB Conc 31.8 g/dL (30.0-36.0); Mean Corpuscular Volume 88.2 fl (81-99); Monocytes # 1.8 10^3/uL (0.2-0.9); Monocytes % 4.2 %; Neutrophils # 38.61 10^3/uL (1.8-7.7); Neutrophils % 89.6 %; Nucleated Red Blood Cells % 0 %; Platelet Count 659 10^3/cmm (130-400); Red Blood Count 4.14 10^6/uL (4.1-5.3); Red Cell Distribution Width 14.7 % (12.1-15.1)
[2021-08-04 04:27] LABS: Fibrinogen 367 mg/dL (174-498); INR 1.29 (0.8-1.2)
[2021-08-04 04:34] LABS: White Blood Count 43.1 10^3/uL (4.0-10.0)
[2021-08-04 04:35] LABS: Alanine Aminotransferase 12 U/L (0-33); Albumin Level 3.6 g/dL (3.5-5.2); Alkaline Phosphatase 78 IU/L (35-105); Anion Gap 18.7 (5-19); Aspartate Amino Transferase 28 U/L (0-32); Blood Urea Nitrogen 20 mg/dL (8-23); Calcium 8.8 mg/dL (8.5-10.5); Carbon Dioxide 21 mmol/L (22-29); Chloride 104 mmol/L (98-107); Globulin 2.3 g/dL (1.3-4.6); Glucose 127 mg/dL (65-115); Osmolality Calculated 292 mOsm/kg (285-295); Potassium 4.7 mmol/L (3.5-5.1); Sodium 139 mmol/L (136-145); Total Bilirubin 0.2 mg/dL (0.15-1.2); Total Protein 5.9 g/dL (6.6-8.7)
--- NOTE | 2021-08-04 05:31 | PC.NURSE ---
Patient throughout the night has progressively shown improvement. She is currently alert and oriented to person, time, and place. She intermittently forgets why she is here and the current situation. Originally came to me in sinus tachycardia, now normal sinus in the 80's for HR. Still tolerating bipap and maintaining oxygen saturation. Breath sounds still coarse and expiratory wheezes present all throughout. No void so far since arrival to ICU, no bowel movement. Patient able to move left extremities, no drift present on either side. Patient states that sensation to the left-side feels differently than the right. Patient still slurring her words some. She is able to hold a conversation. Rambling present, but according to the patient sitter, she did that before her stroke event. Holds appropriate conversation. Seems to be appropriately receptive. No facial droop. Even smile, raises her eyebrows evenly, able to stick out her tongue. 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 Upon arrival to ICU from [facility], patient belongings placed in closet/cabinet. One of her hearing aids is present and with leather etcher, currently charging at bedside. The other one was not with her, and this was also told in report from [facility] nurse. Dentures in cup and in closet. Other clothes and cane in room/closet.
--- NOTE | 2021-08-04 06:43 | PC.NURSE ---
Dr. Vaz at bedside at 0641 this morning. Updated on patient status and current neuro status per one of my previous notes. No new orders at this time.
--- NOTE | 2021-08-04 06:47 | USCV_ITS ---
Zoila Rosario Age: 76 Gender: F : 1945 Exam Date: 08/04/2021 11:05 Ordering Phys: Jm Vaz MD Technologist: Frederick Gudino [place] [facility] [place]: CVA Risk Factors: Previous Vascular Surgery: Right Brachial BP: / Left Brachial BP: / Right Left Velocity (cm/s) Spectral Plaque Velocity (cm/s) Spectral Plaque Syst/Diast Broadening Syst/Diast Broadening 73.35/ 16.50 Prox CCA 109.40/ 14.50 86.00/ 17.60 Mid CCA 114.50/ 23.10 76.90/ 19.40 Distal CCA 131.50/ 21.00 86.80/ 18.40 Prox ICA 128.80/ 19.70 99.90/ 22.30 Mid ICA 182.70/ 48.60 99.90/ 25.00 Distal ICA 127.50/ 34.20 180.10 ECA 142.00 1.16 ICA/CCA 1.60 Retrograde Vertebral Antegrade 44.70/ 11.80 cm/s 118.3/ 15.80 cm/s 0 Ross Subclavian Bi 45.80 129.0 0 CONCLUSIONS Right ICA stenosis <50%. Left ICA stenosis 50-69%. Retrograde Doppler flow noted in the right vertebral artery. Monophasic subclavian suggestive of subclavian steal and proximal subclavian stenosis Normal antegrade Doppler flow noted in the left vertebral artery. Bravo Mrai MD (Electronically Signed) Final Date: 04 August 2021 16:29 S
[2021-08-04] MEDS: pantoprazole DR 40 mg Tablet PO (08:01)
[2021-08-04] MEDS: predniSONE 20 mg Tablet PO (08:01)
[2021-08-04] MEDS: docusate sodium 100 mg Capsule PO ×2 (08:01→17:34)
[2021-08-04] MEDS: cetirizine 10 mg Tablet PO (08:01)
[2021-08-04] MEDS: budesonide 0.5 mg/2 mL Neb INHALATION ×2 (08:08→20:13)
--- NOTE | 2021-08-04 12:02 | PC.OT ---
OT EVALUATION HELD THIS DATE DUE TO TPA ADMINISTRATION. EVAL TO BE ATTEMPTED TOMORROW.
--- NOTE | 2021-08-04 13:09 | P.PN_ITS ---
Subjective Subjective: Events of yesterday noted. Patient reported she was doing well this morning when I talked to her. She wanted her BiPAP off. Denied any weakness on either side. Yesterday she was found altered, with weakness on her left side. Stroke alert was called and she received TPA. There was also concern for increasing infiltrates on her x-ray suspicious for pulmonary edema or aspiration. Medications: Reviewed: Yes Vitals/I&O/Wt Last Vital Signs Temp 96.5 F L 08/04/21 12:15 Pulse 97 08/04/21 12:26 Resp 24 H 08/04/21 12:26 BP 128/81 08/04/21 12:26 Pulse Ox 96 08/04/21 12:26 08/03/21 08/04/21 08/04/21 22:59 06:59 14:59 Intake Total 150 / 1390 117.703 / 1507.703 50 / 50 Balance 150 / 1390 117.703 / 1507.703 50 / 50 Physical Exam Narrative: General exam is no distress Neck is supple no lymphadenopathy or thyromegaly Cardiovascular regular rate and rhythm Lungs a few faint crackles but no wheezing currently. Abdomen is soft, positive bowel sounds. Extremities no cyanosis clubbing or edema Neurologic: I cannot detect any focal deficits Data : 08/04/21 03:44 08/04/21 03:44 Micro: Microbiology 08/02/21 16:16 Blood Culture - Preliminary Blood NEGATIVE TO DATE 08/02/21 16:10 Blood Culture - Preliminary Blood NEGATIVE TO DATE 08/03/21 01:50 MRSA Culture - Final Nose 08/02/21 10:12 Legionella Urinary Antigen - Final Urine,Clean Catch Bacterial Antigens - Final A&P Assessment and plan (1) Lingular pneumonia: Covid PCR negative Continue Zosyn. She was switched to this secondary to concern of aspiration. Await sputum culture MRSA PCR negative Wean off BiPAP as tolerated Status: Acute (2) Weakness: Multifactorial Physical therapy evaluation is ongoing Event last night with unilateral weakness consistent with CVA for which she received TPA. Continue therapy evaluations and treatment. Status: Acute (3) Anemia: Hemoglobin is stable No evidence of active bleeding No evidence of iron deficiency Status: Acute (4) Anxiety with depression: Significant issues with depression, making homicidal and suicidal statements on admission. She has been placed on a 96-hour hold Psychiatric consultation to determine whether geriatric psych placement will be needed. This is pending Continue Effexor currently Status: Chronic (5) COPD (chronic obstructive pulmonary disease): Evidence of mild exacerbation Pulmonary toilet Prednisone 20 mg daily Status: Chronic Plan CVA. Left-sided deficits have resolved. She received TPA. Repeat CT head tomorrow. Permissive hypertension. Statin 24 hours after TPA will be continued. Resume aspirin and Plavix. Carotid duplex ordered. Hypotension, associated with neurologic event. Placed on norepinephrine. Wean off as tolerated. Holding antihypertensives until blood pressure better. Coronary disease. Continue home medications. Troponin without significant delta. Chronically on aspirin, Plavix, beta-dimas, TriCor. EKG is nonacute. Echocardiogram demonstrated no obvious thrombus, EF of 60%, moderate aortic regurgitation Mild hyperglycemia. A1c 6.3%. Will need appropriate diet on discharge, consideration for Metformin as outpatient. Attestations Medical Necessity Statement*: Needs continued hospitalization for evaluation and treatment of CVA, status post TPA Critical Care Time: The high probability of a clinically significant, sudden or life threatening deterioration of the patient's [neurologic, pulmonary, cardiovascular, infectious disease system(s) required my full and direct attention, intervention and personal management. The critical care time is as shown. 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
--- NOTE | 2021-08-04 13:16 | XR_ITS ---
WS: [id number] XR chest 1V portable [id number] REASON FOR EXAM: follow up infiltrates FINDINGS: Significant overlying artifact. Compared to the examination of earlier this morning, the pulmonary opacities appear less dense and co nfluent. Moderate abnormality remains. No other significant interval change or new finding. XR/XR chest 1V portable [id number] IMPRESSION: Interval improvement of pulmonary opacities. Considering the time frame, these lung opacities may represent pulmonary edema.
--- NOTE | 2021-08-04 19:23 | PC.NURSE ---
Shift Summary: Uneventful shift. Patient stayed in bed throughout the shift due to post TPA precautions. Recieved TPA on 08/04/2021 at 0220. Patient scores 0 on the NIH scale and is alert to person, place, time, and situation most of the time, but has occasional episodes of confusion lasting 5-10 minutes where she forgets where she is and thinks the nurses are family members. Urine output appears to be adequate, but exact amount is unknown. Patient has had occasional coughing fits and wet the bed a few times.
[2021-08-04] MEDS: atorvastatin 40 mg Tablet PO (20:21)
[2021-08-05] VITALS (53 sets, daily range): BP systolic 96–141; BP diastolic 64–106; PULSE 100–125; RESP 17–32; TEMP 36.4–37.1; O2SAT 85–100
[2021-08-05] MEDS: acetaminophen 325 mg Tablet 650 MG PO (01:12)
[2021-08-05] MEDS: piperacillin-tazobactam 3.375 GM in sodium chloride 0.9% (plus) 50 ML IV ×3 (02:51→20:44)
[2021-08-05] MEDS: ipratropium-albuterol 3 mL Neb INHALATION ×4 (03:47→20:30)
[2021-08-05 04:15] LABS: Basophils % 0.1 %; Eosinophils % 0.1 %; Hematocrit 30.3 % (37.0-47.0); Hemoglobin 9.8 g/dL (11.5-15.3); Lymphocytes # 1.6 10^3/uL (0.8-4.8); Lymphocytes % 11.1 %; Mean Corpuscular HGB Conc 32.3 g/dL (30.0-36.0); Mean Corpuscular Hemoglobin 27.1 pg (28.0-34.0); Mean Corpuscular Volume 83.7 fl (81-99); Mean Platelet Volume 9.1 fL (7.4-10.4); Monocytes # 0.7 10^3/uL (0.2-0.9); Monocytes % 5.3 %; Neutrophils # 11.61 10^3/uL (1.8-7.7); Neutrophils % 82.6 %; Nucleated Red Blood Cells % 0 %; Platelet Count 503 10^3/cmm (130-400); Red Blood Count 3.62 10^6/uL (4.1-5.3); Red Cell Distribution Width 14.6 % (12.1-15.1); White Blood Count 14.1 10^3/uL (4.0-10.0)
[2021-08-05 04:23] LABS: D Dimer 3.17 ug/mIFEU (0-0.59)
[2021-08-05 04:31] LABS: Alanine Aminotransferase 12 U/L (0-33); Albumin Level 3.4 g/dL (3.5-5.2); Alkaline Phosphatase 58 IU/L (35-105); Anion Gap 13.3 (5-19); Aspartate Amino Transferase 20 U/L (0-32); Blood Urea Nitrogen 21 mg/dL (8-23); Calcium 9.8 mg/dL (8.5-10.5); Carbon Dioxide 23 mmol/L (22-29); Chloride 107 mmol/L (98-107); Globulin 2.8 g/dL (1.3-4.6); Glucose 99 mg/dL (65-115); Osmolality Calculated 293 mOsm/kg (285-295); Potassium 3.3 mmol/L (3.5-5.1); Sodium 140 mmol/L (136-145); Total Bilirubin 0.3 mg/dL (0.15-1.2); Total Protein 6.2 g/dL (6.6-8.7)
[2021-08-05 04:43] LABS: Creatine Phosphokinase 138 U/L (26-192); NT Pro B Type Natriuretic Pept 9975 pg/mL (0-450)
--- NOTE | 2021-08-05 06:00 | ECG_ITS ---
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: : 1945 Requested By: Jm Vaz Order Number: [id number] Reading MD: MANJULA COHEN Measurements Intervals Morton Rate: 106 P: 75 GA: 139 QRS: -28 QRSD: 94 T: 52 QT: 356 QTc: 474 Interpretive Statements SINUS TACHYCARDIA POSSIBLE LEFT ATRIAL ENLARGEMENT [-0.1mV P-WAVE IN V1/V2] BORDERLINE LEFT AXIS DEVIATION [QRS AXIS < -20] ABNORMAL RHYTHM ECG Compared to ECG 08/04/2021 00:36:35 Incomplete right bundle-branch block no longer present Myocardial infarct finding no longer present Electronically Signed On 08-05-2021 22:56:21 LEAD PAINTER by MANJULA COHEN [email or web address].[id number]
--- NOTE | 2021-08-05 08:00 | CT_ITS ---
WS: [id number] CT HEAD NONCONTRAST HISTORY: s/p tpa TECHNIQUE: Contiguous axial imaging performed through the brain in 2.5 mm imaging. Bone and soft tiss ue windows. Sagittal and coronal reformats reviewed. All CT scans at [facility] use at least one of these dose optimization techniques: automated exposure control; mA and/or kV adjustment per pa tient size (includes targeted exams where dose is matched to clinical indication); or iterative recon struction. DLP: 876.02 mGy.cm COMPARISON: 08/04/2021 No interval intracranial hemorrhage. There is no midline shift or mass effect. Moderate bilateral atrophy and chronic microvascular ischemic disease. Prior lacunar infarct in the L EFT caudate. Ventricles: Ventricles and extra-axial spaces are prominent on the basis of central and peripheral a trophy. No intraventricular blood. Paranasal sinuses: As visualized are clear. Mastoid air cells: Well pneumatized. Calvarium and scalp: Skull is intact with no soft tissue edema or swelling. CT/CT head wo con* [id number] IMPRESSION: 1. No acute intracranial hemorrhage or edema. 2. Moderate cerebral atrophy and chronic ischemic disease. Remote lacunar infa rct in the LEFT caudate.
[2021-08-05] MEDS: predniSONE 20 mg Tablet PO (08:29)
[2021-08-05] MEDS: clopidogrel 75 mg Tablet PO (08:29)
[2021-08-05] MEDS: pantoprazole DR 40 mg Tablet PO (08:29)
[2021-08-05] MEDS: aspirin 81 mg EC Tablet PO (08:29)
[2021-08-05] MEDS: FUROsemide 10 mg/mL SDV 2mL 20 MG IVP (08:30)
[2021-08-05] MEDS: docusate sodium 100 mg Capsule PO ×2 (08:30→18:44)
[2021-08-05] MEDS: cetirizine 10 mg Tablet PO (08:30)
[2021-08-05] MEDS: potassium chloride ER 20 mEq Tablet 40 MEQ PO ×2 (08:30→14:26)
[2021-08-05] MEDS: budesonide 0.5 mg/2 mL Neb INHALATION (09:08)
[2021-08-05] MEDS: metoprolol tartrate 25 mg Tablet 12.5 MG PO ×2 (09:46→20:44)
--- NOTE | 2021-08-05 10:02 | PC.NURSE ---
Pt appears to be resting comfortably in bed. Awakened and became tearful and agitated. Reoriented. Pt fell back asleep but appears to have slight unrest.
--- NOTE | 2021-08-05 11:57 | CTR_ITS ---
PROCEDURE INFORMATION: Exam: CTA Chest With Contrast Exam date and time: 08/05/2021 11:57 AM Age: 76 years old Clinical indication: Other: Weakness; Additional info: Subclavian steal suggested carotid US TECHNIQUE: Imaging protocol: Computed tomographic angiography of the chest with contrast. 3D rendering (Not supervised by radiologist): MIP and/or 3D reconstructed images were created by the technologist. Radiation optimization: All CT scans at this facility use at least one of these dose optimization techniques: automated exposure control; mA and/or kV adjustment per patient size (includes targeted exams where dose is matched to clinical indication); or iterative reconstruction. Contrast material: OMNI 350; Contrast volume: 62 ml; Contrast route: INTRAVENOUS (IV); COMPARISON: CT chest w con* [id number] 08/09/2018 8:18 AM RADIATION DOSE METRICS: Total DLP (mGy-cm): 568.73 FINDINGS: Pulmonary arteries: No large central pulmonary embolus. Limited evaluation for segmental/subsegmental pulmonary emboli given motion artifact. Aorta: Unremarkable. No aortic aneurysm. No aortic dissection. Great vessels off aortic arch: Aberrant right subclavian artery anatomy noted. Lungs: There is mosaic pattern of attenuation of the lungs, in association with paraseptal thickening and small bilateral pleural effusions, right greater than left, consistent with pulmonary edema. There is ground-glass opacities scattered throughout both lungs in a predominantly peripheral distribution. No pneumothorax. Pleural spaces: See Lungs finding. Heart: Mildly enlarged heart. Coronary atherosclerotic calcifications seen. Trace pericardial effusion noted. Lymph nodes: Mildly prominent reactive mediastinal and bilateral hilar lymph nodes noted. Bones/joints: Degenerative changes of the spine seen. Soft tissues: Unremarkable. CT/CT angio chest [id number] IMPRESSION: 1. No large central pulmonary embolus. Limited evaluation for segmental/subsegmental pulmonary emboli given motion artifact. 2. Commonly reported imaging features of (COVID-19) pneumonia are present. Other processes such as influenza pneumonia and organizing pneumonia, as can be seen with drug toxicity and connective tissue disease, can cause a similar imaging pattern. 3. Superimposed pulmonary edema with small bilateral pleural effusions.
--- NOTE | 2021-08-05 13:57 | P.PN_ITS ---
Subjective Subjective: Zoila reports she is doing okay this morning. Denies being short of breath. No chest pain. Medications: Reviewed: Yes Vitals/I&O/Wt Last Vital Signs Temp 98.2 F 08/05/21 10:00 Pulse 100 08/05/21 13:01 Resp 31 H 08/05/21 13:01 BP 104/76 08/05/21 13:01 Pulse Ox 97 08/05/21 13:01 08/04/21 08/05/21 08/05/21 22:59 06:59 14:59 Intake Total 50 / 100 250 / 350 Output Total 250 / 250 200 / 450 Balance -200 / -150 50 / -100 Physical Exam Narrative: General exam is no distress Neck is supple no lymphadenopathy or thyromegaly Cardiovascular regular rate and rhythm Lungs a few faint crackles but no wheezing currently. Abdomen is soft, positive bowel sounds. Extremities no cyanosis clubbing or edema Neurologic: I cannot detect any focal deficits Data : 08/05/21 03:43 08/05/21 03:43 A&P Assessment and plan (1) Lingular pneumonia: Covid PCR negative Continue Zosyn. She was switched to this secondary to concern of aspiration. White blood cell count was decreasing Await sputum culture MRSA PCR negative Status: Acute (2) Weakness: Multifactorial Physical therapy evaluation is ongoing Event last night with unilateral weakness consistent with CVA for which she received TPA. Continue therapy evaluations and treatment. Status: Acute (3) Anemia: Hemoglobin is stable No evidence of active bleeding No evidence of iron deficiency Status: Acute (4) Anxiety with depression: Significant issues with depression, making homicidal and suicidal statements on admission. She has been placed on a 96-hour hold Nursing alerted me that the 96-hour hold has been rescinded. Psychiatry has seen her but there is not a note available yet in the chart. Status: Chronic (5) COPD (chronic obstructive pulmonary disease): Evidence of mild exacerbation Pulmonary toilet Overall improved. Can discontinue prednisone. Status: Chronic Plan CVA. Left-sided deficits have resolved. She received TPA. Repeat CT head today no acute changes. Permissive hypertension. Carotid duplex suggesting subclavian steal. CT chest angiogram ordered. Continue statin. Plavix and aspirin resumed. Hypotension, associated with neurologic event. Placed on norepinephrine. This has been weaned off Coronary disease. Continue home medications. Troponin without significant delta. Chronically on aspirin, Plavix, beta-dimas, TriCor. EKG is nonacute. Echocardiogram demonstrated no obvious thrombus, EF of 60%, moderate aortic regurgitation. TriCor discontinued and statin started. Beta-dimas held for permissive hypertension. Mild hyperglycemia. A1c 6.3%. Will need appropriate diet on discharge, consideration for Metformin as outpatient. Attestations Medical Necessity Statement*: Needs continued hospitalization for close monitoring following TPA and CVA, treatment of possible aspiration pneumonitis with IV antibiotics. May transfer out of ICU. 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
[2021-08-05] MEDS: iohexol 350 mg/mL 100 mL Btl IV (16:08)
--- NOTE | 2021-08-05 17:34 | PC.SOCIAL ---
IM follow up explained and copy provided. Pt verbalized understanding
[2021-08-05] MEDS: atorvastatin 40 mg Tablet PO (20:44)
[2021-08-05] MEDS: enoxaparin 40 mg/0.4 mL Syringe SUBCUT (20:44)
[2021-08-05 21:29] LABS: Glucose Point of Care 159 mg/dL (70-110)
[2021-08-05] MEDS: venlafaxine ER (24HR) 150 mg Capsule PO (23:16)
[2021-08-06] VITALS (7 sets, daily range): BP systolic 100–163; BP diastolic 57–96; PULSE 79–115; RESP 16–26; TEMP 36.3–37; O2SAT 94–97
[2021-08-06] MEDS: piperacillin-tazobactam 3.375 GM in sodium chloride 0.9% (plus) 50 ML IV ×3 (02:43→18:09)
--- NOTE | 2021-08-06 06:00 | ECG_ITS ---
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 Measurements Intervals [place] Rate: 109 P: 78 W[place]: 147 QRS: -32 QRSD: 85 T: 51 QT: 334 QTc: 450 Interpretive Statements SINUS TACHYCARDIA LEFT ATRIAL ENLARGEMENT [-0.15mV P WAVE IN V1/V2] LEFT AXIS DEVIATION [QRS AXIS < -30] POSSIBLE RIGHT VENTRICULAR CONDUCTION DELAY [RSR (QR) IN V1/V2] SEPTAL MYOCARDIAL INFARCTION , OF INDETERMINATE AGE [40+ ms Q WAVE IN V1/V2] Compared to ECG 08/05/2021 06:59:14 Myocardial infarct finding now present Electronically Signed On 08-08-2021 9:03:48 VECTOR CONTROL SPECIALIST by Avery Lozano M.D. [id number]
[2021-08-06 06:42] LABS: Basophils % 0.1 %; Eosinophils % 0.1 %; Hematocrit 32.6 % (37.0-47.0); Hemoglobin 10.6 g/dL (11.5-15.3); Lymphocytes # 1.8 10^3/uL (0.8-4.8); Mean Corpuscular HGB Conc 32.5 g/dL (30.0-36.0); Mean Corpuscular Hemoglobin 27.6 pg (28.0-34.0); Mean Corpuscular Volume 84.9 fl (81-99); Mean Platelet Volume 9.2 fL (7.4-10.4); Monocytes # 0.8 10^3/uL (0.2-0.9); Monocytes % 4.7 %; Neutrophils # 13.72 10^3/uL (1.8-7.7); Neutrophils % 83.3 %; Nucleated Red Blood Cells % 0 %; Platelet Count 559 10^3/cmm (130-400); Red Blood Count 3.84 10^6/uL (4.1-5.3); Red Cell Distribution Width 14.6 % (12.1-15.1); White Blood Count 16.5 10^3/uL (4.0-10.0)
[2021-08-06 07:09] LABS: Alanine Aminotransferase 12 U/L (0-33); Albumin Level 3.7 g/dL (3.5-5.2); Alkaline Phosphatase 63 IU/L (35-105); Anion Gap 17.7 (5-19); Aspartate Amino Transferase 18 U/L (0-32); Blood Urea Nitrogen 14 mg/dL (8-23); Calcium 8.9 mg/dL (8.5-10.5); Carbon Dioxide 22 mmol/L (22-29); Chloride 105 mmol/L (98-107); Globulin 2.8 g/dL (1.3-4.6); Glucose 93 mg/dL (65-115); Magnesium 2.1 mg/dL (1.7-2.3); Osmolality Calculated 292 mOsm/kg (285-295); Potassium 3.7 mmol/L (3.5-5.1); Sodium 141 mmol/L (136-145); Total Bilirubin 0.4 mg/dL (0.15-1.2); Total Protein 6.5 g/dL (6.6-8.7)
[2021-08-06] MEDS: cetirizine 10 mg Tablet PO (09:20)
[2021-08-06] MEDS: docusate sodium 100 mg Capsule PO ×2 (09:20→18:09)
[2021-08-06] MEDS: predniSONE 20 mg Tablet PO (09:20)
[2021-08-06] MEDS: aspirin 81 mg EC Tablet PO (09:21)
[2021-08-06] MEDS: clopidogrel 75 mg Tablet PO (09:21)
[2021-08-06] MEDS: pantoprazole DR 40 mg Tablet PO (09:21)
[2021-08-06] MEDS: metoprolol tartrate 25 mg Tablet 12.5 MG PO ×2 (09:21→21:20)
[2021-08-06] MEDS: ipratropium-albuterol 3 mL Neb INHALATION ×3 (09:35→21:05)
[2021-08-06] MEDS: budesonide 0.5 mg/2 mL Neb INHALATION ×2 (09:36→21:06)
--- NOTE | 2021-08-06 12:18 | P.PN_ITS ---
Subjective Subjective: Zoila is kind of challenging to communicate with this morning as she states that her hearing aids are missing. She has some pressured words but doesn't appear to be any physical distress. Her white count is noted to be up a little bit that this morning. Vitals/I&O/Wt Last Vital Signs Temp 98.1 F 08/06/21 08:49 Pulse 115 H 08/06/21 09:38 Resp 18 08/06/21 09:38 BP 142/96 08/06/21 08:49 Pulse Ox 96 08/06/21 09:38 08/05/21 08/06/21 08/06/21 22:59 06:59 14:59 Intake Total 50 / 50 750 / 800 50 / 50 Output Total 150 / 150 Balance 50 / 50 600 / 650 50 / 50 Physical Exam Narrative: She has flight of ideas she has flight of ideas and pressured speech this morning. She is not in any physical distress however. Neck/C-Spine: COMMON NORMALS: no JVD Resp: OTHER: Decreased breath sounds bilateral decreased breath sounds bilaterally Cardio: COMMON NORMALS: no JVD, regular rate, regular rhythm, S1 normal heart sound present, S2 normal heart sound present, No gallops present (Cardio), No clicks present (Cardio), No murmurs present (Cardio), No rub (Cardio) and Peripheral pulses 2+ throughout RATE: regular rate RHYTHM: regular rhythm HEART SOUNDS: S1 normal heart sound present and S2 normal heart sound present PERIPHERAL PULSES: Peripheral pulses 2+ throughout OTHER: Regular Data : 08/06/21 05:51 08/06/21 05:51 A&P Assessment and plan (1) Single functional kidney: Status: Chronic (2) Hard of hearing: Status: Chronic (3) Nicotine dependence, cigarettes, with other nicotine-induced disorders: Status: Acute (4) Lingular pneumonia: Since she has had quite an eventful stay, and she hasn't quite recovered from her pneumonia, I think I'll keep her here at least 1 more night. Status: Acute (5) COPD (chronic obstructive pulmonary disease): Status: Chronic Attestations Medical Necessity Statement*: Think I want to keep her at least 1 more I will keep her here 1 more night for antibiotics by IV. Coding Level of Care Code Acute Tile Layer Drainage for [facility] Fwd Diagnoses Single functional kidney Z90.5 Hard of hearing H91.90 Nicotine dependence, cigarettes, with other nicotine-induced disorders F17.218 Lingular pneumonia J18.9 COPD (chronic obstructive pulmonary disease) J44.9
[2021-08-06 13:51] LABS: Basophils % 0.1 %; Hematocrit 32.4 % (37.0-47.0); Hemoglobin 10.3 g/dL (11.5-15.3); Lymphocytes # 0.7 10^3/uL (0.8-4.8); Mean Corpuscular HGB Conc 31.8 g/dL (30.0-36.0); Mean Corpuscular Hemoglobin 27.2 pg (28.0-34.0); Mean Corpuscular Volume 85.7 fl (81-99); Mean Platelet Volume 9.1 fL (7.4-10.4); Monocytes # 0.5 10^3/uL (0.2-0.9); Monocytes % 3.2 %; Neutrophils # 12.86 10^3/uL (1.8-7.7); Neutrophils % 91.1 %; Nucleated Red Blood Cells % 0 %; Platelet Count 553 10^3/cmm (130-400); Red Blood Count 3.78 10^6/uL (4.1-5.3); Red Cell Distribution Width 14.7 % (12.1-15.1); White Blood Count 14.1 10^3/uL (4.0-10.0)
[2021-08-06] MEDS: enoxaparin 40 mg/0.4 mL Syringe SUBCUT (21:19)
[2021-08-06] MEDS: venlafaxine ER (24HR) 150 mg Capsule PO (21:20)
[2021-08-06] MEDS: atorvastatin 40 mg Tablet PO (21:20)
[2021-08-07] VITALS (11 sets, daily range): BP systolic 75–170; BP diastolic 43–75; PULSE 79–102; RESP 18–22; TEMP 36.7–37.2; O2SAT 89–97
[2021-08-07] MEDS: piperacillin-tazobactam 3.375 GM in sodium chloride 0.9% (plus) 50 ML IV ×2 (02:32→10:13)
[2021-08-07] MEDS: ipratropium-albuterol 3 mL Neb INHALATION ×2 (02:47→09:09)
[2021-08-07 06:41] LABS: Basophils % 0.2 %; Eosinophils # 0.1 10^3/uL (0.0-0.8); Eosinophils % 0.8 %; Hematocrit 31.5 % (37.0-47.0); Hemoglobin 9.6 g/dL (11.5-15.3); Lymphocytes # 1.8 10^3/uL (0.8-4.8); Lymphocytes % 15.2 %; Mean Corpuscular HGB Conc 30.5 g/dL (30.0-36.0); Mean Corpuscular Hemoglobin 27.3 pg (28.0-34.0); Mean Corpuscular Volume 89.5 fl (81-99); Mean Platelet Volume 9.1 fL (7.4-10.4); Monocytes # 0.6 10^3/uL (0.2-0.9); Monocytes % 5.2 %; Neutrophils # 9.26 10^3/uL (1.8-7.7); Neutrophils % 77.9 %; Nucleated Red Blood Cells % 0 %; Platelet Count 552 10^3/cmm (130-400); Red Blood Count 3.52 10^6/uL (4.1-5.3); Red Cell Distribution Width 14.9 % (12.1-15.1); White Blood Count 11.9 10^3/uL (4.0-10.0)
[2021-08-07 07:25] LABS: Alanine Aminotransferase 10 U/L (0-33); Albumin Level 3.2 g/dL (3.5-5.2); Alkaline Phosphatase 56 IU/L (35-105); Anion Gap 15.3 (5-19); Aspartate Amino Transferase 14 U/L (0-32); Blood Urea Nitrogen 13 mg/dL (8-23); Calcium 8.9 mg/dL (8.5-10.5); Carbon Dioxide 24 mmol/L (22-29); Chloride 104 mmol/L (98-107); Glucose 88 mg/dL (65-115); Magnesium 2.1 mg/dL (1.7-2.3); Osmolality Calculated 290 mOsm/kg (285-295); Potassium 3.3 mmol/L (3.5-5.1); Sodium 140 mmol/L (136-145); Total Bilirubin 0.3 mg/dL (0.15-1.2); Total Protein 6.2 g/dL (6.6-8.7)
[2021-08-07] MEDS: cetirizine 10 mg Tablet PO (08:32)
[2021-08-07] MEDS: clopidogrel 75 mg Tablet PO (08:32)
[2021-08-07] MEDS: docusate sodium 100 mg Capsule PO (08:32)
[2021-08-07] MEDS: pantoprazole DR 40 mg Tablet PO (08:32)
[2021-08-07] MEDS: aspirin 81 mg EC Tablet PO (08:32)
[2021-08-07] MEDS: metoprolol tartrate 25 mg Tablet 12.5 MG PO (08:33)
[2021-08-07] MEDS: predniSONE 20 mg Tablet PO (08:33)
[2021-08-07] MEDS: budesonide 0.5 mg/2 mL Neb INHALATION (09:09)
--- NOTE | 2021-08-07 09:59 | PC.NURSE ---
Patient hallucinating at this time. States she is seeing a black man in her room and that he is stealing her personal belongings. Told this nurse i needed to call the police to have him arrested.
--- NOTE | 2021-08-07 12:06 | PM.DCS ---
Discharge Providers Date of Admission: 08/02/21 12:41 Date of Discharge: August 07, 2021 Attending Provider at Admission: Yulia Miner MD Attending Provider at Discharge: Ellis Crain MD Primary Care Provider: OMID Hernandez Diagnoses at Discharge Discharge Diagnosis (1) Single functional kidney: Status: Chronic (2) Hard of hearing: Status: Chronic (3) Anemia: Status: Acute (4) Weakness: Status: Acute (5) Nicotine dependence, cigarettes, with other nicotine-induced disorders: Status: Acute (6) Lingular pneumonia: Status: Acute (7) Acute hyponatremia: Status: Resolved (8) OA (osteoarthritis) of knee: Status: Chronic (9) Arteriosclerotic heart disease (ASHD): Status: Chronic (10) CKD (chronic kidney disease): Status: Chronic (11) Environmental and seasonal allergies: Status: Chronic (12) Personal history of smoking: Status: Chronic (13) COPD (chronic obstructive pulmonary disease): Status: Chronic (14) Essential hypertension: Status: Chronic (15) Mixed hyperlipidemia: Status: Chronic (16) Vitamin D deficiency: Status: Chronic (17) Vitamin B 12 deficiency: Status: Chronic (18) Anxiety with depression: Status: Chronic (19) Marital/partner relational problem: Status: Acute Reason for Visit Reason for Visit: WEAKNESS Hospital Course Hospital Course Patient was admitted with some mental status issues and was noted to have a lingular pneumonia. During her evaluation, and treatment for her pneumonia she had an acute CVA. She was treated with TPA with complete resolution of her symptoms. On the 2 days that I have known the patient, it is apparent to me that she suffers from a fair amount of dementia. She is very hard of hearing and so she is difficult to communicate with. I am concerned about her home situation, but according to her he wants her to come home. I have warned the patient that she might not be safe at home and she voiced understanding. We will advised the of the same situation. She will finish out antibiotics for her pneumonia, and should follow-up with her primary care provider this week. Discharge Data Studies Completed and Pending Completed Studies During Hospitalization Category Date Time Status CT head wo con* [id number] Routine Cat Scan 08/05/21 08:[address] head wo con* [id number] Stat Cat Scan 08/04/21 01:32 Completed CTA chest [CT angio chest [id number]] Routine Cat Scan 08/05/21 11:57 Completed XR chest 1V [id number] Stat Exams 08/04/21 01:43 Completed XR chest 1V portable [id number] Routine Exams 08/04/21 13:16 Completed XR chest 1V portable [id number] Stat Exams 08/02/21 09:37 Completed CV carotid duplex BI* [id number] Routine Ultrasound 08/04/21 06:47 Completed CV. echo complete* [id number] Routine Ultrasound 08/02/21 16:33 Completed Pending at discharge Category Date Time Status Blood Culture Stat Lab 08/02/21 16:10 Results Immunochemical Fecal OCB Routine Lab 08/02/21 18:36 Ordered Sputum Culture and Gram Stain Routine Lab 08/02/21 18:36 Uncollected Radiology Impressions Chest X-Ray 08/04/21 13:16 IMPRESSION: Interval improvement of pulmonary opacities. Considering the time frame, these lung opacities may represent pulmonary edema. Head CT 08/05/21 08:00 IMPRESSION: 1. No acute intracranial hemorrhage or edema. 2. Moderate cerebral atrophy and chronic ischemic disease. Remote lacunar infarct in the LEFT caudate. Chest CTA 08/05/21 11:57 IMPRESSION: 1. No large central pulmonary embolus. Limited evaluation for segmental/subsegmental pulmonary emboli given motion artifact. 2. Commonly reported imaging features of (COVID-19) pneumonia are present. Other processes such as influenza pneumonia and organizing pneumonia, as can be seen with drug toxicity and connective tissue disease, can cause a similar imaging pattern. 3. Superimposed pulmonary edema with small bilateral pleural effusions. Laboratory Results WBC 11.9 10^3/uL (4.0-10.0) H 08/07/21 05:59 RBC 3.52 10^6/uL (4.1-5.3) L 08/07/21 05:59 Hgb 9.6 g/dL (11.5-15.3) L 08/07/21 05:59 Hct 31.5 % (37.0-47.0) L 08/07/21 05:59 MCV 89.5 fl (81-99) 08/07/21 05:59 MCH 27.3 pg (28.0-34.0) L 08/07/21 05:59 MCHC 30.5 g/dL (30.0-36.0) 08/07/21 05:59 RDW 14.9 % (12.1-15.1) 08/07/21 05:59 Plt Count 552 10^3/cmm (130-400) H 08/07/21 05:59 MPV 9.1 fL (7.4-10.4) 08/07/21 05:59 Neut % (Auto) 77.9 % 08/07/21 05:59 Lymph % (Auto) 15.2 % 08/07/21 05:59 Ballard % (Auto) 5.2 % 08/07/21 05:59 Eos % (Auto) 0.8 % 08/07/21 05:59 Baso % (Auto) 0.2 % 08/07/21 05:59 Neut # (Auto) 9.26 10^3/uL (1.8-7.7) H 08/07/21 05:59 Lymph # (Auto) 1.8 10^3/uL (0.8-4.8) 08/07/21 05:59 Ballard # (Auto) 0.6 10^3/uL (0.2-0.9) 08/07/21 05:59 Eos # (Auto) 0.1 10^3/uL (0.0-0.8) 08/07/21 05:59 Baso # (Auto) 0.0 10^3/uL (0.0-0.1) 08/07/21 05:59 Nucleated RBC % (auto) 0 % 08/07/21 05:59 Nucleated RBCs # 0.0 /100WBC 08/07/21 05:59 PT 16.50 SECONDS (12.1-14.9) H 08/04/21 03:44 INR 1.29 (0.8-1.2) H 08/04/21 03:44 APTT 39.9 SECONDS (23.9-36.7) H 08/03/21 04:08 Fibrinogen 367 mg/dL (174-498) 08/04/21 03:44 D-Dimer 3.17 ug/mIFEU (0-0.59) H 08/05/21 03:43 Specimen Type Arterial 08/04/21 02:38 Sample Site Brachial, right 08/04/21 02:38 ABG pH 7.23 (7.35-7.45) L 08/04/21 02:38 ABG pCO2 51.7 mmHg (35-45) H 08/04/21 02:38 ABG pO2 177.0 mmHg (80.0-100.0) H 08/04/21 02:38 ABG HCO3 21.8 mmol/L (22-26) L 08/04/21 02:38 ABG O2 Saturation 50.9 08/04/21 00:40 ABG Base Excess -5.9 mmol/L (-2.0-2.0) L 08/04/21 02:38 Christiano Test Pos 08/04/21 02:38 A-a O2 Gradient 2.2 mmHg (5-10) L 08/04/21 00:40 Hematocrit 34.8 % (37-47) L 08/04/21 02:38 Hgb O2 Saturation 50.1 % (95-100) L 08/04/21 00:40 Carboxyhemoglobin 0.7 %THgb (0.4-20.1) 08/04/21 00:40 Methemoglobin 0.8 % (0.4-1.5) 08/04/21 00:40 Total Hemoglobin 11.4 g/dL (12-16) L 08/04/21 00:40 Sodium 139.0 mmol/L (131-143) 08/04/21 00:40 Potassium 4.1 mmol/L (3.5-5.0) 08/04/21 00:40 Glucose 283.0 mg/dL (70-115) H 08/04/21 00:40 Ionized Calcium 1.4 mmol/L (1.1-1.4) 08/04/21 00:40 O2 Delivery Device Bipap 08/04/21 02:38 O2 Liters/Min 4.0 % 08/04/21 00:40 FiO2 100.0 % 08/04/21 02:38 Tidal Volume 0.45 08/04/21 02:38 PEEP 12.0 cmH20 08/04/21 02:38 Pot Builder ID Miguel Angel 08/04/21 02:38 Sodium 140 mmol/L (136-145) 08/07/21 05:59 Potassium 3.3 mmol/L (3.5-5.1) L 08/07/21 05:59 Chloride 104 mmol/L (98-107) 08/07/21 05:59 Carbon Dioxide 24 mmol/L (22-29) 08/07/21 05:59 Anion Gap 15.3 (5-19) 08/07/21 05:59 BUN 13 mg/dL (8-23) 08/07/21 05:59 Creatinine 0.9 mg/dL (0.5-0.9) 08/07/21 05:59 GFR Calculation Not Reportable 08/07/21 05:59 Glucose 88 mg/dL (65-115) 08/07/21 05:59 POC Glucose 224 mg/dL (70-110) H 08/04/21 02:14 Estimat Average Glucose 134 08/03/21 04:08 Hemoglobin A1c 6.3 % (4.0-6.0) H 08/03/21 04:08 Calculated Osmolality 290 mOsm/kg (285-295) 08/07/21 05:59 Lactate 5.1 mmol/L (0.5-2.2) H* 08/04/21 00:39 Calcium 8.9 mg/dL (8.5-10.5) 08/07/21 05:59 Phosphorus 2.6 mg/dL (2.5-4.5) 08/03/21 04:08 Magnesium 2.1 mg/dL (1.7-2.3) 08/07/21 05:59 Iron 59 ug/dL (37-145) 08/03/21 04:08 TIBC 294 mcg/dl 08/03/21 04:08 % Saturation 20.0 % (20-50) 08/03/21 04:08 Unsat Iron Binding 235 ug/dL (112-347) 08/03/21 04:08 Total Bilirubin 0.3 mg/dL (0.15-1.2) 08/07/21 05:59 AST 14 U/L (0-32) 08/07/21 05:59 ALT 10 U/L (0-33) 08/07/21 05:59 Alkaline Phosphatase 56 IU/L (35-105) 08/07/21 05:59 Creatine Kinase 138 U/L (26-192) 08/05/21 03:43 Troponin T Gen 5 ng/L 76 ng/L (0-10) H 08/04/21 00:39 Troponin T Baseline 21 ng/L (0-10) H 08/02/21 17:03 Troponin T 120 Minute 21.01 ng/L (0-10) H 08/02/21 19:35 Delta Troponin T 0.01 ABS# (0-10) 08/02/21 19:35 Troponin T Hi Sens 6Hr 22.58 ng/L (0-10) H 08/02/21 23:05 Troponin T Hi Sens 6Hr Delta 1.58 ng/L (0-12) 08/02/21 23:05 NT-Pro-B Natriuret Pep 9975 pg/mL (0-450) H 08/05/21 03:43 Total Protein 6.2 g/dL (6.6-8.7) L 08/07/21 05:59 Albumin 3.2 g/dL (3.5-5.2) L 08/07/21 05:59 Globulin 3.0 g/dL (1.3-4.6) 08/07/21 05:59 Procalcitonin 0.06 ng/mL (0-0.5) 08/04/21 00:39 TSH 1.13 uIU/mL (0.27-4.20) 08/03/21 04:08 Urine Color Yellow (Yellow) 08/02/21 10:12 Urine Appearance Cloudy (CLEAR) 08/02/21 10:12 Urine pH 6.5 (5-7) 08/02/21 10:12 Ur Specific [place] 1.010 (1.005-1.030) 08/02/21 10:12 Urine Protein Neg (Negative) 08/02/21 10:12 Urine Glucose (UA) Norm (Normal) 08/02/21 10:12 Urine Ketones Negative (Negative) 08/02/21 10:12 Urine Blood Neg (Negative) 08/02/21 10:12 Urine Nitrate Negative (Negative) 08/02/21 10:12 Urine Bilirubin Neg (Negative) 08/02/21 10:12 Urine Urobilinogen Norm mg/dL (Negative) 08/02/21 10:12 Ur Leukocyte Esterase 1+ (Negative) H 08/02/21 10:12 Urine RBC 5-10 /hpf (0-2) H 08/02/21 10:12 Urine WBC 25-40 /hpf (0-5) H 08/02/21 10:12 Ur Squamous Epith Cells 25-40 /hpf (0-5) H 08/02/21 10:12 Amorphous Sediment Not Reportable 08/02/21 10:12 Urine Bacteria 1+ /hpf (NONE) H 08/02/21 10:12 Salicylates 0.6 mg/dL (3-10) L 08/02/21 09:30 Urine Opiates Screen Negative ng/mL (Negative) 08/02/21 10:12 Acetaminophen < 5.0 ug/mL (10-30) L 08/02/21 09:30 Ur Barbiturates Screen Negative ng/mL (Negative) 08/02/21 10:12 Ur Phencyclidine Scrn Negative ng/mL (Negative) 08/02/21 10:12 Ur Amphetamines Screen Negative ng/mL (Negative) 08/02/21 10:12 U Benzodiazepines Scrn Negative ng/mL (Negative) 08/02/21 10:12 Urine Cocaine Screen Negative ng/mL (Negative) 08/02/21 10:12 U Marijuana (THC) Screen Negative ng/mL (Negative) 08/02/21 10:12 Ethyl Alcohol < 10 mg/dL (0-10) 08/02/21 09:30 Coronavirus 229E (PCR) Not detected (NOT DETECT) 08/02/21 11:57 SARS-CoV-2 (PCR) Not detected (NOT DETECT) 08/02/21 11:57 Vitals Last Vital Signs Temp 98.8 F 08/07/21 08:00 Pulse 94 08/07/21 09:58 Resp 20 H 08/07/21 09:58 BP 170/61 08/07/21 08:00 Pulse Ox 93 08/07/21 09:17 Discharge Plan Discharge Patient Disposition: Home Condition: Stable Prescriptions: New levofloxacin 750 mg tablet 750 mg PO DAILY 7 Days 0RF atorvastatin 40 mg Tablet 40 mg PO BEDTIME Qty: 30 0RF Continued triamcinolone acetonide 0.1 % cream 1 applic topical BID PRN (Reason: itching) Qty: 80 0RF Rx Instructions: apply arms, neck, abdomen and legs furosemide [Lasix] 20 mg tablet 20 mg PO QAM PRN (Reason: weight gain) Qty: 30 2RF albuterol sulfate 2.5 mg /3 mL (0.083 %) solution for nebulization 2.5 mg inhalation Q4H PRN (Reason: shortness of breath or wheezing) Qty: 75 2RF aspirin [Adult Aspirin Regimen] 81 mg tablet,delayed release (DR/EC) 81 mg PO DAILY 0RF mupirocin 2 % ointment 1 applic TOPICAL TID PRN (Reason: skin irritation) Qty: 30 2RF Rx Instructions: use on skin abrasion neck, back and thigh nitroglycerin [Nitrostat] 0.4 mg tablet, sublingual 0.4 mg SUBLINGUAL Q5M PRN (Reason: chest pain) Qty: 25 2RF benzonatate 200 mg capsule 200 mg PO TID PRN (Reason: cough) Qty: 90 0RF diltiazem HCl 60 mg capsule,extended release 12 hr 60 mg PO Q12H 0RF cetirizine [Zyrtec] 10 mg tablet 10 mg PO DAILY 0RF Zofran 4 mg tablet 4 - 8 mg PO BID PRN (Reason: nausea) 0RF venlafaxine [Effexor XR] 150 mg capsule,extended release 24hr 150 mg PO BEDTIME 0RF hydroxyzine pamoate 50 mg capsule 50 mg PO BID 0RF clopidogrel 75 mg tablet 75 mg PO DAILY 0RF losartan 100 mg tablet 100 mg PO DAILY 0RF metoprolol tartrate 25 mg tablet 12.5 mg PO BID 0RF fenofibrate nanocrystallized [Tricor] 145 mg tablet 145 mg PO DAILY 0RF Trelegy Ellipta 100-62.5-25 mcg blister with device 1 inh inhalation Q24H 0RF Discharge Orders: Discharge Order (Routine); Ordered 08/07/21 Ordered By: Ellis Crain Referrals: [facility] [Provider Group] (Available 7 days a week/ 24 hours a day. Crisis Hotline. .) [facility] [Provider Group] ( . Please call them to see when you can come in to complete walk in assessment to be set up with any services you may need which will include: Med provider, Therapist, and/ or Structural [employer] Trades Worker.) Kevyn Jean FNP-C [Primary Care Provider] - 4-7 days (Please call Kevyn Jean's office on Sunday morning and set up an appointment to be seen within 7 days.) Patient Instructions: Opioid Safety Discharge Attestations Time Spent in Discharge Care*: less than 30 min Quality Metrics Clinical Quality Measures [ No reported AMI, CVA or VTE this stay] Coding Level of Care Code Acute Chg FW DC note Diagnoses Single functional kidney Z90.5 Hard of hearing H91.90 Anemia D64.9 Weakness R53.1 Nicotine dependence, cigarettes, with other nicotine-induced disorders F17.218 Lingular pneumonia J18.9 Acute hyponatremia E87.1 OA (osteoarthritis) of knee M17.10 Arteriosclerotic heart disease (ASHD) I25.10 CKD (chronic kidney disease) N18.9 Environmental and seasonal allergies J30.89 Personal history of smoking Z87.891 COPD (chronic obstructive pulmonary disease) J44.9 Essential hypertension I10 Mixed hyperlipidemia E78.2 Vitamin D deficiency E55.9 Vitamin B 12 deficiency E53.8 Anxiety with depression F41.8 Marital/partner relational problem Z63.0
--- NOTE | 2021-08-07 14:17 | PC.SOCIAL ---
IMM Update pg 2 of IMM updated and reviewed w/ patient. Copy provided and copy in chart updated.
== END 2021-08-07 15:26 | disposition home or self-care (01) | DRG 193 ==
LOC: ER 09:57 → ER IP 20:35 → MEDSURG 08-03 06:49 → ICU 08-04 00:56 → MEDSURG 08-05 22:34
PROVIDERS: Family Medicine; Internal Medicine; Admitting Provider Hospitalist; Emergency Provider Family Medicine; PCP Nurse Practitioner; Visit Provider Internal Medicine
DX: J18.9 Pneumonia, unspecified organism (principal); I63.9 Cerebral infarction, unspecified; J96.92 Respiratory failure, unspecified with hypercapnia; J44.0 Chronic obstructive pulmonary disease with (acute) lower respiratory infection; J44.1 Chronic obstructive pulmonary disease with (acute) exacerbation; R45.851 Suicidal ideations; F41.8 Other specified anxiety disorders; I25.10 Atherosclerotic heart disease of native coronary artery without angina pectoris; D64.9 Anemia, unspecified; R53.1 Weakness; R45.850 Homicidal ideations; R20.0 Anesthesia of skin; R41.82 Altered mental status, unspecified; I95.9 Hypotension, unspecified; F17.218 Nicotine dependence, cigarettes, with other nicotine-induced disorders; I12.9 Hypertensive chronic kidney disease with stage 1 through stage 4 chronic kidney disease, or unspecified chronic kidney disease; N18.9 Chronic kidney disease, unspecified; E78.2 Mixed hyperlipidemia; M79.7 Fibromyalgia; R73.9 Hyperglycemia, unspecified; H91.90 Unspecified hearing loss, unspecified ear; F03.90 Unspecified dementia, unspecified severity, without behavioral disturbance, psychotic disturbance, mood disturbance, and anxiety; Z90.5 Acquired absence of kidney; Z95.5 Presence of coronary angioplasty implant and graft; Z90.710 Acquired absence of both cervix and uterus; Z90.722 Acquired absence of ovaries, bilateral; Z79.82 Long term (current) use of aspirin; Z79.02 Long term (current) use of antithrombotics/antiplatelets; Z63.0 Problems in relationship with spouse or partner; Z73.89 Other problems related to life management difficulty
CPT/HCPCS: 36415; 36416; 70450; 71045; 71275; 80048; 80051; 80053; 80306; 80307; 81001; 82330; 82550; 82803; 82805; 82962; 83036; 83540; 83550; 83605; 83735; 83880; 84100; 84145; 84443; 84484; 85025; 85378; 85384; 85610; 85730; 86403; 87040; 87449; 87635; 87641; 92507; 92523; 92526; 92610; 93005; 93306; 93880; 94640; 94660; 94669; 96372; 97110; 97161; 97165; 97530; J1650; J1940; J1956; J2543; J2997; J7512; J7626; Q0162; Q9967

== ENCOUNTER → 2021-09-09 09:37 | Outpatient (BNVA) | payer MEDICARE, OTHER, SELFPAY | PROVIDERS: PCP Nurse Practitioner; Visit Provider Internal Medicine | DX: I25.10 Atherosclerotic heart disease of native coronary artery without angina pectoris (principal); E78.2 Mixed hyperlipidemia; I12.9 Hypertensive chronic kidney disease with stage 1 through stage 4 chronic kidney disease, or unspecified chronic kidney disease; N18.9 Chronic kidney disease, unspecified; F17.210 Nicotine dependence, cigarettes, uncomplicated | CPT/HCPCS: 99214 ==

== ENCOUNTER → 2021-09-22 10:25 | Outpatient (BNVA) | payer MEDICARE, OTHER, SELFPAY | PROVIDERS: PCP Nurse Practitioner; Visit Provider Nurse Practitioner | DX: E53.8 Deficiency of other specified B group vitamins (principal); F41.8 Other specified anxiety disorders; E55.9 Vitamin D deficiency, unspecified; D64.9 Anemia, unspecified; E78.2 Mixed hyperlipidemia; I10 Essential (primary) hypertension; J44.9 Chronic obstructive pulmonary disease, unspecified; I25.10 Atherosclerotic heart disease of native coronary artery without angina pectoris | CPT/HCPCS: 80053; 80061; 82306; 82607; 83540; 84443; 85025 ==

== ENCOUNTER 2021-10-05 09:56 | Outpatient (CLI) | payer MEDICARE, OTHER, SELFPAY ==
[2021-10-05] MEDS: iohexol 350 mg/mL 100 mL Btl IV (10:17)
--- NOTE | 2021-10-05 10:30 | CT_ITS ---
WS: [id number] CTA NECK TECHNIQUE: Contrast enhanced CTA of the neck with coronal and sagittal reformatted images and maximum intensity projection (MIP) images. NASCET criteria utilized. CLINICAL INFORMATION: rule out carotid artery stenosis COMPARISON: None. DLP: 266.[address] scans at [facility] use at least one of these dose optimization techniques: automated e xposure control; mA and/or kV adjustment per patient size (includes targeted exams where dose is matc hed to clinical indication); or iterative reconstruction. FINDINGS: RIGHT: RIGHT common carotid artery is patent. RIGHT carotid origin is partially excluded from field-o f-view. Mild to moderate calcified atheromatous plaque RIGHT proximal ICA with less than 50% stenosis . ICA is patent to the skull base. LEFT: LEFT common carotid artery is patent. Approximately 50% stenosis involving the LEFT common nobles tid artery. Dense LEFT carotid bulb calcification with proximal ICA stenosis measuring approximately 70%. LEFT ICA is patent to the skull base. Aberrant RIGHT subclavian artery with dense calcification at the origin. This appears occluded at the origin with reconstitution proximally. Additional near occlusion along the thoracic inlet. LEFT dominant vertebral artery. Both vertebral arteries are patent. 7.5 mm LEFT thyroid nodule. Mastoid air cells are well aerated. Paranasal sinuses are well aerated. Moderate cavernous carotid ca lcification. Proximal basilar artery is patent. Mild spondylitic changes cervical spine. Slight anter olisthesis C3 on C4. Disc osteophyte complexes worse at C4-C5 C5-C6 and C6-C7 with mild central canal stenosis. Lung apices are well aerated. Fibrosis in the lung apices. Normal parotid glands. Normal s ubmandibular glands. Posterior nasopharynx appears normal. Small enhancing polypoid lesion at the RIGHT tongue base extending into the vallecula measuring 9 mm. Recommend direct visualization. Neoplasm is not excluded. CT/CT angio neck [id number] IMPRESSION: 1. RIGHT proximal ICA stenosis measuring less than 50%. 2. 70% LEFT proximal ICA stenosis. 3. LEFT dominant vertebral artery. Both vertebral arteries are patent. 4. Segmental occlusion of the aberrant RIGHT subclavian artery which reconstit utes in the proximal chest at the thoracic inlet. 5. Peripherally enhancing polypoid lesion at the RIGHT tongue base extending i nto the vallecula. This is indeterminant. Neoplasm is not excluded. Recommend f urther evaluation with direct visualization. This measures approximately 9 mm. 6. Approximately 40-50% stenosis LEFT common carotid artery which remains ramirez nt. 7. Mild spondylitic changes cervical spine as described above. 8. LEFT thyroid nodule measuring 7.5 mm. This can be followed up with ultrasou nd.
== END 2021-10-05 09:57 | disposition home or self-care (01) ==
LOC: RAD 10:13
PROVIDERS: PCP Nurse Practitioner; Visit Provider Internal Medicine
DX: I65.23 Occlusion and stenosis of bilateral carotid arteries (principal); Q27.8 Other specified congenital malformations of peripheral vascular system; E04.1 Nontoxic single thyroid nodule
CPT/HCPCS: 70498

== ENCOUNTER → 2021-10-14 10:23 | Outpatient (BNVA) | payer MEDICARE, OTHER, SELFPAY | PROVIDERS: PCP Nurse Practitioner; Visit Provider Thoracic Surgery (Cardiothoracic Vascular Surgery) | DX: I65.22 Occlusion and stenosis of left carotid artery (principal); F17.210 Nicotine dependence, cigarettes, uncomplicated | CPT/HCPCS: 99203 ==

== ENCOUNTER → 2021-10-19 10:31 | Outpatient (BNVA) | payer MEDICARE, OTHER, SELFPAY | PROVIDERS: PCP Nurse Practitioner; Visit Provider Otolaryngology | DX: D37.02 Neoplasm of uncertain behavior of tongue (principal); E04.1 Nontoxic single thyroid nodule; F17.210 Nicotine dependence, cigarettes, uncomplicated | CPT/HCPCS: 99203 ==

== ENCOUNTER → 2022-01-03 09:21 | Outpatient (BNVA) | payer MEDICARE, OTHER, SELFPAY | PROVIDERS: PCP Nurse Practitioner; Visit Provider Nurse Practitioner | DX: I10 Essential (primary) hypertension (principal); E78.2 Mixed hyperlipidemia; I25.10 Atherosclerotic heart disease of native coronary artery without angina pectoris; J44.9 Chronic obstructive pulmonary disease, unspecified; F41.8 Other specified anxiety disorders; E53.8 Deficiency of other specified B group vitamins | CPT/HCPCS: 80053; 82607 ==

== ENCOUNTER 2022-02-28 11:20 | Outpatient (CLI) | payer MEDICARE, OTHER, SELFPAY ==
--- NOTE | 2022-02-28 11:15 | US_ITS ---
WS: [id number] THYROID ULTRASOUND HISTORY: left thyroid nodule COMPARISON: None available. Right lobe: 1.3 cm x 1.6 cm x 4.6 cm (w x ap x l). Volume: 4.8 cm3. Normal size gland. Small cyst, may be a colloid cyst in the lower pole measuring 3 x 3 x 4 mm. No mita id mass. No echogenic foci throughout the gland. Left lobe: 1.5 cm x 1.4 cm x 3.4 cm (w x ap x l). Volume: 3.8 cm3. Normal size gland. Isoechoic slightly lobulated nodule in the mid gland measures 1.0 x 0.9 x 1.8 cm. No echogenic foci or increased vascularity. Margins are smooth. No significant cervical chain lymph nodes. Isthmus: 0.3 cm. US/US thyroid [id number] IMPRESSION: Ti-RADS 3; recommend follow-up ultrasound in one, 3 and 5 years to evaluate the nodule in the mid LEFT thyroid.
== END 2022-02-28 11:21 | disposition home or self-care (01) ==
LOC: RAD 11:21
PROVIDERS: PCP Nurse Practitioner; Visit Provider Otolaryngology
DX: E04.1 Nontoxic single thyroid nodule (principal)
CPT/HCPCS: 76536

== ENCOUNTER → 2022-03-21 10:46 | Outpatient (BNVA) | payer MEDICARE, OTHER, SELFPAY | PROVIDERS: PCP Nurse Practitioner; Visit Provider Nurse Practitioner | DX: I10 Essential (primary) hypertension (principal); E78.2 Mixed hyperlipidemia; I25.10 Atherosclerotic heart disease of native coronary artery without angina pectoris; J44.9 Chronic obstructive pulmonary disease, unspecified; F41.8 Other specified anxiety disorders; E53.8 Deficiency of other specified B group vitamins; E55.9 Vitamin D deficiency, unspecified; E04.1 Nontoxic single thyroid nodule; I65.22 Occlusion and stenosis of left carotid artery; J30.89 Other allergic rhinitis | CPT/HCPCS: 80053; 80061; 81000; 82306; 82607; 84443; 85025 ==

== ENCOUNTER → 2022-03-22 10:59 | Outpatient (BNVA) | payer MEDICARE, OTHER, SELFPAY | PROVIDERS: PCP Nurse Practitioner; Visit Provider Nurse Practitioner Family | DX: I25.10 Atherosclerotic heart disease of native coronary artery without angina pectoris (principal); I12.9 Hypertensive chronic kidney disease with stage 1 through stage 4 chronic kidney disease, or unspecified chronic kidney disease; F17.210 Nicotine dependence, cigarettes, uncomplicated; N18.9 Chronic kidney disease, unspecified | CPT/HCPCS: 99214 ==

== ENCOUNTER 2022-04-06 10:36 | Outpatient (CLI) | payer MEDICARE, OTHER, SELFPAY ==
--- NOTE | 2022-04-06 11:12 | MM_ITS ---
WS: [id number] BILATERAL DIGITAL BREAST TOMOSYNTHESIS MAMMOGRAPHY WITH CAD HISTORY: Screening. COMPARISON: 08/16/2018 TECHNIQUE: Bilateral craniocaudad, mediolateral oblique, and mediolateral views are submitted with to mossandro and SM. Computer aided detection utilized. Breast composition: There are scattered areas of fibroglandular density. Prior biopsy central RIGHT b reast. There is a biopsy clip present. There are no suspicious or new calcifications. No mass or dist ortion. MM/[place] [id number] IMPRESSION: BI-RADS: 2-Benign FOLLOW UP: 1 Year Follow-up
== END 2022-04-06 10:37 | disposition home or self-care (01) ==
LOC: RAD 10:37
PROVIDERS: PCP Nurse Practitioner; Visit Provider Nurse Practitioner
DX: Z12.31 Encounter for screening mammogram for malignant neoplasm of breast (principal)
CPT/HCPCS: 77063; 77067

== ENCOUNTER → 2022-04-24 11:21 | Outpatient (BNVA) | payer MEDICARE, OTHER, SELFPAY | PROVIDERS: PCP Nurse Practitioner; Visit Provider Nurse Practitioner | DX: R10.30 Lower abdominal pain, unspecified (principal); N39.0 Urinary tract infection, site not specified; I25.10 Atherosclerotic heart disease of native coronary artery without angina pectoris; E53.8 Deficiency of other specified B group vitamins; J44.9 Chronic obstructive pulmonary disease, unspecified; I10 Essential (primary) hypertension; F41.8 Other specified anxiety disorders; J30.89 Other allergic rhinitis; E78.2 Mixed hyperlipidemia; R44.0 Auditory hallucinations | CPT/HCPCS: 71046; 81000; 85025; 87077; 87086; 87184 ==

== ENCOUNTER → 2022-06-13 10:28 | Outpatient (BNVA) | payer MEDICARE, OTHER, SELFPAY | PROVIDERS: PCP Nurse Practitioner; Visit Provider Nurse Practitioner | DX: I10 Essential (primary) hypertension (principal); E55.9 Vitamin D deficiency, unspecified | CPT/HCPCS: 80053; 80061; 82306; 82607; 84443; 85025 ==

== ENCOUNTER 2022-08-11 12:58 | Outpatient (CLI) | payer MEDICARE, OTHER, SELFPAY ==
--- NOTE | 2022-08-11 13:05 | CT_ITS ---
WS: [email or web address] CTA NECK TECHNIQUE: Contrast enhanced CTA of the neck with coronal and sagittal reformatted images and maximum intensity projection (MIP) images. NASCET criteria utilized. CLINICAL INFORMATION: OCCLUSION STENOSIS OF L CAROTID ARTERY COMPARISON: CTA October 05, 2021 DLP: 305.[address] scans at [facility] use at least one of these dose optimization techniques: automated e xposure control; mA and/or kV adjustment per patient size (includes targeted exams where dose is matc hed to clinical indication); or iterative reconstruction. FINDINGS: RIGHT: RIGHT common carotid artery is patent. Mild to moderate calcified atheromatous plaque RIGHT pr oximal ICA with less than 50% stenosis. ICA is patent to the skull base. Retropharyngeal course to th e RIGHT cervical ICA. LEFT: LEFT common carotid artery is patent. Approximately 50% stenosis involving the LEFT common nobles tid artery. Dense LEFT carotid bulb calcification with proximal ICA stenosis measuring approximately 62%. LEFT ICA is patent to the skull base. Retropharyngeal course of the LEFT cervical ICA. Severe stenosis with segmental occlusion of the LEFT vertebral artery origin and proximal LEFT verteb ral artery which reconstitutes at the C5 level. Stenosis is slightly progressed compared to previous This is patent to the skull base. Smaller but patent RIGHT vertebral artery.Stable 7.5 mm LEFT thyroi d nodule. Mastoid air cells are well aerated. Paranasal sinuses are well aerated. Moderate cavernous carotid calcification. Proximal basilar artery is patent. Moderate spondylitic changes cervical spine unchanged. Lung apices are well aerated. Fibrosis in the lung apices. Normal parotid glands. Normal submandibular glands. Posterior nasopharynx appears normal . Stable peripherally enhancing 9 mm polypoid lesion at the RIGHT tongue base extending into the vallec mariya. Recommend direct visualization. Neoplasm not excluded. IMPRESSION 1. RIGHT proximal ICA stenosis less than 50%. 2. 62% LEFT proximal ICA stenosis not significantly changed 3. Severe stenosis with segmental occlusion of the LEFT vertebral artery origin and proximal LEFT ve rtebral artery which reconstitutes at the C5 level. This is patent to the skull base. Smaller but pat ent RIGHT vertebral artery. 4. High-grade segmental stenosis of the aberrant RIGHT subclavian artery is unchanged. This reconsti tutes the proximal chest at the thoracic inlet. 5. 40-50% stenosis LEFT common carotid artery is unchanged. 6. Stable peripherally enhancing 9 mm polypoid lesion at the RIGHT tongue base extending into the va llecula. Recommend direct visualization. Neoplasm not excluded.
--- NOTE | 2022-08-11 13:45 | USCV_ITS ---
Zoila Rosario Age: 77 Gender: F : 1945 Exam Date: 08/11/2022 14:30 Ordering Phys: Kevyn Jean Technologist: Exam Location: [facility] Indication: pad leg pain Risk Factors: Previous Vascular Surgery: RIGHT LEFT BP: 135.0 / 85.00 BP: 135.0/ 85.00 0 0 Waveform Velocity (cm/s) Velocity (cm/s) Waveform Biphasic 124.6 Iliac Prox 88.2 Biphasic Biphasic 91.5 Iliac Mid 94.0 Biphasic Biphasic 104.8 Iliac Distal 102.0 Biphasic Biphasic 100.9 SDC TEACHER 115.7 Biphasic Biphasic 115.3 SFA Prox 105.4 Biphasic Biphasic 108.6 SFA Mid 118.0 Biphasic Biphasic SFA Dist Biphasic 113.4 105.4 Biphasic 57.7 POP 57.4 Biphasic Biphasic 43.0 HEALTH RECORDS TECHNOLOGY TEACHER 58.1 Biphasic Biphasic 34.3 DPA 51.4 Biphasic 1.1 MOISÉS 1.1 FINDINGS Minimal plaque in the iliac and femoral arteries bilaterally Resting MOISÉS of 1.1 bilaterally Normal Doppler flow velocities CONCLUSIONS 1. Mild diffuse plaques in the iliac and femoral arteries bilaterally. 2. No significant arterial obstruction based on the above findings. Dr Yeimi Alvarado MD [facility] (Electronically Signed) Final Date: 12 August 2022 19:16 S
[2022-08-11 14:10] LABS: Blood Urea Nitrogen 16 mg/dL (8-23)
[2022-08-11] MEDS: iohexol 350 mg/mL 500 mL Btl (per mL) IV (14:14)
== END 2022-08-11 12:59 | disposition home or self-care (01) ==
LOC: RAD 12:58
PROVIDERS: PCP Nurse Practitioner; Visit Provider Nurse Practitioner
DX: I25.10 Atherosclerotic heart disease of native coronary artery without angina pectoris (principal); F17.200 Nicotine dependence, unspecified, uncomplicated; I65.22 Occlusion and stenosis of left carotid artery; M79.604 Pain in right leg; M79.605 Pain in left leg
CPT/HCPCS: 70498; 80053; 80061; 82306; 82565; 82607; 84443; 84520; 85025; 93925; Q9967

== ENCOUNTER → 2022-10-10 16:25 | Outpatient (BNVA) | payer MEDICARE, OTHER, SELFPAY | PROVIDERS: PCP Nurse Practitioner; Visit Provider Nurse Practitioner | DX: D37.02 Neoplasm of uncertain behavior of tongue (principal); D64.9 Anemia, unspecified | CPT/HCPCS: 80053; 85025 ==

== ENCOUNTER 2022-11-02 07:22 | Outpatient (CLI) | payer MEDICARE, OTHER, SELFPAY ==
[2022-11-02] MEDS: iohexol 350 mg/mL 500 mL Btl (per mL) IV (08:10)
[2022-11-02] MEDS: iohexol 350 mg/mL 500 mL Btl (per mL) PO (08:11)
--- NOTE | 2022-11-02 09:00 | CT_ITS ---
WS: [id number] CT CHEST, ABDOMEN AND PELVIS WITH CONTRAST. 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 Coronal and sagittal reformats chest. Coronal and sagittal ref ormats through the abdomen and pelvis. All CT scans at [facility] use at least one of these d ose optimization techniques: automated exposure control; mA and/or kV adjustment per patient size (in cludes targeted exams where dose is matched to clinical indication); or iterative reconstruction. CONTRAST: Omnipaque 350; 75 mL IV. DLP: 730.20 mGy.cm COMPARISON: 08/05/2021, 08/24/[address]: Significant improvement in the overall opacifications described throughout the lungs on 07/26. No residual pneumonitis. No pulmonary mass or nodule. No pneumonia. No mediastinal or hilar a denopathy. No pleural or pericardial effusions. Moderate enlargement of the LEFT heart chambers. Extensive atherosclerotic plaque within the aorta. Greater plaque distribution along the medial aorti c arch. Patient has a known aberrant RIGHT subclavian artery. Portion of the RIGHT subclavian artery extending posterior to the esophagus is heavily calcified and could be occluded. Very similar finding s were noted on the prior study of 2016. Subcentimeter LEFT thyroid nodule. Small hiatal hernia. Increase in thoracic kyphosis. Degenerative disc space narrowing throughout. Mild anterior wedging of T9 and T12. Abdomen CT: Stable too small to characterize hypodensity LEFT lobe of the liver. Stable since 2017. N ormal portal vein. Negative gallbladder. Normal common bile duct. Normal pancreas and spleen. Mild th ickening of the adrenal glands with no mass. Prior LEFT nephrectomy. No recurrent mass at the renal b ed. Normal size RIGHT kidney. Cortical cyst lower pole measures 7 mm. No solid mass or renal obstruct ion. There is a nonobstructing 2 mm calcification in the central kidney. Mild scattered atherosclerot ic plaque within the aorta. No aneurysm. Stomach is distended with oral contrast. No small bowel obstruction. The appendix is not definitely i dentified but there are no secondary findings of appendicitis. Tortuous overlapping loops of colon. N umerous diverticula in the descending and sigmoid colon without acute diverticulitis. No obstruction. Pelvic CT: Prior hysterectomy. No pelvic masses. No free fluid. Extensive calcifications continue int o the iliac arteries. Multilevel vacuum disc phenomenon within the lumbar vertebral bodies. No destructive bone lesions are identified. Degenerative changes at the hips. CT/CT chest abdpel w/*[id number] IMPRESSION: 1. Interval resolution of the pneumonitis described on 08/05/2021. 2. Heavy calcification within the known aberrant RIGHT subclavian artery. Stab le since 2016. 3. Known mediastinal, mesenteric or retroperitoneal adenopathy. 4. Prior LEFT nephrectomy. 5. Prior hysterectomy. 6. Cortical cyst lower pole RIGHT kidney, 7 mm. 7. Distal colonic diverticula without acute diverticulitis.
[2022-11-02 09:12] LABS: Blood Urea Nitrogen 14 mg/dL (8-23)
== END 2022-11-02 07:23 | disposition home or self-care (01) ==
LOC: RAD 07:30
PROVIDERS: PCP Nurse Practitioner; Visit Provider Nurse Practitioner
DX: D37.02 Neoplasm of uncertain behavior of tongue (principal); J44.9 Chronic obstructive pulmonary disease, unspecified; Z90.5 Acquired absence of kidney; Z90.710 Acquired absence of both cervix and uterus; N28.1 Cyst of kidney, acquired; K57.30 Diverticulosis of large intestine without perforation or abscess without bleeding
CPT/HCPCS: 71260; 74177; 82565; 84520; Q9967

== ENCOUNTER 2022-11-03 09:47 | Outpatient (CLI) | payer MEDICARE, OTHER, SELFPAY ==
--- NOTE | 2022-11-03 10:00 | CT_ITS ---
WS: [email or web address] CT NECK TECHNIQUE: Contrast-enhanced CT of the neck with coronal and sagittal reformatted images. 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 FINDINGS:5. Vallecula are effaced today. Persistent polypoid lesion or cystic lesion RIGHT vallecula measuring 8 mm. Recommend direct visualization. Neoplasm not excluded. Densely calcified aberrant RIGHT subclavian artery with severe stenosis. A few small LEFT thyroid nod ules. Lung apices are well aerated. Mastoid air cells well aerated. Paranasal sinuses are well aerated. Vascular calcification. Normal po sterior nasopharynx. Carotid bulb calcification. Retropharyngeal course to the cervical ICAs. Normal parapharyngeal fat. Submandibular glands are normal. Parotid glands are normal. No cervical lymphaden opathy. Moderate spondylitic changes cervical spine. Slight anterolisthesis C3 on C4. Vascular calcif ication. CT/CT neck w con* [id number] IMPRESSION: 1. Stable peripherally enhancing 8 mm low-attenuation lesion RIGHT vallecula. Recommend direct visualization. 2. No cervical lymphadenopathy. 3. Densely calcified aberrant RIGHT subclavian artery with severe stenosis. 4. Retropharyngeal course to both cervical ICAs. 5. Salivary glands are normal.
[2022-11-03] MEDS: iohexol 350 mg/mL 500 mL Btl (per mL) IV (10:13)
== END 2022-11-03 09:48 | disposition home or self-care (01) ==
PROVIDERS: PCP Nurse Practitioner; Visit Provider Nurse Practitioner
DX: D37.02 Neoplasm of uncertain behavior of tongue (principal); I77.1 Stricture of artery
CPT/HCPCS: 70491; Q9967

== ENCOUNTER → 2023-03-13 16:24 | Outpatient (BNVA) | payer MEDICARE, OTHER, SELFPAY | PROVIDERS: PCP Nurse Practitioner; Visit Provider Nurse Practitioner | DX: J44.9 Chronic obstructive pulmonary disease, unspecified (principal); I25.10 Atherosclerotic heart disease of native coronary artery without angina pectoris; E53.8 Deficiency of other specified B group vitamins; F41.8 Other specified anxiety disorders; L30.9 Dermatitis, unspecified; J30.89 Other allergic rhinitis; I10 Essential (primary) hypertension; E78.2 Mixed hyperlipidemia; L57.8 Other skin changes due to chronic exposure to nonionizing radiation; E04.1 Nontoxic single thyroid nodule; E55.9 Vitamin D deficiency, unspecified; N39.0 Urinary tract infection, site not specified | CPT/HCPCS: 80053; 80061; 81000; 82306; 82607; 84443 ==

== ENCOUNTER → 2023-03-14 09:27 | Outpatient (BNVA) | payer MEDICARE, OTHER, SELFPAY | PROVIDERS: PCP Nurse Practitioner; Visit Provider Nurse Practitioner | DX: I10 Essential (primary) hypertension; E04.1 Nontoxic single thyroid nodule; E55.9 Vitamin D deficiency, unspecified; N39.0 Urinary tract infection, site not specified | CPT/HCPCS: 87077; 87086; 87184 ==

== ENCOUNTER 2023-03-30 11:05 | Outpatient (CLI) | payer MEDICARE, OTHER, SELFPAY ==
--- NOTE | 2023-03-30 11:15 | US_ITS ---
WS: [email or web address] ULTRASOUND THYROID TECHNIQUE: Ultrasound of the thyroid. CLINICAL INFORMATION: E04.1 - Nontoxic single thyroid nodule COMPARISON: Ultrasound 02/28/2022 FINDINGS: Thyroid: Right and left thyroid lobes are normal in size and echotexture. Right thyroid lobe: 3.3 cm x 1.1 cm x 1.5 cm Incidental tiny RIGHT colloid cyst. Left thyroid lobe: 3.8 cm x 1.4 cm x 1.4 cm. LEFT isoechoic thyroid nodule mid gland measuring 1.9 x 1.0 x 1.1 cm unchanged compared to previous. Isthmus: 0.3 mm. Cervical lymphadenopathy: None. Carotid bulb calcification. IMPRESSION: LEFT isoechoic thyroid nodule measuring 1.9 x 1.0 x 1.1 cm unchanged compared to 2022. Ti-RADS 3; recommend follow-up ultrasound in one, 3 and 5 years to evaluate the nodule in the mid LEF T thyroid.
== END 2023-03-30 11:06 | disposition home or self-care (01) ==
PROVIDERS: PCP Nurse Practitioner; Visit Provider Nurse Practitioner
DX: E04.1 Nontoxic single thyroid nodule (principal)
CPT/HCPCS: 76536

== ENCOUNTER → 2023-04-11 11:45 | Outpatient (BNVA) | payer MEDICARE, OTHER, SELFPAY | PROVIDERS: PCP Nurse Practitioner; Visit Provider Nurse Practitioner | DX: N39.0 Urinary tract infection, site not specified (principal); K59.00 Constipation, unspecified | CPT/HCPCS: 74018; 81000; 85025; 87077; 87086; 87184 ==

== ENCOUNTER 2023-04-27 09:25 | Outpatient (CLI) | payer MEDICARE, OTHER, SELFPAY ==
--- NOTE | 2023-04-27 09:30 | MM_ITS ---
WS: [email or web address] BILATERAL SCREENING DIGITAL TOMOSYNTHESIS MAMMOGRAM WITH CAD HISTORY: SCREENING COMPARISON: 04/06/2022, 02/03/2020, 01/12/2020 Bilateral CC and MLO views with tomosynthesis and synthetic mammography submitted. Computer aided det ection analyzed. Breast composition: There are scattered areas of fibroglandular density. No suspicious masses, microc alcifications or architectural distortion. Post biopsy clip in the central RIGHT breast. No suspiciou s masses or calcifications on today's exam. IMPRESSION: MM/[place] [id number] BI-RADS: 2-Benign FOLLOW UP: 1 Year Follow-up
== END 2023-04-27 09:26 | disposition home or self-care (01) ==
LOC: MOBLMAM 09:29
PROVIDERS: PCP Nurse Practitioner; Visit Provider Nurse Practitioner
DX: Z12.31 Encounter for screening mammogram for malignant neoplasm of breast (principal)
CPT/HCPCS: 77063; 77067

== ENCOUNTER → 2023-06-12 11:47 | Outpatient (BNVA) | payer MEDICARE, OTHER, SELFPAY | PROVIDERS: PCP Nurse Practitioner; Visit Provider Nurse Practitioner | DX: N18.9 Chronic kidney disease, unspecified (principal); I10 Essential (primary) hypertension; E53.8 Deficiency of other specified B group vitamins; E55.9 Vitamin D deficiency, unspecified; J44.9 Chronic obstructive pulmonary disease, unspecified; I25.10 Atherosclerotic heart disease of native coronary artery without angina pectoris; F41.8 Other specified anxiety disorders; E78.2 Mixed hyperlipidemia; J30.89 Other allergic rhinitis; Z23 Encounter for immunization | CPT/HCPCS: 80053; 81000; 82306; 84443; 85025 ==

== ENCOUNTER → 2024-01-01 10:14 | Outpatient (BNVA) | payer MEDICARE, OTHER, SELFPAY | PROVIDERS: PCP Nurse Practitioner; Visit Provider Nurse Practitioner | DX: I10 Essential (primary) hypertension (principal); E53.8 Deficiency of other specified B group vitamins; E55.9 Vitamin D deficiency, unspecified; D64.9 Anemia, unspecified | CPT/HCPCS: 80053; 80061; 82306; 82607; 84443; 85025 ==

== ENCOUNTER → 2024-03-17 10:43 | Outpatient (BNVA) | payer MEDICARE, OTHER, SELFPAY | PROVIDERS: PCP Nurse Practitioner; Visit Provider Nurse Practitioner | DX: I10 Essential (primary) hypertension (principal); E78.2 Mixed hyperlipidemia; E04.1 Nontoxic single thyroid nodule | CPT/HCPCS: 81000; 82306; 84439; 84443; 84481; 85025; 87086 ==

== ENCOUNTER → 2024-07-22 10:14 | Outpatient (BNVA) | payer MEDICARE, OTHER, SELFPAY | PROVIDERS: PCP Nurse Practitioner; Visit Provider Nurse Practitioner | DX: I10 Essential (primary) hypertension (principal); E78.2 Mixed hyperlipidemia; E53.8 Deficiency of other specified B group vitamins; Z12.11 Encounter for screening for malignant neoplasm of colon | CPT/HCPCS: 80053; 80061; 82607; 85025 ==

== ENCOUNTER → 2024-10-13 10:06 | Outpatient (BNVA) | payer MEDICARE, OTHER, SELFPAY | PROVIDERS: PCP Nurse Practitioner; Visit Provider Nurse Practitioner | DX: J44.9 Chronic obstructive pulmonary disease, unspecified (principal); I10 Essential (primary) hypertension; I25.10 Atherosclerotic heart disease of native coronary artery without angina pectoris; E53.8 Deficiency of other specified B group vitamins; F41.8 Other specified anxiety disorders; L30.9 Dermatitis, unspecified; J30.89 Other allergic rhinitis; S80.811A Abrasion, right lower leg, initial encounter; E78.2 Mixed hyperlipidemia; N39.0 Urinary tract infection, site not specified | CPT/HCPCS: 80053; 81000; 82607; 87077; 87086; 87184 ==

== ENCOUNTER → 2024-10-30 12:10 | Outpatient (BNVA) | payer MEDICARE, OTHER, SELFPAY | PROVIDERS: PCP Nurse Practitioner; Visit Provider Nurse Practitioner | DX: N39.0 Urinary tract infection, site not specified (principal) | CPT/HCPCS: 81000 ==

== ENCOUNTER → 2025-01-26 09:30 | Outpatient (BNVA) | payer MEDICARE, OTHER, SELFPAY | PROVIDERS: PCP Nurse Practitioner; Visit Provider Nurse Practitioner | DX: M54.9 Dorsalgia, unspecified (principal); M51.360 Other intervertebral disc degeneration, lumbar region with discogenic back pain only | CPT/HCPCS: 72072; 72100 ==

== ENCOUNTER 2025-02-05 14:54 | Outpatient (CLI) | payer MEDICARE, OTHER, SELFPAY ==
--- NOTE | 2025-02-05 14:00 | MM_ITS ---
WS: [email or web address] BILATERAL SCREENING DIGITAL TOMOSYNTHESIS MAMMOGRAM WITH CAD HISTORY: Z12.31 - Encounter for screening mammogram for malignant ... COMPARISON: 04/27/2023, 04/06/2022 Bilateral CC and MLO views with tomosynthesis and synthetic mammography submitted. Computer aided detection analyzed. Breast composition: There are scattered areas of fibroglandular density. No suspicious masses, microcalcifications or architectural distortion. Benign calcifications RIGHT breast. Biopsy clip mid depth RIGHT breast. MM/MM scr BI tomosynthesis [id number] IMPRESSION: BI-RADS: 2 - Benign. FOLLOW UP: 1 Year Follow-up
== END 2025-02-05 14:55 | disposition home or self-care (01) ==
LOC: MOBLMAM 14:55
PROVIDERS: PCP Nurse Practitioner; Visit Provider Nurse Practitioner
DX: Z12.31 Encounter for screening mammogram for malignant neoplasm of breast (principal); R92.323 Mammographic fibroglandular density, bilateral breasts; R92.1 Mammographic calcification found on diagnostic imaging of breast; Z97.8 Presence of other specified devices
CPT/HCPCS: 77063; 77067

== ENCOUNTER → 2025-04-06 10:16 | Outpatient (BNVA) | payer MEDICARE, OTHER, SELFPAY | PROVIDERS: PCP Nurse Practitioner; Visit Provider Nurse Practitioner | DX: E55.9 Vitamin D deficiency, unspecified (principal); I10 Essential (primary) hypertension; E78.2 Mixed hyperlipidemia; E04.1 Nontoxic single thyroid nodule; E53.8 Deficiency of other specified B group vitamins; N39.0 Urinary tract infection, site not specified | CPT/HCPCS: 80053; 80061; 81000; 82306; 82607; 84443; 85025; 87086 ==

== ENCOUNTER 2025-04-17 13:00 | Outpatient (CLI) | payer MEDICARE, OTHER, SELFPAY ==
--- NOTE | 2025-04-17 13:30 | USR_ITS ---
PROCEDURE INFORMATION: Exam: US Soft Tissue Head and Neck, TI-RADS Exam date and time: 04/17/2025 1:24 PM Age: 80 years old Clinical indication: Condition or disease; Thyroid disorder; Other: Nontoxic single thyroid nodule; Additional info: E04.1 - nontoxic single thyroid nodule TECHNIQUE: Imaging protocol: Real-time ultrasound scan of the neck with image documentation. Exam focused on the thyroid. COMPARISON: [place] thyroid [id number] 03/30/2023 11:20 AM FINDINGS: Right thyroid lobe: Not enlarged. Right thyroid lobe measures 1.1 x 1.5 x 4.4 cm (3.5 mL). Left thyroid lobe: Not enlarged. Left thyroid lobe measures 1.4 x 1.9 x 3.9 cm (5.1 mL). Isthmus: Not thickened. LESION 1: Thyroid nodule 1 Size: 1.1 x 1.1 x 1.7 cm Thyroid nodule 1 Location: Mid left thyroid Thyroid nodule 1 Composition: Solid Thyroid nodule 1 Echogenicity: Isoechoic Thyroid nodule 1 Shape: Taller than wide Thyroid nodule 1 Margins: Smooth Thyroid nodule 1 Echogenic foci: None Thyroid nodule 1 Points: 6 Lymph nodes: No enlarged nodes. US/US thyroid [id number] IMPRESSION: 1.7 cm left thyroid nodule as above. TI-RADS category TR4, Moderately Suspicious. Fine needle aspiration is recommended. (Reference: Sahra) REFERENCES: Sahra FN, Josette HARMAN, Alvino ALFARO et al. ACR Thyroid Imaging, Reporting and Data System (TI-RADS): White Paper of the ACR TI-RADS Committee. J Am Anthony Radiol. 2017; 14: 587-595.
== END 2025-04-17 13:01 | disposition home or self-care (01) ==
LOC: RAD 13:03
PROVIDERS: PCP Nurse Practitioner; Visit Provider Nurse Practitioner
DX: E04.1 Nontoxic single thyroid nodule (principal)
CPT/HCPCS: 76536

== ENCOUNTER → 2025-04-23 15:29 | Outpatient (BNVA) | payer MEDICARE, OTHER, SELFPAY | PROVIDERS: PCP Nurse Practitioner; Visit Provider Nurse Practitioner | DX: I10 Essential (primary) hypertension (principal) | CPT/HCPCS: 81000 ==

== ENCOUNTER 2025-05-27 11:30 | Outpatient (CLI) | payer MEDICARE, OTHER, SELFPAY ==
--- NOTE | 2025-05-27 11:45 | US_ITS ---
WS: [email or web address] Limited thyroid ultrasound. HISTORY: Patient presents for possible biopsy of the nodule in the LEFT thyroid. During scanning of the patient prior to biopsy no safe pathway is identified. Vessels are noted in the neck over the thyroid obscuring the pathway of the needle. US/US biopsy/FNA thyroid [id number] IMPRESSION: No thyroid biopsy performed as no safe pathway is identified. Pathway of the ne edle is obscured by overlying vessels. Consider surgical removal of this thyroi d nodule.
== END 2025-05-27 11:31 | disposition home or self-care (01) ==
LOC: RAD 11:31
PROVIDERS: PCP Nurse Practitioner; Visit Provider Nurse Practitioner
DX: E04.1 Nontoxic single thyroid nodule (principal)
CPT/HCPCS: 10005

== ENCOUNTER 2025-06-20 16:35 | Emergency (ER) | payer MEDICARE, OTHER, SELFPAY ==
[2025-06-20 16:40] VITALS: BP 165/72; PULSE 87; RESP 24; TEMP 36.9; O2SAT 93
--- OUTSIDE RECORDS SUMMARY | 2025-06-20 16:44 | XMS_ITS | Clinical Summary ---
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
--- OUTSIDE RECORDS SUMMARY | 2025-06-20 16:44 | XMS_ITS | Encounter Summary ---
Author Organization [facility] Address [address] [place] [address] Care Team Providers Care Crate Maker Name Role Phone Unavailable Primary Care Provider Unavailabl e Encounter Details Date Type Department Care Team (Late st Contact Info) Description 02/16/2006 Emergency [facility] Emergency Department [address] 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 Gender Identity Not on file Sexual Orientation Not on file documented as of this encounter Plan of Treatment Not on file documented as of this encounter Procedures Procedure Name Priority Date/Time Associated Diagnosis Comments XR TIBIA AND FIBULA 2 VW LEFT Routine 02/16/2006 12:47 PM CDT XR LUMBAR SPINE 2 OR 3 VW Routine 02/16/2006 12:47 PM CDT documented in this encounter Results * XR TIBIA AND FIBULA 2 VW LEFT (02/16/2006 12:47 PM CDT) Anatomical Region Laterality Modality Lower Extremity Other 02/16/2006 12:4 7 PM CDT Narrative 02/16/2006 12:47 PM CDT Left Tibia And Fibula: 02/16/2006 At 1340Comparisons: None. Clinical History: Pain and injury. Findings: There is no evidence for fracture or dislocation. Proximal and distal joint spaces appearwithin limits. Soft tissues are radiographically unremarkable. Impression: Unremarkable examination of the left tibia and left fibula. - Dictated By: Joaquin Patterson M.D., Ph.D. Electronically Signed By: Joaquin Patterson M.D., Ph.D. Date Signed: 02/16/06 Procedure Note Provider, Historical - 05/13/2009 Left Tibia And Fibula: 02/16/2006 At 1340Comparisons: None. Clinical History: Pain and injury. Findings: There is no evidence for fracture or dislocation. Proximal and distaljoint spaces appearwithin limits. Soft tissues are radiographically unremarkable. Impression: Unremarkable examination of the left tibia and left fibula. - Dictated By: Joaquin Patterson M.D., Ph.D. Electronically Signed By: Joaquin Patterson M.D., Ph.D. Date Signed: 02/16/06 us Jose Alejandro Anaya MD DIAGNOSTIC IMAGING ORDERABLE S Final Result * XR LUMBAR SPINE 2 OR 3 VW (02/16/2006 12:47 PM CDT) Anatomical Region Laterality Modality Spine Other 02/16/2006 12:4 7 PM CDT Narrative 02/16/2006 12:47 PM CDT Lumbar Spine 02/16/2006 at 1340. Clinical History: Injury. Leg pain. Comparisons: None. Findings: Mild grade I retrolisthesis of L4 on L5 and L5 on S1 is noted with moderate disc spacenarrowing at L4-L5 and L5-S1 disc levels. The remaining intervertebral disc heights appear withinnormal limits. Facets are unremarkable. Pedicles appear within normal limits. Impressions: 1. Mild grade I retrolisthesis of L4 on 5 and L5 on S1 with moderate disc space narrowing. - Dictated By: Joaquin Patterson M.D., Ph.D. Electronically Signed By: Joaquin Patterson M.D., Ph.D. Date Signed: 02/16/06 AMA Procedure Note Provider, Historical - 05/13/2009 Lumbar Spine 02/16/2006 at 1340. Clinical History: Injury. Leg pain. Comparisons: None. Findings: Mild grade I retrolisthesis of L4 on L5 and L5 on S1 is noted withmoderate disc spacenarrowing at L4-L5 and L5-S1 disc levels. The remaining intervertebral disc heights appearwithinnormal limits. Facets are unremarkable. Pedicles appear within normal limits. Impressions: 1. Mild grade I retrolisthesis of L4 on 5 and L5 on S1 with moderate discspace narrowing. - Dictated By: Joaquin Patterson M.D., Ph.D. Electronically Signed By: Joaquin Patterson M.D., Ph.D. Date Signed: 02/16/06 AMA us Jose Alejandro Anaya MD DIAGNOSTIC IMAGING ORDERABLE S Final Result documented in this encounter Visit Diagnoses Diagnosis Contusion of knee- Primary documented in this encounter
--- OUTSIDE RECORDS SUMMARY | 2025-06-20 16:44 | XMS_ITS | Clinical Summary ---
Author Organization [facility] Address [address] Attn: [place] [address] Care Team Providers Care Sports Centre Manager Name Role Phone Unavailable Primary Care Provider Unavailabl e Encounters Date Type Department Care Team Description 06/04/2025 Abstract [facility] [address] [place] [phone] Provider, Abstract from Last 3 Months Social History Tobacco Use Types Packs/Day Years Used Date Smoking Tobacco: Never Assessed Comments Unknown Sex and Gender Information Value Date Recorded Sex Assigned at Not on file 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
--- NOTE | 2025-06-20 16:46 | XRR_ITS ---
PROCEDURE INFORMATION: Exam: XR Left Hip Exam date and time: 06/20/2025 5:51 PM Age: 80 years old Clinical indication: Injury or trauma; Blunt trauma (contusions or hematomas); Left; Hip; Injury details: Fall from standing position TECHNIQUE: Imaging protocol: Radiologic exam of the left hip. 3 image(s) are submitted. Views: 2 or 3 views hip with pelvis when performed. 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 Soft tissues: Unremarkable. 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
--- NOTE | 2025-06-20 17:00 | XRR_ITS ---
PROCEDURE INFORMATION: Exam: XR Chest Exam date and time: 06/20/2025 5:47 PM Age: 80 years old Clinical indication: Cough; Prior surgery; Surgery date: 6+ months; Surgery type: Coronary stent, right breast biopsy TECHNIQUE: Imaging protocol: Radiologic exam of the chest. 258 image(s) are submitted. Views: 1 view. COMPARISON: CT chest abdpel w/*[id number] 11/02/2022 9:10 AM FINDINGS: Lungs: 10 cm left mid to lower lung pulmonary infiltrate, new since prior study, consistent with pneumonia in the correct clinical setting. Pleural spaces: Unremarkable. No pleural effusion. No pneumothorax. Heart/Mediastinum: Unremarkable. No cardiomegaly. Bones/joints: Unremarkable. XR/XR chest 1V portable [id number] IMPRESSION: 10 cm left mid to lower lung pulmonary infiltrate, new since prior study, consistent with pneumonia in the correct clinical setting.
[2025-06-20 17:51] LABS: Hematocrit 35.7 % (36-47); Hemoglobin 11.80 g/dL (11.27-16.99); Mean Corpuscular HGB Conc 33.1 g/dL (30-55); Mean Corpuscular Hemoglobin 28.1 pg (27-33); Mean Corpuscular Volume 85.0 fl (85-98); Nucleated Red Blood Cells % 0 %; Platelet Count 290 10^3/cmm (157-399); Red Blood Count 4.20 10^6/uL (3.85-5.65); White Blood Count 8.49 10^3/uL (3.29-11.43)
[2025-06-20 18:08] LABS: Alanine Aminotransferase 39 U/L (0-33); Albumin Level 3.7 g/dL (3.5-5.2); Alkaline Phosphatase 141 U/L (35-105); Anion Gap 20.9 (5-19); Aspartate Amino Transferase 79 U/L (0-32); Blood Urea Nitrogen 16 mg/dL (8-23); Calcium 9.5 mg/dL (8.5-10.5); Carbon Dioxide 21 mmol/L (22-29); Chloride 97 mmol/L (98-107); Globulin 3.4 g/dL (1.3-4.6); Glucose 84 mg/dL (65-115); Osmolality Calculated 282 mOsm/kg (285-295); Sodium 136 mmol/L (136-145); Total Protein 7.1 g/dL (6.6-8.7)
--- NOTE | 2025-06-20 18:13 | CTR_ITS ---
PROCEDURE INFORMATION: Exam: CT Head Without Contrast Exam date and time: 06/20/2025 6:20 PM Age: 80 years old Clinical indication: Injury or trauma; Blunt trauma (contusions or hematomas); Patient sustained fall at home landing onto left side. Denies headstrike. Anticoagulated. ; Additional info: Fall, hit head TECHNIQUE: Imaging protocol: Computed tomography of the head without contrast. 295 image(s) are submitted. Radiation optimization: All CT scans at this facility use at least one of these dose optimization techniques: automated exposure control; mA and/or kV adjustment per patient size (includes targeted exams where dose is matched to clinical indication); or iterative reconstruction. COMPARISON: CT head wo con* [id number] 08/05/2021 8:08 AM RADIATION DOSE METRICS: Total DLP (mGy-cm): 1119.65 FINDINGS: Brain: Moderate cerebral and cerebellar atrophy, unchanged without acute intracranial hemorrhage, mass effect or hydrocephalus. No evidence of skull fracture or scalp swelling. Cerebral ventricles: See Brain finding. Paranasal sinuses: Visualized sinuses are unremarkable. No fluid levels. Mastoid air cells: Visualized mastoid air cells are well aerated. Bones: See Brain finding. Soft tissues: See Brain finding. CT/CT head wo con* [id number] IMPRESSION: Moderate cerebral and cerebellar atrophy, unchanged without acute intracranial hemorrhage, mass effect or hydrocephalus. No evidence of skull fracture or scalp swelling.
--- NOTE | 2025-06-20 18:13 | CTR_ITS ---
PROCEDURE INFORMATION: Exam: CT Cervical Spine Without Contrast Exam date and time: 06/20/2025 6:20 PM Age: 80 years old Clinical indication: Injury or trauma; Blunt trauma; Patient sustained fall at home landing onto left side. Denies headstrike. Anticoagulated. ; Additional info: Fall, hit head TECHNIQUE: Imaging protocol: Computed tomography of the cervical spine without contrast. 295 image(s) are submitted. Radiation optimization: All CT scans at this facility use at least one of these dose optimization techniques: automated exposure control; mA and/or kV adjustment per patient size (includes targeted exams where dose is matched to clinical indication); or iterative reconstruction. COMPARISON: CT angio neck [id number] 10/05/2021 10:32 AM RADIATION DOSE METRICS: Total DLP (mGy-cm): 180.9 FINDINGS: Bones: Extensive degenerative disc disease and facet joint arthropathy throughout the cervical spine without fracture or dislocation or focal bony destruction. No prevertebral soft tissue swelling or hemorrhage within the spinal canal. 3 mm anterior spondylolisthesis of C3 on C4. Overall, no change since prior study. Lungs: Lung apices are normal. Soft tissues: See Bones finding. CT/CT cervical spin wo con* [id number] IMPRESSION: Extensive degenerative disc disease and facet joint arthropathy throughout the cervical spine without fracture or dislocation or focal bony destruction. No prevertebral soft tissue swelling or hemorrhage within the spinal canal. 3 mm anterior spondylolisthesis of C3 on C4. Overall, no change since prior study.
--- NOTE | 2025-06-20 18:15 | ED_ITS ---
Documented by User: ITALO Talavera 06/20/25 20:48 HPI - URI/Sore Throat 2 General: Chief Complaint: Upper Respiratory Infection Stated Complaint: left hip pain s/p fall Time Seen by Provider: 06/20/25 17:37 Source: patient and EMS Mode of arrival: EMS Limitations: no limitations History of Present Illness: Patient is a 80-year-old female with past medical history of chronic kidney disease, COPD, and arteriosclerotic heart disease presenting to the emergency department by ambulance for a fall that occurred earlier today. She arrives by EMS, called by family, after patient was found laying on the floor. EMS arrived she was still on the floor, patient had reported to them that she was weak which caused her to fall. She is noting that she is having pain to the left hip region, but has been able to move the extremities and there is no deformity of the left lower extremity on arrival. She does have COPD, does not wear oxygen at baseline, currently 93% SpO2 on room air. She has been complaining of a cough that has been worsening, but overall states this is chronic. She does note that she hit her head and is hurting primarily to the back of her head. Denies any chest pain or shortness of breath. Slightly hypertensive at this time but rest of her vitals unremarkable. She does have active productive cough at bedside. MD elicited complaint: cough and other (Fall, left hip pain) Associated symptoms: Reports headache(s); Deny abdominal pain, chills, chest pain, diarrhea, ear or mastoid pain, fever(s), nausea or vomiting Related Data Home Medications ?Medication ?Instructions ?Recorded ?Confirmed diltiazem HCl 240 mg capsule,24 240 mg PO QPM 06/21/25 06/21/25 hr,extended release (Tiazac) Previous Rx's ?Medication ?Instructions ?Recorded nebulizers #1 ea 09/22/21 magnesium hydroxide 400 mg/5 mL 15 ml PO DAILY PRN con stipation 04/15/23 oral suspension (Milk of Magnesia) #355 mL mupirocin 2 % topical ointment 1 applic topical TID AZ N skin 10/13/24 irritation #30 grams furosemide 20 mg tablet (Lasix) 20 mg PO QAM PRN weigh t gain #30 01/07/25 tabs albuterol sulfate 90 mcg/actuation 2 puff inhalation Q ID #8.5 grams 04/06/25 aerosol inhaler clopidogrel 75 mg tablet 75 mg PO DAILY #30 tabs 03/25 09/16 fluticasone fur. 100 mcg-umeclid 1 inh inhalation Q24H #60 ea 04/06/25 62.5 mcg-vilant 25 mcg inhalat.powder (Trelegy Ellipta) hydroxyzine pamoate 50 mg capsule 50 mg PO BID #60 cap s 04/06/25 ketoconazole 2 % shampoo 1 applic topical .On Sun & riday 04/06/25 #120 mL loratadine 10 mg tablet (Claritin) 10 mg PO DAILY #30 tabs 04/06/25 losartan 100 mg tablet 100 mg PO DAILY #30 tabs metoprolol succinate 25 mg 25 mg PO DAILY #30 tabs tablet,extended release 24 hr olanzapine 5 mg tablet (Zyprexa) 5 mg PO .at supper ti me #30 tabs 04/06/25 rosuvastatin 40 mg tablet (Crestor) 40 mg PO DAILY #30 tabs 04/06/25 venlafaxine 150 mg 150 mg PO BEDTIME #30 caps 1 capsule,extended release 24 hr (Effexor XR) calcipotriene 0.005 % topical 1 applic topical DAILY # 60 grams 04/23/25 ointment nitroglycerin 0.4 mg sublingual 0.4 mg sublingual Q5M PRN chest 06/09/25 tablet (Nitrostat) pain #25 tabs levofloxacin 750 mg tablet 750 mg PO DAILY 7 days #7 t abs 06/20/25 Allergies Allergy/AdvReac Type Severity Reaction Status Date / Time cephalexin (From [employer]) Allergy ADR-Nausea Verified 06/20/25 16:54 Review of Systems 2 General: Reports: 10 or more systems reviewed and unremarkable except in HPI and below Const: Reports: fatigue, malaise and other (Fall, hit head); Denies: fever(s) or chills Eyes: Denies: change in vision ENMT: Denies: throat pain, ear or mastoid pain or nasal discharge Card: Denies: chest pain, palpitations, swelling of feet/ankles or lightheadedness Resp: Reports: productive cough; Denies: dyspnea or wheezing GI: Denies: abdominal pain, nausea, vomiting, diarrhea or constipation : Denies: flank pain, difficulty voiding, dysuria or urinary frequency Musc: Denies: neck pain, back pain or joint pain Skin/Breast: Denies: rash Neuro: Reports: headache(s); Denies: numbness in extremities, weakness in extremities, dizziness or seizure- like activity PFSH ED 2 PFSH: Medical History Single functional kidney History of borderline personality disorder Bipolar disorder Hard of hearing Anemia Weakness Acute hyponatremia CKD (chronic kidney disease) Chronic migraine Personal history of smoking Fibromyalgia Cervical disc disorder with myelopathy of mid-cervical region Anxiety with depression Arteriosclerotic heart disease (ASHD) COPD (chronic obstructive pulmonary disease) Mixed hyperlipidemia Environmental and seasonal allergies Essential hypertension Osteoarthritis, generalized Vitamin B 12 deficiency Vitamin D deficiency Surgical History History of cataract surgery Hx of right breast biopsy needle Biopsy synergistic History of hysterectomy with bilateral oophorectomy History of nephrectomy, left [address] [facility] History of heart artery stent LAD, 2011 left circumflex 2019 Family History Mother Cancer Father Alcoholism Other Heart disease Psychiatric illness Denies family history of Diabetes Social History Smoking and tobacco/nicotine status: current every day tobacco/nicotine user cigarettes Packs smoked per day: 1 Years cigarettes smoked: 40 Second hand smoke exposure: Yes Alcohol intake: current Alcohol intake frequency: few times a week Alcohol type: beer and hard liquor Substance/Drug Use: never Additional social history: patient has 3 biological children - one son has , another son lives in [place], a daughter lives elsewhere in [place] has children of his own Adopted: No Caregiver/support person: No Lives independently: Yes Household members: spouse Housing: House Marital status: Number of children: 3 service: No Current occupational status: retired and disabled Current occupational exposures/hazards: No Pets and animals: Yes Pets & animals: cat(s) and other Pets & animal details: guinea Do you think of yourself as: Straight/Heterosexual Current gender identity: Female Physical Exam 2 Const: COMMON NORMALS: patient oriented x3 and no limitations GENERAL APPEARANCE: cooperative and well developed ORIENTATION/CONSCIOUSNESS: Yes awake, Yes oriented to person, Yes oriented to place and Yes oriented to time OTHER: Chronically ill-appearing HENMT: COMMON NORMALS: normocephalic, atraumatic and hearing grossly normal bilaterally HEAD & SCALP: normocephalic and atraumatic OTHER: Mild tender to palpation occipital region with no hematoma or signs of trauma. Negative raccoon eyes, negative Saldivar sign Eye: COMMON NORMALS: Equal, round and reactive pupils present, EOMs intact bilaterally and conjunctivae normal CONJUNCTIVA: Yes conjunctivae normal P UPIL: Yes Equal, round and reactive pupils present Neck/C-Spine: COMMON NORMALS: full ROM and supple OTHER: No C-spine tenderness to palpation Chest: COMMONS NORMALS: normal inspection of the chest and normal palpation of entire chest wall Resp: COMMON NORMALS: normal respiratory effort, No retractions and No use of accessory muscles AUSCULTATION: wheezes scattered wheezes OTHER: Active productive cough Cardio: COMMON NORMALS: regular rate, regular rhythm, No clicks present (Cardio), No murmurs present (Cardio) and No rub (Cardio) RATE: regular rate RHYTHM: regular rhythm GI: COMMON NORMALS: Normal to inspection, nondistended, normoactive bowel sounds present, Soft to palpation and non-tender AUSCULTATION: Yes normoactive bowel sounds PALPATION: Yes Soft to palpation RECTAL EXAM: d eferred Extremity: COMMON NORMALS: full ROM and capillary refill normal NARRATIVE EXTREMITY EXAM: Hips are nontender to palpation, pelvis stable. Able to lift the left leg without difficulty, strength is intact. Distal neurovascular exam is normal. Neuro: COMMON NORMALS: patient oriented x3, moves all extremities, no focal motor deficits and no sensory deficits noted SENSORIUM/ORIENTATION: Yes oriented to person, Yes oriented to place and Yes oriented to time Skin: COMMON NORMALS: no rashes or lesions noted GENERAL SKIN EXAM: no rashes or lesions noted Course 2 Vital Signs: Vital signs: Vital Signs Temperature 98.4 F 06/20/25 16:40 Pulse Rate 107 H 06/20/25 21:47 Respiratory Rate 20 H 06/20/25 21:47 Blood Pressure 171/103 06/20/25 21:47 Pulse Oximetry 92 06/20/25 21:47 Oxygen Delivery Me thod Room Air 06/20/25 16:40 MDM - URI/Sore Throat Medical Decision Making Patient presented by ambulance after a fall, was found down by EMS. Patient had concern that she hurt her left hip, though she has full range of motion here at time of examination there is no shortening or internal/external rotation and pelvis is stable overall. Neurovascular exam was also intact lower extremity and x-ray rules out any fracture or dislocation of that left hip where she had pain. Of note she was also noting that she has been having more productive cough recently, she has a history of COPD. Has been oxygenating well on room air. While there are no adventitious heart or lung sounds on examination she is actively coughing at bedside that is notably productive. There is also reports of her possibly hitting her head with the fall, she has not had any chest pain here. EKG showing no rhythm changes. Chest x-ray with new pulmonary infiltrate to the left lower lung. Head neck CT showing no acute traumatic findings. Her delta troponin is negative. Viral swab negative. Signs of possible mild UTI. No leukocytosis with her CBC, metabolic panel showed hypokalemia 2.9, she has a history of hypokalemia she has oral replacement given here, her magnesium was normal. While she is oxygenating well and overall has maintained stability, I did offer her admission for observation for her pneumonia, high risk medical history, low potassium, and possible serial breathing treatments however she denied breathing treatments here, and states that she would want to go home. However she does endorse understanding to return precautions and tells me she will come back if her symptoms worsen. There are no traumatic findings from the fall, and she will begin Levaquin for community-acquired pneumonia/UTI. Lab Data 06/20/25 17:45 06/20/25 17:45 Radiology Impressions Hip/Pelvis X-Ray 06/20/25 16:46 IMPRESSION: Mild degenerative osteoarthritis of bilateral hip joints, worse on the right side, similar compared to prior x-ray study without acute fracture or dislocation or focal bony destruction. Chest X-Ray 06/20/25 17:00 IMPRESSION: 10 cm left mid to lower lung pulmonary infiltrate, new since prior study, consistent with pneumonia in the correct clinical setting. Cervical Spine CT 06/20/25 18:13 IMPRESSION: Extensive degenerative disc disease and facet joint arthropathy throughout the cervical spine without fracture or dislocation or focal bony destruction. No prevertebral soft tissue swelling or hemorrhage within the spinal canal. 3 mm anterior spondylolisthesis of C3 on C4. Overall, no change since prior study. Head CT 06/20/25 18:13 IMPRESSION: Moderate cerebral and cerebellar atrophy, unchanged without acute intracranial hemorrhage, mass effect or hydrocephalus. No evidence of skull fracture or scalp swelling. Laboratory Results WBC 8.49 10^3/uL (3.29-11.43) 06/20/25 17:45 RBC 4.20 10^6/uL (3.85-5.65) 06/20/25 17:45 Hgb 11.80 g/dL (11.27-16.99) 06/20/25 17:45 Hct 35.7 % (36-47) L 06/20/25 17:45 MCV 85.0 fl (85-98) 06/20/25 17:45 MCH 28.1 pg (27-33) 06/20/25 17:45 MCHC 33.1 g/dL (30-55) 06/20/25 17:45 RDW 16.3 % (12.1-15.1) H 06/20/25 17:45 Plt Count 290 10^3/cmm (157-399) 06/20/25 17:45 MPV 9.6 fL (7.4-10.4) 06/20/25 17:45 Neut % (Auto) 74.2 % 06/20/25 17:45 Lymph % (Auto) 16.4 % 06/20/25 17:45 [place] % (Auto) 8.6 % 06/20/25 17:45 Eos % (Auto) 0.2 % 06/20/25 17:45 Baso % (Auto) 0.5 % 06/20/25 17:45 Neut # (Auto) 6.30 10^3/uL (1.8-7.7) 06/20/25 17:45 Lymph # (Auto) 1.4 10^3/uL (0.8-4.8) 06/20/25 17:45 [place] # (Auto) 0.7 10^3/uL (0.2-0.9) 06/20/25 17:45 Eos # (Auto) 0.0 10^3/uL (0.0-0.8) 06/20/25 17:45 Baso # (Auto) 0.0 10^3/uL (0.0-0.1) 06/20/25 17:45 Nucleated RBC % (auto) 0 % 06/20/25 17:45 Nucleated RBCs # 0.0 /100WBC 06/20/25 17:45 Sodium 136 mmol/L (136-145) 06/20/25 17:45 Potassium 2.9 mmol/L (3.5-5.1) L 06/20/25 17:45 Chloride 97 mmol/L (98-107) L 06/20/25 17:45 Carbon Dioxide 21 mmol/L (22-29) L 06/20/25 17:45 Anion Gap 20.9 (5-19) H 06/20/25 17:45 BUN 16 mg/dL (8-23) 06/20/25 17:45 Creatinine 1.2 mg/dL (0.5-0.9) H 06/20/25 17:45 GFR Calculation Not Reportable 06/20/25 17:45 Glucose 84 mg/dL (65-115) 06/20/25 17:45 Calculated Osmolality 282 mOsm/kg (285-295) L 06/20/25 17:45 Calcium 9.5 mg/dL (8.5-10.5) 06/20/25 17:45 Magnesium 2.3 mg/dL (1.7-2.3) 06/20/25 17:15 Total Bilirubin 0.6 mg/dL (0.15-1.2) 06/20/25 17:45 AST 79 U/L (0-32) H 06/20/25 17:45 ALT 39 U/L (0-33) H 06/20/25 17:45 Alkaline Phosphatase 141 U/L (35-105) H 06/20/25 17:45 Troponin T Baseline 25 ng/L (0-10) H 06/20/25 17:15 Troponin T 60 Minute 25.66 ng/L (0-10) H 06/20/25 18:37 Delta Troponin T 0.66 ABS# (0-10) 06/20/25 18:37 Total Protein 7.1 g/dL (6.6-8.7) 06/20/25 17:45 Albumin 3.7 g/dL (3.5-5.2) 06/20/25 17:45 Globulin 3.4 g/dL (1.3-4.6) 06/20/25 17:45 Urine Color [place] (Yellow) A 06/20/25 19:34 Urine Appearance Cloudy (CLEAR) A 06/20/25 19:34 Urine pH 6.0 (5-7) 06/20/25 19:34 Ur Specific [place] 1.024 (1.005-1.030) 06/20/25 19:34 Urine Protein 4+ (Negative) A 06/20/25 19:34 Urine Glucose (UA) Negative (Normal) 06/20/25 19:34 Urine Ketones 1+ (Negative) H 06/20/25 19:34 Urine Blood 3+ (Negative) A 06/20/25 19:34 Urine Nitrate Negative (Negative) 06/20/25 19:34 Urine Bilirubin Negative (Negative) 06/20/25 19:34 Urine Urobilinogen 2.0 mg/dL (Negative) H 06/20/25 19:34 Ur Leukocyte Esterase 1+ (Negative) A 06/20/25 19:34 Urine RBC 3-5 /hpf (0-2) 06/20/25 19:34 Urine WBC 11-20 /hpf (0-5) H 06/20/25 19:34 Ur Squamous Epith Cells 6-10 /hpf (0-5) 06/20/25 19:34 Amorphous Sediment Not Reportable 06/20/25 19:34 Urine Bacteria 4+ /hpf (NONE) H 06/20/25 19:34 Hyaline Casts 34.74 /lpf 06/20/25 19:34 Influenza A (PCR) Negative (Negative) 06/20/25 19:40 Influenza Type B (PCR) Negative (Negative) 06/20/25 19:40 RSV (PCR) Negative (Negative) 06/20/25 19:40 SARS-CoV-2 (PCR) Negative (Negative) 06/20/25 19:40 All radiology interpretation(s) finalized by discharge Discharge Plan Discharge Patient Disposition: Home Clinical Impression: Acute UTI Pneumonia Qualifiers: Pneumonia type: due to unspecified organism Laterality: bilateral Lung location: lower lobe of lung Qualified Code(s): J18.9 - Pneumonia, unspecified organism Fall Qualifiers: Encounter type: initial encounter Qualified Code(s): W19.XXXA - Unspecified fall, initial encounter Contusion of hip, left Qualifiers: Encounter type: initial encounter Qualified Code(s): S70.02XA - Contusion of left hip, initial encounter Condition: Stable Prescriptions: New levofloxacin 750 mg tablet 750 mg PO DAILY 7 Days Qty: 7 0RF No Action (DME) nebulizers Misc See Rx Instructions .ROUTE .MEDSUPPLY Qty: 1 0RF Rx Instructions: As directed albuterol sulfate 90 mcg/actuation HFA aerosol inhaler 2 puff inhalation QID Qty: 8.5 2RF clopidogrel 75 mg tablet 75 mg PO DAILY Qty: 30 5RF Trelegy Ellipta 100-62.5-25 mcg blister with device 1 inh inhalation Q24H Qty: 60 5RF hydroxyzine pamoate 50 mg capsule 50 mg PO BID Qty: 60 5RF ketoconazole 2 % shampoo 1 applic topical .On Sun & Sunday Qty: 120 2RF loratadine [Claritin] 10 mg tablet 10 mg PO DAILY Qty: 30 5RF losartan 100 mg tablet 100 mg PO DAILY Qty: 30 5RF metoprolol succinate 25 mg tablet extended release 24 hr 25 mg PO DAILY Qty: 30 5RF olanzapine [Zyprexa] 5 mg tablet 5 mg PO .at supper time Qty: 30 5RF rosuvastatin [Crestor] 40 mg tablet 40 mg PO DAILY Qty: 30 5RF venlafaxine [Effexor XR] 150 mg capsule,extended release 24hr 150 mg PO BEDTIME Qty: 30 5RF calcipotriene 0.005 % ointment 1 applic topical DAILY Qty: 60 0RF Rx Instructions: rub in gently on scalp magnesium hydroxide [Milk of Magnesia] 400 mg/5 mL suspension 15 ml PO DAILY PRN (Reason: constipation) Qty: 355 0RF mupirocin 2 % ointment 1 applic TOPICAL TID PRN (Reason: skin irritation) Qty: 30 2RF Rx Instructions: use on skin abrasion neck, back and thigh furosemide [Lasix] 20 mg tablet 20 mg PO QAM PRN (Reason: weight gain) Qty: 30 5RF nitroglycerin [Nitrostat] 0.4 mg tablet, sublingual 0.4 mg SUBLINGUAL Q5M PRN (Reason: chest pain) Qty: 25 2RF diltiazem HCl [Tiazac] 240 mg capsule,extended release 24 hr 240 mg PO QPM Discharge Orders: Discharge ED (Routine); Ordered 06/20/25 Ordered By: Conner Alexander Referrals: Kevyn Jean, [facility] [Primary Care Provider, [facility]] Patient Instructions: Patient Portal & Alberto Instructions Activity Restrictions/Additional Instructions: Discharge Instructions DISCHARGE INSTRUCTIONS You were seen in the Emergency Department today for a fall and were diagnosed with: - Pneumonia (lung infection) - Left hip contusion (bruising of the left hip) - Possible urinary tract infection You are being discharged home with medications to treat these conditions. --- MEDICATIONS Levofloxacin (Levaquin) 750 mg - Take ONE tablet by mouth ONCE daily for 7 days - Take at the same time each day - Complete the full 7-day course even if you start feeling better - Can be taken with or without food - Drink plenty of fluids while taking this medication Important: If you develop tendon pain (especially in the ankle, shoulder, or hand), stop the medication immediately and contact your doctor, as this antibiotic can rarely cause tendon problems. --- ACTIVITY AND CARE FOR YOUR HIP - You may walk and move around as tolerated, but avoid activities that cause significant pain - Use ice packs on your left hip for 15-20 minutes at a time, several times daily, to reduce pain and swelling - You may use [id number] pain medication such as acetaminophen (Tylenol) as directed on the package - Avoid NSAIDs like ibuprofen if you have kidney problems or stomach ulcers FALL PREVENTION - VERY IMPORTANT: - Remove tripping hazards from your home (loose rugs, electrical cords, clutter) - Ensure adequate lighting, especially at night - Use handrails on stairs - Consider using an assistive device (cane or walker) if you feel unsteady - Wear sturdy, non-slip footwear - Avoid rushing when getting up from sitting or lying down - Consider having someone stay with you for the next few days --- WHAT TO EXPECT Pneumonia Recovery: - You may continue to feel tired and weak for several days to weeks - Cough may persist but should gradually improve - Fever should resolve within 2-3 days of starting antibiotics Hip Contusion: - Bruising and pain should gradually improve over 1-2 weeks - Some discomfort with movement is normal --- RETURN TO THE EMERGENCY DEPARTMENT IMMEDIATELY IF YOU DEVELOP: Breathing Problems: - Increasing shortness of breath or difficulty breathing - Chest pain, especially with breathing - Bluish color to lips or fingernails - Breathing faster than 30 breaths per minute Signs of Worsening Infection: - Fever that persists beyond 2-3 days or returns after improving - Fever higher than 101?F (38.3?C) - Coughing up blood - Confusion or significant change in mental status Other Warning Signs: - Inability to keep down food or liquids - Severe dizziness or fainting - Severe hip pain or inability to bear weight on your leg - New swelling, warmth, or redness in your leg --- FOLLOW-UP CARE - Contact your primary care doctor within 2-3 days to schedule a follow-up appointment - You should be seen within 1 week of discharge - Your doctor may want to check your progress and possibly order a follow-up chest X-ray if you have risk factors or persistent symptoms - Discuss fall prevention strategies and possible physical therapy referral with your doctor --- GENERAL INSTRUCTIONS - Rest as much as needed - Drink plenty of fluids (6-8 glasses of water daily unless your doctor has restricted your fluid intake) - Eat nutritious meals to help your body heal - Avoid smoking and secondhand smoke - Wash your hands frequently to prevent spreading infection Questions? If you have any questions or concerns, contact your primary care doctor. Emergency? Call 911 or return to the Emergency Department immediately if you experience any of the warning signs listed above. Print Language: Luxembourgish Coding Level of Care Code ED [employer]ner for g Fwd Documented by User: Dima Holder DO 06/22/25 10:56 HPI - URI/Sore Throat 2 General: Chief Complaint: Upper Respiratory Infection Stated Complaint: left hip pain s/p fall Time Seen by Provider: 06/20/25 17:37 Related Data Home Medications ?Medication ?Instructions ?Recorded ?Confirmed diltiazem HCl 240 mg capsule,24 240 mg PO QPM 06/21/25 06/21/25 hr,extended release (Tiazac) Previous Rx's ?Medication ?Instructions ?Recorded nebulizers #1 ea 09/22/21 magnesium hydroxide 400 mg/5 mL 15 ml PO DAILY PRN con stipation 04/15/23 oral suspension (Milk of Magnesia) #355 mL mupirocin 2 % topical ointment 1 applic topical TID [place] N skin 10/13/24 irritation #30 grams furosemide 20 mg tablet (Lasix) 20 mg PO QAM PRN weigh t gain #30 01/07/25 tabs albuterol sulfate 90 mcg/actuation 2 puff inhalation Q ID #8.5 grams 04/06/25 aerosol inhaler clopidogrel 75 mg tablet 75 mg PO DAILY #30 tabs 03/25 09/16 fluticasone fur. 100 mcg-umeclid 1 inh inhalation Q24H #60 ea 04/06/25 62.5 mcg-vilant 25 mcg inhalat.powder (Trelegy Ellipta) hydroxyzine pamoate 50 mg capsule 50 mg PO BID #60 cap s 04/06/25 ketoconazole 2 % shampoo 1 applic topical .On Sun & riday 04/06/25 #120 mL loratadine 10 mg tablet (Claritin) 10 mg PO DAILY #30 tabs 04/06/25 losartan 100 mg tablet 100 mg PO DAILY #30 tabs metoprolol succinate 25 mg 25 mg PO DAILY #30 tabs tablet,extended release 24 hr olanzapine 5 mg tablet (Zyprexa) 5 mg PO .at supper ti me #30 tabs 04/06/25 rosuvastatin 40 mg tablet (Crestor) 40 mg PO DAILY #30 tabs 04/06/25 venlafaxine 150 mg 150 mg PO BEDTIME #30 caps 1 capsule,extended release 24 hr (Effexor XR) calcipotriene 0.005 % topical 1 applic topical DAILY # 60 grams 04/23/25 ointment nitroglycerin 0.4 mg sublingual 0.4 mg sublingual Q5M PRN chest 06/09/25 tablet (Nitrostat) pain #25 tabs levofloxacin 750 mg tablet 750 mg PO DAILY 7 days #7 t abs 06/20/25 Allergies Allergy/AdvReac Type Severity Reaction Status Date / Time cephalexin (From [employer]) Allergy ADR-Nausea Verified 06/20/25 16:54 PFSH ED 2 PFSH: Medical History Single functional kidney History of borderline personality disorder Bipolar disorder Hard of hearing Anemia Weakness Acute hyponatremia CKD (chronic kidney disease) Chronic migraine Personal history of smoking Fibromyalgia Cervical disc disorder with myelopathy of mid-cervical region Anxiety with depression Arteriosclerotic heart disease (ASHD) COPD (chronic obstructive pulmonary disease) Mixed hyperlipidemia Environmental and seasonal allergies Essential hypertension Osteoarthritis, generalized Vitamin B 12 deficiency Vitamin D deficiency Surgical History History of cataract surgery Hx of right breast biopsy needle Biopsy synergistic History of hysterectomy with bilateral oophorectomy History of nephrectomy, left [address] [facility] History of heart artery stent LAD, 2011 left circumflex 2019 Family History Mother Cancer Father Alcoholism Other Heart disease Psychiatric illness Denies family history of Diabetes Social History Smoking and tobacco/nicotine status: current every day tobacco/nicotine user cigarettes Packs smoked per day: 1 Years cigarettes smoked: 40 Second hand smoke exposure: Yes Alcohol intake: current Alcohol intake frequency: few times a week Alcohol type: beer and hard liquor Substance/Drug Use: never Additional social history: patient has 3 biological children - one son has , another son lives in [place], a daughter lives elsewhere in [place] has children of his own Adopted: No Caregiver/support person: No Lives independently: Yes Household members: spouse Housing: House Marital status: Number of children: 3 service: No Current occupational status: retired and disabled Current occupational exposures/hazards: No Pets and animals: Yes Pets & animals: cat(s) and other Pets & animal details: guinea Do you think of yourself as: Straight/Heterosexual Current gender identity: Female Course 2 Vital Signs: Vital signs: Vital Signs Temperature 98.4 F 06/20/25 16:40 Pulse Rate 107 H 06/20/25 21:47 Respiratory Rate 20 H 06/20/25 21:47 Blood Pressure 171/103 06/20/25 21:47 Pulse Oximetry 92 06/20/25 21:47 Oxygen Delivery Me thod Room Air 06/20/25 16:40 MDM - URI/Sore Throat Medical Decision Making Patient presented by ambulance after a fall, was found down by EMS. Patient had concern that she hurt her left hip, though she has full range of motion here at time of examination there is no shortening or internal/external rotation and pelvis is stable overall. Neurovascular exam was also intact lower extremity and x-ray rules out any fracture or dislocation of that left hip where she had pain. Of note she was also noting that she has been having more productive cough recently, she has a history of COPD. Has been oxygenating well on room air. While there are no adventitious heart or lung sounds on examination she is actively coughing at bedside that is notably productive. There is also reports of her possibly hitting her head with the fall, she has not had any chest pain here. EKG showing no rhythm changes. Chest x-ray with new pulmonary infiltrate to the left lower lung. Head neck CT showing no acute traumatic findings. Her delta troponin is negative. Viral swab negative. Signs of possible mild UTI. No leukocytosis with her CBC, metabolic panel showed hypokalemia 2.9, she has a history of hypokalemia she has oral replacement given here, her magnesium was normal. While she is oxygenating well and overall has maintained stability, I did offer her admission for observation for her pneumonia, high risk medical history, low potassium, and possible serial breathing treatments however she denied breathing treatments here, and states that she would want to go home. However she does endorse understanding to return precautions and tells me she will come back if her symptoms worsen. There are no traumatic findings from the fall, and she will begin Levaquin for community-acquired pneumonia/UTI. Chart reviewed Lab Data 06/20/25 17:45 06/20/25 17:45 Radiology Impressions Hip/Pelvis X-Ray 06/20/25 16:46 IMPRESSION: Mild degenerative osteoarthritis of bilateral hip joints, worse on the right side, similar compared to prior x-ray study without acute fracture or dislocation or focal bony destruction. Chest X-Ray 06/20/25 17:00 IMPRESSION: 10 cm left mid to lower lung pulmonary infiltrate, new since prior study, consistent with pneumonia in the correct clinical setting. Cervical Spine CT 06/20/25 18:13 IMPRESSION: Extensive degenerative disc disease and facet joint arthropathy throughout the cervical spine without fracture or dislocation or focal bony destruction. No prevertebral soft tissue swelling or hemorrhage within the spinal canal. 3 mm anterior spondylolisthesis of C3 on C4. Overall, no change since prior study. Head CT 06/20/25 18:13 IMPRESSION: Moderate cerebral and cerebellar atrophy, unchanged without acute intracranial hemorrhage, mass effect or hydrocephalus. No evidence of skull fracture or scalp swelling. Laboratory Results WBC 8.49 10^3/uL (3.29-11.43) 06/20/25 17:45 RBC 4.20 10^6/uL (3.85-5.65) 06/20/25 17:45 Hgb 11.80 g/dL (11.27-16.99) 06/20/25 17:45 Hct 35.7 % (36-47) L 06/20/25 17:45 MCV 85.0 fl (85-98) 06/20/25 17:45 MCH 28.1 pg (27-33) 06/20/25 17:45 MCHC 33.1 g/dL (30-55) 06/20/25 17:45 RDW 16.3 % (12.1-15.1) H 06/20/25 17:45 Plt Count 290 10^3/cmm (157-399) 06/20/25 17:45 MPV 9.6 fL (7.4-10.4) 06/20/25 17:45 Neut % (Auto) 74.2 % 06/20/25 17:45 Lymph % (Auto) 16.4 % 06/20/25 17:45 [place] % (Auto) 8.6 % 06/20/25 17:45 Eos % (Auto) 0.2 % 06/20/25 17:45 Baso % (Auto) 0.5 % 06/20/25 17:45 Neut # (Auto) 6.30 10^3/uL (1.8-7.7) 06/20/25 17:45 Lymph # (Auto) 1.4 10^3/uL (0.8-4.8) 06/20/25 17:45 [place] # (Auto) 0.7 10^3/uL (0.2-0.9) 06/20/25 17:45 Eos # (Auto) 0.0 10^3/uL (0.0-0.8) 06/20/25 17:45 Baso # (Auto) 0.0 10^3/uL (0.0-0.1) 06/20/25 17:45 Nucleated RBC % (auto) 0 % 06/20/25 17:45 Nucleated RBCs # 0.0 /100WBC 06/20/25 17:45 Sodium 136 mmol/L (136-145) 06/20/25 17:45 Potassium 2.9 mmol/L (3.5-5.1) L 06/20/25 17:45 Chloride 97 mmol/L (98-107) L 06/20/25 17:45 Carbon Dioxide 21 mmol/L (22-29) L 06/20/25 17:45 Anion Gap 20.9 (5-19) H 06/20/25 17:45 BUN 16 mg/dL (8-23) 06/20/25 17:45 Creatinine 1.2 mg/dL (0.5-0.9) H 06/20/25 17:45 GFR Calculation Not Reportable 06/20/25 17:45 Glucose 84 mg/dL (65-115) 06/20/25 17:45 Calculated Osmolality 282 mOsm/kg (285-295) L 06/20/25 17:45 Calcium 9.5 mg/dL (8.5-10.5) 06/20/25 17:45 Magnesium 2.3 mg/dL (1.7-2.3) 06/20/25 17:15 Total Bilirubin 0.6 mg/dL (0.15-1.2) 06/20/25 17:45 AST 79 U/L (0-32) H 06/20/25 17:45 ALT 39 U/L (0-33) H 06/20/25 17:45 Alkaline Phosphatase 141 U/L (35-105) H 06/20/25 17:45 Troponin T Baseline 25 ng/L (0-10) H 06/20/25 17:15 Troponin T 60 Minute 25.66 ng/L (0-10) H 06/20/25 18:37 Delta Troponin T 0.66 ABS# (0-10) 06/20/25 18:37 Total Protein 7.1 g/dL (6.6-8.7) 06/20/25 17:45 Albumin 3.7 g/dL (3.5-5.2) 06/20/25 17:45 Globulin 3.4 g/dL (1.3-4.6) 06/20/25 17:45 Urine Color [place] (Yellow) A 06/20/25 19:34 Urine Appearance Cloudy (CLEAR) A 06/20/25 19:34 Urine pH 6.0 (5-7) 06/20/25 19:34 Ur Specific [place] 1.024 (1.005-1.030) 06/20/25 19:34 Urine Protein 4+ (Negative) A 06/20/25 19:34 Urine Glucose (UA) Negative (Normal) 06/20/25 19:34 Urine Ketones 1+ (Negative) H 06/20/25 19:34 Urine Blood 3+ (Negative) A 06/20/25 19:34 Urine Nitrate Negative (Negative) 06/20/25 19:34 Urine Bilirubin Negative (Negative) 06/20/25 19:34 Urine Urobilinogen 2.0 mg/dL (Negative) H 06/20/25 19:34 Ur Leukocyte Esterase 1+ (Negative) A 06/20/25 19:34 Urine RBC 3-5 /hpf (0-2) 06/20/25 19:34 Urine WBC 11-20 /hpf (0-5) H 06/20/25 19:34 Ur Squamous Epith Cells 6-10 /hpf (0-5) 06/20/25 19:34 Amorphous Sediment Not Reportable 06/20/25 19:34 Urine Bacteria 4+ /hpf (NONE) H 06/20/25 19:34 Hyaline Casts 34.74 /lpf 06/20/25 19:34 Influenza A (PCR) Negative (Negative) 06/20/25 19:40 Influenza Type B (PCR) Negative (Negative) 06/20/25 19:40 RSV (PCR) Negative (Negative) 06/20/25 19:40 SARS-CoV-2 (PCR) Negative (Negative) 06/20/25 19:40 Discharge Plan Discharge Patient Disposition: Home Clinical Impression: Acute UTI Pneumonia Qualifiers: Pneumonia type: due to unspecified organism Laterality: bilateral Lung location: lower lobe of lung Qualified Code(s): J18.9 - Pneumonia, unspecified organism Fall Qualifiers: Encounter type: initial encounter Qualified Code(s): W19.XXXA - Unspecified fall, initial encounter Contusion of hip, left Qualifiers: Encounter type: initial encounter Qualified Code(s): S70.02XA - Contusion of left hip, initial encounter Condition: Stable Prescriptions: New levofloxacin 750 mg tablet 750 mg PO DAILY 7 Days Qty: 7 0RF No Action (DME) nebulizers Misc See Rx Instructions .ROUTE .MEDSUPPLY Qty: 1 0RF Rx Instructions: As directed albuterol sulfate 90 mcg/actuation HFA aerosol inhaler 2 puff inhalation QID Qty: 8.5 2RF clopidogrel 75 mg tablet 75 mg PO DAILY Qty: 30 5RF Trelegy Ellipta 100-62.5-25 mcg blister with device 1 inh inhalation Q24H Qty: 60 5RF hydroxyzine pamoate 50 mg capsule 50 mg PO BID Qty: 60 5RF ketoconazole 2 % shampoo 1 applic topical .On Sun & Sunday Qty: 120 2RF loratadine [Claritin] 10 mg tablet 10 mg PO DAILY Qty: 30 5RF losartan 100 mg tablet 100 mg PO DAILY Qty: 30 5RF metoprolol succinate 25 mg tablet extended release 24 hr 25 mg PO DAILY Qty: 30 5RF olanzapine [Zyprexa] 5 mg tablet 5 mg PO .at supper time Qty: 30 5RF rosuvastatin [Crestor] 40 mg tablet 40 mg PO DAILY Qty: 30 5RF venlafaxine [Effexor XR] 150 mg capsule,extended release 24hr 150 mg PO BEDTIME Qty: 30 5RF calcipotriene 0.005 % ointment 1 applic topical DAILY Qty: 60 0RF Rx Instructions: rub in gently on scalp magnesium hydroxide [Milk of Magnesia] 400 mg/5 mL suspension 15 ml PO DAILY PRN (Reason: constipation) Qty: 355 0RF mupirocin 2 % ointment 1 applic TOPICAL TID PRN (Reason: skin irritation) Qty: 30 2RF Rx Instructions: use on skin abrasion neck, back and thigh furosemide [Lasix] 20 mg tablet 20 mg PO QAM PRN (Reason: weight gain) Qty: 30 5RF nitroglycerin [Nitrostat] 0.4 mg tablet, sublingual 0.4 mg SUBLINGUAL Q5M PRN (Reason: chest pain) Qty: 25 2RF diltiazem HCl [Tiazac] 240 mg capsule,extended release 24 hr 240 mg PO QPM Discharge Orders: Discharge ED (Routine); Ordered 06/20/25 Ordered By: Conner Alexander Referrals: Kevyn Jean, [facility] [Primary Care Provider, [facility]] Patient Instructions: Patient Portal & Alberto Instructions Activity Restrictions/Additional Instructions: Discharge Instructions DISCHARGE INSTRUCTIONS You were seen in the Emergency Department today for a fall and were diagnosed with: - Pneumonia (lung infection) - Left hip contusion (bruising of the left hip) - Possible urinary tract infection You are being discharged home with medications to treat these conditions. --- MEDICATIONS Levofloxacin (Levaquin) 750 mg - Take ONE tablet by mouth ONCE daily for 7 days - Take at the same time each day - Complete the full 7-day course even if you start feeling better - Can be taken with or without food - Drink plenty of fluids while taking this medication Important: If you develop tendon pain (especially in the ankle, shoulder, or hand), stop the medication immediately and contact your doctor, as this antibiotic can rarely cause tendon problems. --- ACTIVITY AND CARE FOR YOUR HIP - You may walk and move around as tolerated, but avoid activities that cause significant pain - Use ice packs on your left hip for 15-20 minutes at a time, several times daily, to reduce pain and swelling - You may use fbpf-yox-doccpma pain medication such as acetaminophen (Tylenol) as directed on the package - Avoid NSAIDs like ibuprofen if you have kidney problems or stomach ulcers FALL PREVENTION - VERY IMPORTANT: - Remove tripping hazards from your home (loose rugs, electrical cords, clutter) - Ensure adequate lighting, especially at night - Use handrails on stairs - Consider using an assistive device (cane or walker) if you feel unsteady - Wear sturdy, non-slip footwear - Avoid rushing when getting up from sitting or lying down - Consider having someone stay with you for the next few days --- WHAT TO EXPECT Pneumonia Recovery: - You may continue to feel tired and weak for several days to weeks - Cough may persist but should gradually improve - Fever should resolve within 2-3 days of starting antibiotics Hip Contusion: - Bruising and pain should gradually improve over 1-2 weeks - Some discomfort with movement is normal --- RETURN TO THE EMERGENCY DEPARTMENT IMMEDIATELY IF YOU DEVELOP: Breathing Problems: - Increasing shortness of breath or difficulty breathing - Chest pain, especially with breathing - Bluish color to lips or fingernails - Breathing faster than 30 breaths per minute Signs of Worsening Infection: - Fever that persists beyond 2-3 days or returns after improving - Fever higher than 101?F (38.3?C) - Coughing up blood - Confusion or significant change in mental status Other Warning Signs: - Inability to keep down food or liquids - Severe dizziness or fainting - Severe hip pain or inability to bear weight on your leg - New swelling, warmth, or redness in your leg --- FOLLOW-UP CARE - Contact your primary care doctor within 2-3 days to schedule a follow-up appointment - You should be seen within 1 week of discharge - Your doctor may want to check your progress and possibly order a follow-up chest X-ray if you have risk factors or persistent symptoms - Discuss fall prevention strategies and possible physical therapy referral with your doctor --- GENERAL INSTRUCTIONS - Rest as much as needed - Drink plenty of fluids (6-8 glasses of water daily unless your doctor has restricted your fluid intake) - Eat nutritious meals to help your body heal - Avoid smoking and secondhand smoke - Wash your hands frequently to prevent spreading infection Questions? If you have any questions or concerns, contact your primary care doctor. Emergency? Call 911 or return to the Emergency Department immediately if you experience any of the warning signs listed above. 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
[2025-06-20 18:17] LABS: Magnesium 2.3 mg/dL (1.7-2.3)
[2025-06-20 18:18] LABS: Potassium 2.9 mmol/L (3.5-5.1)
[2025-06-20 18:21] LABS: Troponin(5th) Baseline 25 ng/L (0-10)
[2025-06-20 18:29] LABS: Slide Review Slide Review Perform
--- NOTE | 2025-06-20 19:07 | ECG_ITS ---
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1945 Requested By: Conner Campa Order Number: [id number] Reading MD: MANJULA COHEN Measurements Intervals [place] Rate: 107 P: 54 DC: 171 QRS: -52 QRSD: 92 T: 66 QT: 326 QTc: 436 Interpretive Statements SINUS TACHYCARDIA LEFT AXIS DEVIATION [QRS AXIS < -30] ANTEROSEPTAL MYOCARDIAL INFARCTION , OF INDETERMINATE AGE [40+ ms Q WAVE IN V1-V4] Compared to ECG 08/06/2021 07:34:13 Atrial abnormality no longer present Myocardial infarct finding still present Electronically Signed On 06-21-2025 23:20:09 SOLAR INSTALLATION CREW SUPERVISOR by MANJULA COHEN [id number] [id number]
--- NOTE | 2025-06-20 19:36 | ECG_ITS ---
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
[2025-06-20 19:43] VITALS: BP 195/96; PULSE 90; RESP 16; O2SAT 93
[2025-06-20 19:46] LABS: Glucose Urine UA Negative (Normal); Nitrate Urine Negative (Negative); Specific Gravity, Urine 1.024 (1.005-1.030)
[2025-06-20 19:59] LABS: Add Urine Microscopic? YES; Universal Test for UA Present (0)
[2025-06-20 20:24] LABS: Respiratory Syncytial Virus Ce NEGATIVE (Negative); SARS-CoV-2 PCR NEGATIVE (Negative)
[2025-06-20 20:42] VITALS: BP 189/75; PULSE 111; RESP 19; O2SAT 92
[2025-06-20 21:00] VITALS: BP 157/121; PULSE 115; RESP 19; O2SAT 93
[2025-06-20 21:47] VITALS: BP 171/103; PULSE 107; RESP 20; O2SAT 92
== END 2025-06-20 22:38 | disposition home or self-care (01) ==
PROVIDERS: Emergency Medicine; Emergency Provider Physician Assistant; PCP Nurse Practitioner
DX: N39.0 Urinary tract infection, site not specified (principal); J18.9 Pneumonia, unspecified organism; S70.02XA Contusion of left hip, initial encounter; W19.XXXA Unspecified fall, initial encounter; Z11.52 Encounter for screening for COVID-19; J44.9 Chronic obstructive pulmonary disease, unspecified; E78.2 Mixed hyperlipidemia; I12.9 Hypertensive chronic kidney disease with stage 1 through stage 4 chronic kidney disease, or unspecified chronic kidney disease; N18.9 Chronic kidney disease, unspecified; F17.210 Nicotine dependence, cigarettes, uncomplicated; I25.10 Atherosclerotic heart disease of native coronary artery without angina pectoris
CPT/HCPCS: 36415; 70450; 71045; 72125; 73502; 80053; 81001; 83735; 84484; 85025; 87086; 87637; 93005; 99285; 99291; J7030; J9999

== ENCOUNTER 2025-06-21 10:28 | Inpatient (IN) | payer MEDICARE, OTHER, SELFPAY ==
[2025-06-21] VITALS (10 sets, daily range): BP systolic 162–194; BP diastolic 65–78; PULSE 87–114; RESP 17–20; TEMP 36.4–36.9; O2SAT 90–100; BMI 25.7
--- NOTE | 2025-06-21 10:33 | CTR_ITS ---
PROCEDURE INFORMATION: Exam: CT Head Without Contrast Exam date and time: 06/21/2025 10:53 AM Age: 80 years old Clinical indication: Injury or trauma; Fall; Blunt trauma (contusions or hematomas) TECHNIQUE: Imaging protocol: Computed tomography of the head without contrast. Radiation optimization: All CT scans at this facility use at least one of these dose optimization techniques: automated exposure control; mA and/or kV adjustment per patient size (includes targeted exams where dose is matched to clinical indication); or iterative reconstruction. COMPARISON: CT head wo con* [id number] 06/20/2025 06:20 PM RADIATION DOSE METRICS: Total DLP (mGy-cm): 890.9 FINDINGS: Brain: No acute intracranial hemorrhage or abnormal extra-axial fluid collections. No midline shift or mass-effect. Posterior fossa is unremarkable. Cerebral atrophy. Chronic microvascular ischemic changes in the periventricular and subcortical white matter. Bilateral basal ganglion remote lacunar infarcts. Cerebral ventricles: Normal in size and configuration. Paranasal sinuses: Mild mucosal thickening within ethmoid air cells in the left maxillary antrum. Mastoid air cells: Visualized mastoid air cells are well aerated. Bones: Unremarkable. No acute fracture. Soft tissues: Unremarkable. CT/CT head wo con* [id number] IMPRESSION: No acute intracranial abnormality.
--- NOTE | 2025-06-21 10:33 | XRR_ITS ---
PROCEDURE INFORMATION: Exam: XR Chest Exam date and time: 06/21/2025 10:36 AM Age: 80 years old Clinical indication: Shortness of breath; Prior surgery; Surgery date: 6+ months; Surgery type: Cardiac stent, breast lumpectomy; Additional info: SOB; Cough; AMS TECHNIQUE: Imaging protocol: Radiologic exam of the chest. Views: 1 view. COMPARISON: CR (CHEST, ) 06/20/2025 05:47 PM FINDINGS: Lungs: Peripheral ground-glass opacities in the lung bases with more confluent airspace disease in the left lower lobe and lingula. Pleural spaces: Unremarkable. No pleural effusion. No pneumothorax. Heart/Mediastinum: Cardiac size and configuration is stable. Vasculature: Atherosclerotic vascular disease. Bones/joints: Unremarkable. XR/XR chest 1V portable [id number] IMPRESSION: Peripheral ground-glass opacities in the lung bases with more confluent airspace disease in the left lower lobe and lingula. Pneumonia is of concern in the appropriate clinical presentation.
--- OUTSIDE RECORDS SUMMARY | 2025-06-21 10:35 | XMS_ITS | Clinical Summary ---
Author Organization [facility] Address [address] [address] Attn: [place] [address] Care Team Providers Care Card Table Attendant Name Role Phone Unavailable Primary Care Provider Unavailabl e Encounters Date Type Department Care Team Description 06/04/2025 Abstract [facility] Ear Nose and Throat Head Neck SGF [address] [place] [id number] Provider, Abstract from Last 3 Months Social History Tobacco Use Types Packs/Day Years Used Date Smoking Tobacco: Never Assessed Comments Unknown Sex and Gender Information Value Date Recorded Sex Assigned at Not on file Legal Sex Female 5:21 PM TIN FLOPPER Gender Identity Not on file Sexual Orientation [...]
--- OUTSIDE RECORDS SUMMARY | 2025-06-21 10:35 | XMS_ITS | Clinical Summary ---
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
--- OUTSIDE RECORDS SUMMARY | 2025-06-21 10:35 | XMS_ITS | Encounter Summary ---
Author Organization [facility] Address [address] [place] [address] Care Team Providers Care Golf Cart Mechanic Name Role Phone Unavailable Primary Care Provider Unavailabl e Encounter Details Date Type Department Care Team (Late st Contact Info) Description 02/16/2006 Emergency [facility] Emergency Department [address] [place] [id number] Jose Alejandro Anaya MD NO ADDRESS ON FILE Contusion of Knee (Primary Dx) Social History Tobacco Use Types Packs/Day Years Used Date Smoking Tobacco: Never Assessed Comments Unknown Sex and Gender Information Value Date Recorded Sex Assigned at Not on file Legal Sex Female 5:38 AM STAFF PHYSICAL THERAPY ASSISTANT Gender Identity Not on file Sexual Orientation [...] Ph.D. Date Signed: 02/16/06 us Jose Alejandro Aanya MD DIAGNOSTIC IMAGING ORDERABLE S Final Result [...]
--- NOTE | 2025-06-21 10:47 | ECG_ITS ---
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 Attendant: : 1945 Requested By: Gokul Freeman Order Number: [id number] Reading MD: MANJULA COHEN Measurements Intervals [place] Rate: 111 P: 51 [place]: 164 QRS: -45 QRSD: 81 T: 64 QT: 346 QTc: 472 Interpretive Statements SINUS TACHYCARDIA INFERIOR MYOCARDIAL INFARCTION , PROBABLY OLD [40+ ms Q WAVE AND/OR ST/T ABNORMALITY IN II/aVF] ANTEROSEPTAL MYOCARDIAL INFARCTION , OF INDETERMINATE AGE [40+ ms Q WAVE IN V1-V4] Compared to ECG 06/20/2025 19:36:04 Left-axis deviation no longer present Myocardial infarct finding still present Electronically Signed On 06-21-2025 22:54:[address] by MANJULA COHEN [id number] [id number]
--- NOTE | 2025-06-21 10:52 | W.ED.AMS ---
HPI - Altered Mental Status General: Chief Complaint: Altered Mental Status Stated Complaint: ams Time Seen by Provider: 06/21/25 10:30 Source: EMS Mode of arrival: EMS Limitations: altered mental status History of Present Illness: 80-year-old female seen here yesterday with diagnosed with pneumonia. Patient had EMS called as she has been altered throughout the night. Per EMS patient was found on the floor in urine and is very altered. Patient here is able follow commands and tell me her name but not able to really answer questions appropriately. She has had a productive cough and she is currently requiring 3 L oxygen does not typically wear oxygen at home. No focal deficits Related Data Previous Rx's ?Medication ?Instructions ?Recorded albuterol sulfate 2.5 mg/3 mL 2.5 mg (3 mL) inhalation Q4H PRN 06/10/21 (0.083 %) solution for nebulization shortness of breath or wheezing #75 mL nebulizers #1 ea 09/22/21 triamcinolone acetonide 0.1 % 1 applic topical BID PRN itching 03/13/23 topical cream #80 grams magnesium hydroxide 400 mg/5 mL 15 ml PO DAILY PRN constipation 04/15/23 oral suspension (Milk of Magnesia) #355 mL selenium sulfide 2.25 % shampoo 5 ml topical DAILY PRN scalp #180 02/26/24 mL mupirocin 2 % topical ointment 1 applic topical TID PRN skin 10/13/24 irritation #30 grams furosemide 20 mg tablet (Lasix) 20 mg PO QAM PRN weight gain #30 01/07/25 tabs albuterol sulfate 90 mcg/actuation 2 puff inhalation QID #8.5 grams 04/06/25 aerosol inhaler clopidogrel 75 mg tablet 75 mg PO DAILY #30 tabs 04/06/25 fluticasone fur. 100 mcg-umeclid 1 inh inhalation Q24H #60 ea 04/06/25 62.5 mcg-vilant 25 mcg inhalat.powder (Trelegy Ellipta) hydroxyzine pamoate 50 mg capsule 50 mg PO BID #60 caps 04/06/25 ketoconazole 2 % shampoo 1 applic topical .On Sun & Sunday04/06/25 #120 mL loratadine 10 mg tablet (Claritin) 10 mg PO DAILY #30 tabs 04/06/25 losartan 100 mg tablet 100 mg PO DAILY #30 tabs 04/06/25 metoprolol succinate 25 mg 25 mg PO DAILY #30 tabs 04/06/25 tablet,extended release 24 hr olanzapine 5 mg tablet (Zyprexa) 5 mg PO .at supper time #30 tabs 04/06/25 rosuvastatin 40 mg tablet (Crestor) 40 mg PO DAILY #30 tabs 04/06/25 venlafaxine 150 mg 150 mg PO BEDTIME #30 caps 04/06/25 capsule,extended release 24 hr (Effexor XR) calcipotriene 0.005 % topical 1 applic topical DAILY #60 grams 04/23/25 ointment diltiazem HCl 240 mg capsule,24 240 mg PO QAM #30 caps 06/02/25 hr,extended release (Tiazac) nitroglycerin 0.4 mg sublingual 0.4 mg sublingual Q5M PRN chest 06/09/25 tablet (Nitrostat) pain #25 tabs levofloxacin 750 mg tablet 750 mg PO DAILY 7 days #7 tabs 06/20/25 Allergies Allergy/AdvReac Type Severity Reaction Status Date / Time cephalexin (From Keflex) Allergy ADR-Nausea Verified 06/20/25 16:54 Review of Systems General: Reports: ROS unobtainable due to mental status PFSH ED PFSH: Medical History (Updated 06/21/25 @ 11:53 by Gokul Freeman MD) Single functional kidney History of borderline personality disorder Bipolar disorder Hard of hearing Anemia Weakness Acute hyponatremia CKD (chronic kidney disease) Chronic migraine Personal history of smoking Fibromyalgia Cervical disc disorder with myelopathy of mid-cervical region Anxiety with depression Arteriosclerotic heart disease (ASHD) COPD (chronic obstructive pulmonary disease) Mixed hyperlipidemia Environmental and seasonal allergies Essential hypertension Osteoarthritis, generalized Vitamin B 12 deficiency Vitamin D deficiency Surgical History History of cataract surgery Hx of right breast biopsy needle Biopsy synergistic History of hysterectomy with bilateral oophorectomy History of nephrectomy, left [address] [facility] History of heart artery stent LAD, 2011 left circumflex 2019 Family History Mother Cancer Father Alcoholism Other Heart disease Psychiatric illness Denies family history of Diabetes Social History Smoking and tobacco/nicotine status: current every day tobacco/nicotine user cigarettes Packs smoked per day: 1 Years cigarettes smoked: 40 Second hand smoke exposure: Yes Alcohol intake: current Alcohol intake frequency: few times a week Alcohol type: beer and hard liquor Substance/Drug Use: never Additional social history: patient has 3 biological children - one son has , another son lives in [place], a daughter lives elsewhere in [place] has children of his own Adopted: No Caregiver/support person: No Lives independently: Yes Household members: spouse Housing: House Marital status: Number of children: 3 service: No Current occupational status: retired and disabled Current occupational exposures/hazards: No Pets and animals: Yes Pets & animals: cat(s) and other Pets & animal details: guinea Do you think of yourself as: Straight/Heterosexual Current gender identity: Female Physical Exam Const: COMMON NORMALS: negative for patient oriented x3 GENERAL APPEARANCE: ill appearing HENMT: COMMON NORMALS: normocephalic and atraumatic HEAD & SCALP: normocephalic and atraumatic Neck/C-Spine: COMMON NORMALS: full ROM and supple Chest: COMMONS NORMALS: normal inspection of the chest Resp: COMMON NORMALS: No retractions and No use of accessory muscles AUSCULTATION: rhonchi left lower Cardio: COMMON NORMALS: regular rhythm and No murmurs present (Cardio) RATE: tachycardic RHYTHM: regular rhythm GI: COMMON NORMALS: Normal to inspection, nondistended, normoactive bowel sounds present, Soft to palpation, non-tender and no masses PALPATION: Yes Soft to palpation Extremity: COMMON NORMALS: normal to inspection and full ROM Neuro: COMMON NORMALS: moves all extremities and no focal motor deficits; negative for patient oriented x3 Psych: COMMON NORMALS: Normal thought process present and cooperative THOUGHT PROCESS: Normal thought process present Skin: COMMON NORMALS: no rashes or lesions noted and no wounds GENERAL SKIN EXAM: no rashes or lesions noted Course Vital Signs: Vital signs: Vital Signs Temperature 98.4 F 06/21/25 10:29 Pulse Rate 111 H 06/21/25 10:29 Respiratory Rate 17 06/21/25 10:29 Blood Pressure 186/76 06/21/25 10:29 Pulse Oximetry 90 06/21/25 10:29 Oxygen Delivery Me thod Nasal Cannula 06/21/25 10:29 Oxygen Flow Rate 3 06/21/25 10:29 MDM - Altered Mental Status Medical Decision Making 80-year-old female presents here with confusion along with increased shortness of breath differential includes pneumonia, intracranial hemorrhage, stroke. Patient has no signs of stroke. No focal deficits head CT shows no signs of hemorrhage. Patient does have a worsening left lower lobe pneumonia is likely causing some of her confusion as well. She has a new requirement of 3 L of oxygen labs showed no significant abnormality did start her on Levaquin spoke to hospitalist will admit at this time EKG interpreted by me at 1047 sinus tachycardia heart rate [address] elevation QRS 81 QTc 412 Medical Records I reviewed the patient's medical records. Lab Data I reviewed the patient's lab results. 06/21/25 10:50 06/21/25 10:50 Radiology Impressions Chest X-Ray 06/21/25 10:33 IMPRESSION: Peripheral ground-glass opacities in the lung bases with more confluent airspace disease in the left lower lobe and lingula. Pneumonia is of concern in the appropriate clinical presentation. Head CT 06/21/25 10:33 IMPRESSION: No acute intracranial abnormality. Laboratory Results WBC 6.47 10^3/uL (3.29-11.43) 06/21/25 10:50 RBC 4.22 10^6/uL (3.85-5.65) 06/21/25 10:50 Hgb 11.50 g/dL (11.27-16.99) 06/21/25 10:50 Hct 36.1 % (36-47) 06/21/25 10:50 MCV 85.5 fl (85-98) 06/21/25 10:50 MCH 27.3 pg (27-33) 06/21/25 10:50 MCHC 31.9 g/dL (30-55) 06/21/25 10:50 RDW 16.6 % (12.1-15.1) H 06/21/25 10:50 Plt Count 313 10^3/cmm (157-399) 06/21/25 10:50 MPV 9.6 fL (7.4-10.4) 06/21/25 10:50 Neut % (Auto) 76.2 % 06/21/25 10:50 Lymph % (Auto) 12.8 % 06/21/25 10:50 [place] % (Auto) 9.9 % 06/21/25 10:50 Eos % (Auto) 0.3 % 06/21/25 10:50 Baso % (Auto) 0.5 % 06/21/25 10:50 Neut # (Auto) 4.93 10^3/uL (1.8-7.7) 06/21/25 10:50 Lymph # (Auto) 0.8 10^3/uL (0.8-4.8) 06/21/25 10:50 [place] # (Auto) 0.6 10^3/uL (0.2-0.9) 06/21/25 10:50 Eos # (Auto) 0.0 10^3/uL (0.0-0.8) 06/21/25 10:50 Baso # (Auto) 0.0 10^3/uL (0.0-0.1) 06/21/25 10:50 Nucleated RBC % (auto) 0 % 06/21/25 10:50 Nucleated RBCs # 0.0 /100WBC 06/21/25 10:50 Sodium 137 mmol/L (136-145) 06/21/25 10:50 Potassium 2.9 mmol/L (3.5-5.1) L 06/21/25 10:50 Chloride 100 mmol/L (98-107) 06/21/25 10:50 Carbon Dioxide 21 mmol/L (22-29) L 06/21/25 10:50 Anion Gap 18.9 (5-19) 06/21/25 10:50 BUN 15 mg/dL (8-23) 06/21/25 10:50 Creatinine 1.1 mg/dL (0.5-0.9) H 06/21/25 10:50 GFR Calculation Not Reportable 06/21/25 10:50 Glucose 141 mg/dL (65-115) H 06/21/25 10:50 Calculated Osmolality 287 mOsm/kg (285-295) 06/21/25 10:50 Calcium 9.5 mg/dL (8.5-10.5) 06/21/25 10:50 Total Bilirubin 0.5 mg/dL (0.15-1.2) 06/21/25 10:50 AST 93 U/L (0-32) H 06/21/25 10:50 ALT 53 U/L (0-33) H 06/21/25 10:50 Alkaline Phosphatase 156 U/L (35-105) H 06/21/25 10:50 NT-Pro-B Natriuret Pep 1561 pg/mL (0-450) H 06/21/25 10:50 Total Protein 7.2 g/dL (6.6-8.7) 06/21/25 10:50 Albumin 3.4 g/dL (3.5-5.2) L 06/21/25 10:50 Globulin 3.8 g/dL (1.3-4.6) 06/21/25 10:50 TSH 1.63 uIU/mL (0.27-4.20) 06/21/25 10:50 All radiology interpretation(s) finalized by discharge Discharge Plan Discharge Patient Disposition: Admitted As Inpatient Clinical Impression: Pneumonia, Acute respiratory failure with hypoxia, Altered mental status Condition: Stable Coding Level of Care Code ED Programming Development Project Manager for Murali Quinn
[2025-06-21 10:58] LABS: Hematocrit 36.1 % (36-47); Hemoglobin 11.50 g/dL (11.27-16.99); Mean Corpuscular HGB Conc 31.9 g/dL (30-55); Mean Corpuscular Hemoglobin 27.3 pg (27-33); Mean Corpuscular Volume 85.5 fl (85-98); Nucleated Red Blood Cells % 0 %; Platelet Count 313 10^3/cmm (157-399); Red Blood Count 4.22 10^6/uL (3.85-5.65); White Blood Count 6.47 10^3/uL (3.29-11.43)
[2025-06-21 11:24] LABS: Alanine Aminotransferase 53 U/L (0-33); Albumin Level 3.4 g/dL (3.5-5.2); Alkaline Phosphatase 156 U/L (35-105); Anion Gap 18.9 (5-19); Aspartate Amino Transferase 93 U/L (0-32); Blood Urea Nitrogen 15 mg/dL (8-23); Calcium 9.5 mg/dL (8.5-10.5); Carbon Dioxide 21 mmol/L (22-29); Chloride 100 mmol/L (98-107); Globulin 3.8 g/dL (1.3-4.6); Glucose 141 mg/dL (65-115); NT Pro B Type Natriuretic Pept 1561 pg/mL (0-450); Osmolality Calculated 287 mOsm/kg (285-295); Sodium 137 mmol/L (136-145); Thyroid Stimulating Hormone 1.63 uIU/mL (0.27-4.20); Total Protein 7.2 g/dL (6.6-8.7)
[2025-06-21 11:33] LABS: Potassium 2.9 mmol/L (3.5-5.1)
[2025-06-21] MEDS: methylPREDNISolone sod succ 125 mg/2 mL INJ IVP (11:44)
[2025-06-21] MEDS: levofloxacin-dextrose 5 % 750 MG/150 ML PREMIX 100 MG IV (11:47)
[2025-06-21 12:08] LABS: Glucose Urine UA Negative (Normal); Nitrate Urine Negative (Negative); Specific Gravity, Urine 1.023 (1.005-1.030)
[2025-06-21 12:13] LABS: Add Urine Microscopic? YES
[2025-06-21 12:27] LABS: UA Slide Review UA Slide Review Perf
--- OUTSIDE RECORDS SUMMARY | 2025-06-21 12:30 | XMS_ITS | Clinical Summary ---
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
--- OUTSIDE RECORDS SUMMARY | 2025-06-21 12:30 | XMS_ITS | Encounter Summary ---
Author Organization [facility] Address [address] [place] [address] Care Team Providers Care Channel Opener Name Role Phone Unavailable Primary Care Provider Unavailabl e Encounter Details Date Type Department Care Team (Late st Contact Info) Description 02/16/2006 Emergency [facility] [address] 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 Electronically Signed By: Jaoquin Patterson M.D., Ph.D. Date Signed: 02/16/06 us [...]
--- OUTSIDE RECORDS SUMMARY | 2025-06-21 12:30 | XMS_ITS | Clinical Summary ---
Author Organization [facility] Address [address] [facility] [address] Attn: [place] [address] Care Team Providers Care Heel Padder Name Role Phone Unavailable Primary Care Provider Unavailabl e Encounters Date Type Department Care Team Description 06/04/2025 Abstract [facility] Th[facility] Head Ne[facility] [address] [place] [id number] Provider, Abstract from Last 3 Months Social History Tobacco Use Types Packs/Day Years Used Date Smoking Tobacco: Never Assessed Comments Unknown Sex and Gender Information Value Date Recorded Sex Assigned at Not on file Legal Sex Female 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
[2025-06-21 12:51] LABS: Respiratory Syncytial Virus Ce NEGATIVE (Negative); SARS-CoV-2 PCR NEGATIVE (Negative)
--- NOTE | 2025-06-21 13:51 | P.HP_ITS ---
Providers/Chief Complaint 2 Admitting Physician: Kenroy Lopez MD Primary Care Provider: Kevyn Jean, POLYMERIZATION HELPER-C Chief Complaint: ams History of Present Illness Zoila Rosario is a 80 year old female with PMH of HTN, CAD (s/p PCI- stenting), HLD, COPD, CKD (s/p nephrectomy 2010), psychiatric illness Patient presented to [facility] ED on 06/13/25 after being found down on living room floor for approximately 2 hours after a fall. Patient noted to have had recurrent falls over the past 4 days. She was seen in the ED day prior for hip pain. Her workup noted to have been concerning for UTI and pneumonia. She was discharged home on oral Levaquin. Unable to start medication. Over the past 24 hours is noted to have become delirious, confused and disoriented. Associated symptoms of a progressive productive cough. Patient known to have underlying COPD with oxygen dependence and baseline marked exertional dyspnea. Current everyday smoker, 1 pack/day. ED presentation & work-up Vital Signs T98.4 BP 186/76 HR 111 RR 17 SpO2 90% on 3L of oxygen Labs, 06/21/25 1050 Hemogram WBC 6.47 RBC 4.22 PLT 313 HGB 11.50 Chemistry Na 137 K 2.9 Cl 100 Ca 9.5 Glu 141 CO2 21 AG 18.9 BUN 15 Cr 1.1 AST 93 ALT 53 ALP 156 T.Bili 0.5 Cardiac NTproBNP 1561 Thyroid TSH 1.63 Urinalysis SG 1.023, protein (3+), ketones (1+), blood (3+) LE (1+), WBC (0-5), bacteria (4+) Viral Studies Influenza A/B (-), RSV (-), COVID (-) CXR: Peripheral ground-glass opacities in the lung bases with more confluent airspace disease in the left lower lobe and lingula. Pneumonia is of concern in the appropriate clinical presentation. CT HEAD: No acute intracranial abnormality. Review of Systems 2 General: Reports: 10 or more systems reviewed and unremarkable except in HPI and below Medications/Allergies Home Medications ?Medication ?Instructions ?Recorded ?Confirmed ?Last Taken ?Type nebulizers #1 ea 09/22/21 06/21/25 Unkn own Rx magnesium hydroxide 400 mg/5 mL 15 ml PO DAILY PRN con stipation 04/15/23 06/21/25 Unknown Rx oral suspension (Milk of Magnesia) #355 mL mupirocin 2 % topical ointment 1 applic topical TID MS N skin 10/13/24 06/21/25 Unknown Rx irritation #30 grams furosemide 20 mg tablet (Lasix) 20 mg PO QAM PRN weigh t gain #30 01/07/25 06/21/25 06/20/25 Rx tabs albuterol sulfate 90 mcg/actuation 2 puff inhalation Q ID #8.5 grams 04/06/25 06/21/25 Unknown Rx aerosol inhaler clopidogrel 75 mg tablet 75 mg PO DAILY #30 tabs 03/2506/21/25 06/20/25 Rx fluticasone fur. 100 mcg-umeclid 1 inh inhalation Q24H #60 ea 04/06/25 06/21/25 06/20/25 Rx 62.5 mcg-vilant 25 mcg inhalat.powder (Trelegy Ellipta) hydroxyzine pamoate 50 mg capsule 50 mg PO BID #60 cap s 04/06/25 06/21/25 06/20/25 Rx ketoconazole 2 % shampoo 1 applic topical .On Sun & riday 04/06/25 06/21/25 Unknown Rx #120 mL loratadine 10 mg tablet (Claritin) 10 mg PO DAILY #30 tabs 04/06/25 06/21/25 06/20/25 Rx losartan 100 mg tablet 100 mg PO DAILY #30 tabs 06/21/25 06/20/25 Rx metoprolol succinate 25 mg 25 mg PO DAILY #30 tabs 06/21/25 06/20/25 Rx tablet,extended release 24 hr olanzapine 5 mg tablet (Zyprexa) 5 mg PO .at supper ti me #30 tabs 04/06/25 06/21/25 06/20/25 Rx rosuvastatin 40 mg tablet (Crestor) 40 mg PO DAILY #30 tabs 04/06/25 06/21/25 06/20/25 Rx venlafaxine 150 mg 150 mg PO BEDTIME #30 caps 1 06/21/25 06/20/25 Rx capsule,extended release 24 hr (Effexor XR) calcipotriene 0.005 % topical 1 applic topical DAILY # 60 grams 04/23/25 06/21/25 Unknown Rx ointment nitroglycerin 0.4 mg sublingual 0.4 mg sublingual Q5M PRN chest 06/09/25 06/21/25 Unknown Rx tablet (Nitrostat) pain #25 tabs levofloxacin 750 mg tablet 750 mg PO DAILY 7 days #7 t abs 06/20/25 06/21/25 Unknown Rx diltiazem HCl 240 mg capsule,24 240 mg PO QPM 06/21/25 06/21/25 06/20/25 History hr,extended release (Tiazac) Allergies Allergy/AdvReac Type Severity Reaction Status Date / Time cephalexin (From Keflex) Allergy ADR-Nausea Verified 06/20/25 16:54 PFSH Acute 2 PFSH: Medical History (Updated 06/21/25 @ 20:21 by Angela Acuña NP) Single functional kidney History of borderline personality disorder Bipolar disorder Hard of hearing Anemia Weakness Acute hyponatremia CKD (chronic kidney disease) Chronic migraine Personal history of smoking Fibromyalgia Cervical disc disorder with myelopathy of mid-cervical region Anxiety with depression Arteriosclerotic heart disease (ASHD) COPD (chronic obstructive pulmonary disease) Mixed hyperlipidemia Environmental and seasonal allergies Essential hypertension Osteoarthritis, generalized Vitamin B 12 deficiency Vitamin D deficiency Surgical History History of cataract surgery Hx of right breast biopsy needle Biopsy synergistic History of hysterectomy with bilateral oophorectomy History of nephrectomy, left 2009 at [facility] History of heart artery stent LAD, 2011 left circumflex 2019 Family History Mother Cancer Father Alcoholism Other Heart disease Psychiatric illness Denies family history of Diabetes Social History Smoking and tobacco/nicotine status: current every day tobacco/nicotine user cigarettes Packs smoked per day: 1 Years cigarettes smoked: 40 Second hand smoke exposure: Yes Alcohol intake: current Alcohol intake frequency: few times a week Alcohol type: beer and hard liquor Substance/Drug Use: never Additional social history: patient has 3 biological children - one son has , another son lives in [place], a daughter lives elsewhere in [place] has children of his own Adopted: No Caregiver/support person: No Lives independently: Yes Household members: spouse Housing: House Marital status: Number of children: 3 service: No Current occupational status: retired and disabled Current occupational exposures/hazards: No Pets and animals: Yes Pets & animals: cat(s) and other Pets & animal details: guinea Do you think of yourself as: Straight/Heterosexual Current gender identity: Female Vitals/I&O/Wt Last Vital Signs Temp 98.4 F 06/21/25 10:29 Pulse 95 06/21/25 12:28 Resp 17 06/21/25 10:29 BP 170/67 06/21/25 12:28 Pulse Ox 100 06/21/25 12:28 O2 Del Method Nasal Cannula 06/21/25 10:29 O2 Flow Rate 3 06/21/25 10:29 Weight last 48 hrs Weight 68.039 kg Physical Exam 2 Narrative: Constitutional * NAD. Unkept appearing. Neurologic * Awake and alert. Oriented x3. * No facial asymmetry, unilateral weakness or speech deficits. Head * Normocephalic. Atraumatic. Eyes * PERRLA. EOMI Ears, Nose, Throat * Normal external ears. Very hard of hearing. * Normal external nose. No epistaxis. * MMM Respiratory * Crackles RML, RLL and Rales LLL * No dyspnea at rest and with conversation. * On room air. Heart / Cardiovascular * Regular * No murmur Extremities * No edema bilaterally * Distal pulses 2+ and symmetric. No cyanosis. * Sensation intact to light touch. Abdomen / Gastrointestinal * Soft. Non-tender. Non-distended. + BS. Genitourinary * No suprapubic tenderness Musculoskeletal * No gross deformities, asymmetry, swelling or muscle atrophy on observation * Full ROM in all major joints without pain * Strength 5/5 throughout in bilateral upper and lower extremities Skin / Integumentary * Lower extremities with with abrasions Data 06/21/25 10:50 06/21/25 10:50 Other Labs: I have personally reviewed below listed labs that were done in ED on presentation. Labs, 06/21/25 1050 Hemogram WBC 6.47 RBC 4.22 PLT 313 HGB 11.50 Chemistry Na 137 K 2.9 Cl 100 Ca 9.5 Glu 141 CO2 21 AG 18.9 BUN 15 Cr 1.1 AST 93 ALT 53 ALP 156 T.Bili 0.5 Cardiac NTproBNP 1561 Thyroid TSH 1.63 Urinalysis SG 1.023, protein (3+), ketones (1+), blood (3+) LE (1+), WBC (0-5), bacteria (4+) Viral Studies Influenza A/B (-), RSV (-), COVID (-) Micro: Microbiology 06/21/25 11:23 Blood Culture - Preliminary Blood SPECIMEN COLLECTED 06/21/25 11:22 Blood Culture - Preliminary Blood SPECIMEN COLLECTED A&P Assessment and plan 1. Left lower lobe pneumonia: 2. Acute respiratory failure with hypoxia: Plan: # LLL pneumonia - continue levaquin - Blood Cx pending - Additional labs: respiratory viral panel, PCT, CRP, sputum culture, legionella, MRSA - AM labs: CBC, CMP - Respiratory assess and treat - Oxygen protocol - Incentive spirometer & flutter valve # Acute on chronic COPD exacerbation # Acute hypoxic respiratory failure Not oxygen dependent at baseline - check ABG, NT-proBNP - see PNA plan of care - may need to get an echo on her # Acute encephalopathy Encephalopathy of acute onset. CT Head without acute intracranial findings. - neuro checks # Hypokalemia K 2.9 - Add-on Mg - Received 40 mEq KCl in ED # Primary HTN - BP elevated, trend - Resume MANAGER CABLE meds Losartan 100 mg daily Metoprolol succinate 25 mg daily # CAD s/p PCI Denies angina symptoms - MANAGER CABLE on clopidogrel 75 mg daily, continue # CKD 3A Baseline Cr 1.0-1.2 - at baseline, continue trending # Dyslipidemia - MANAGER CABLE on rosuvastatin 40 mg daily, continue # Transaminitis - AST 93 ALT 53, mild elevation, trend # Tobacco dependence with current use Currently smokes 1 ppd - Nicotine patch PDMP PDMP Reviewed: Not Reviewed Attestations 2 Medical Necessity Statement*: Admitted under inpatient status. Given complexity of patient's presentation, co-morbid conditions, and required intensity of treatment, a hospitalization exceeding two midnights is anticipated. Coding Level of Care Code 93298 Diagnoses Left lower lobe pneumonia J18.9 Acute respiratory failure with hypoxia J96.01
[2025-06-21 15:45] LABS: Magnesium 2.5 mg/dL (1.7-2.3)
[2025-06-21 16:49] LABS: ABG PCO2 32.8 mmHg (35-45); ABG PH Result 7.41 (7.35-7.45); Arterial Blood Gas Hematocrit 47.2 % (37-47); Blood Gas Allen Test Pos; Blood Gas LPM 3.0 %; Blood Gas Operator Identificat glc; Blood Gas Sample Site Radial, right; Blood Gas Sample Type Arterial; HCO3 ABG 20.7 mmol/L (22-26); PO2 ABG 77.3 mmHg (80.0-100.0); PO2 FiO2 Ratio Arterial Blood 241
--- NOTE | 2025-06-21 17:00 | PC.NURSE ---
family spoke to technical report writer and wanted to check to make sure husbands phone number was accurate. Jorge Rosario .
[2025-06-21 17:46] LABS: MRSA PCR OZH (swab) NOT DETECTED (Not Detecte)
[2025-06-21] MEDS: FUROsemide 10 mg/mL SDV 2mL 20 MG IVP (18:19)
[2025-06-21 18:27] LABS: Coronavirus 229E,HKU1,NL63,OC4 Not Detected (NOT DETECT); Parainfluenza Virus Type 1 Not Detected (NOT DETECT); Parainfluenza Virus Type 2 Not Detected (NOT DETECT); Parainfluenza Virus Type 3 Not Detected (NOT DETECT); Parainfluenza Virus Type 4 Not Detected (NOT DETECT); SARS-COV-2 Not Detected (NOT DETECT)
[2025-06-22] VITALS (12 sets, daily range): BP systolic 98–176; BP diastolic 50–79; PULSE 70–118; RESP 16–177; TEMP 36.6–37.6; O2SAT 93–98; BMI 27.3
[2025-06-22 04:00] LABS: Hematocrit 34.0 % (36-47); Hemoglobin 11.00 g/dL (11.27-16.99); Mean Corpuscular HGB Conc 32.4 g/dL (30-55); Mean Corpuscular Hemoglobin 27.2 pg (27-33); Mean Corpuscular Volume 84.2 fl (85-98); Nucleated Red Blood Cells % 0 %; Platelet Count 295 10^3/cmm (157-399); Red Blood Count 4.04 10^6/uL (3.85-5.65); White Blood Count 6.33 10^3/uL (3.29-11.43)
[2025-06-22 04:16] LABS: Alanine Aminotransferase 52 U/L (0-33); Albumin Level 3.5 g/dL (3.5-5.2); Alkaline Phosphatase 154 U/L (35-105); Anion Gap 20.7 (5-19); Aspartate Amino Transferase 73 U/L (0-32); Blood Urea Nitrogen 22 mg/dL (8-23); Calcium 9.7 mg/dL (8.5-10.5); Carbon Dioxide 21 mmol/L (22-29); Chloride 104 mmol/L (98-107); Globulin 3.3 g/dL (1.3-4.6); Glucose 123 mg/dL (65-115); Osmolality Calculated 299 mOsm/kg (285-295); Potassium 3.7 mmol/L (3.5-5.1); Sodium 142 mmol/L (136-145); Total Protein 6.8 g/dL (6.6-8.7)
[2025-06-22] MEDS: LOSARTAN 100 MG TABLET PO (05:08)
[2025-06-22] MEDS: metoprolol succinate ER (24 HR) 25 mg Tablet PO (05:08)
--- NOTE | 2025-06-22 09:23 | PC.CHAP ---
Pastoral Care Encounter/Spiritual Assessment Type of Contact [] Declined river crossing supervisor visit [] Patient/Family/Request visit [] Outpatient visit [] Follow-up visit [] Physician referral [] Code/Alert [x] Routine visit [] Staff referral [] Actively dying [] Patient sleeping [] Family support [] [] Out of room [] Palliative care [] [x] Receiving care in room [] Pre-surgical visit [] Trauma [] Long length of stay [] ICU visit [] Other: Relational/Emotional Strength [] Patient feels connected with others/family/visitors/staff [] Distress [] Loneliness/isolation [] Abandonment Spirituality of Patient [] Person of Sandra [] Attends Religion of their Sandra [] Believes in Prayer [] Reads Bible or Quaker materials [] There are Spiritual issues to be addressed Machine Rope Maker Interventions [x] Prayer [] Active listening [] Non-anxious presence [] Spiritual/emotional support [] Crisis/trauma care [] Spiritual counseling [] Bereavement support [] Provided bereavement packet [] Provided Bible/devotional materials [] Provided toy/stuffed animal, coloring book to patient or family member [] Provided Communion [] Anointing/[place] [] Salvation [] Completed spiritual assessment [] Other: Impact on Illness or Injury [] Angry [] Fearful [] Anxious [] Often cries [] Exhaustion [] Unable to work [] Unable to attend religion [] Unable to walk/stand [] Unable to read [] Unable to drive [] Unable to eat/drink [] Unable to sleep [] Unable to be with family [] Patient intubated [] Other: Summary Time spent with patient
--- NOTE | 2025-06-22 11:49 | P.PN_ITS ---
Subjective 2 Subjective: Patient is a very pleasant 80-year-old female seen and examined at bedside on hospital rounds today. Patient sitting up in bedside chair stating that she feels very weak, orientation x 2-3 fluctuating but much improved over admission per reports. Patient continues to have shortness of breath and cough. Patient's spouse and son at the bedside stating that patient has had multiple falls at home on concrete floor and they are worried with her increasing weakness that she is going to significantly injure herself at home. Pending physical therapy and Occupational Therapy evaluation and recommendations. Review of vital signs: Blood pressure 148/79, pulse 105, respirations 16, temperature 98.0 ?F, O2 sat 95% on supplemental oxygen 2L/min via nasal cannula. Review of labs normal WBC 6.33, hemoglobin 11.00, BUN 22, creatinine 1.2, AST 73, ALT 52, alk phos 154. Vitals/I&O/Wt Last Vital Signs Temp 98.0 F 06/22/25 11:11 Pulse 105 H 06/22/25 11:11 Resp 16 06/22/25 11:11 BP 148/79 06/22/25 11:11 Pulse Ox 95 06/22/25 11:11 O2 Del Method Nasal Cannula 06/22/25 11:11 O2 Flow Rate 3 06/22/25 09:08 06/21/25 06/22/25 06/22/25 22:59 06:59 14:59 Intake Total 270 / 270 360 / 630 120 / 120 Balance 270 / 270 360 / 630 120 / 120 Weight last 48 hrs Weight 72.348 kg Weight 68.039 kg Weight 68.039 kg Physical Exam 2 Narrative: Constitutional * NAD. Unkept appearing. Neurologic * Awake and alert. Oriented x3. * No facial asymmetry, unilateral weakness or speech deficits. Head * Normocephalic. Atraumatic. Eyes * PERRLA. EOMI Ears, Nose, Throat * Normal external ears. Very hard of hearing. * Normal external nose. No epistaxis. * MMM Respiratory * Crackles RML, RLL and Rales LLL * Diminished at the bases. * Supplemental oxygen 2 L/min via nasal cannula. Heart / Cardiovascular * Regular * No murmur Extremities * No edema bilaterally * Distal pulses 2+ and symmetric. No cyanosis. * Sensation intact to light touch, generalized weakness. Abdomen / Gastrointestinal * Soft. Non-tender. Non-distended. + BS. Genitourinary * No suprapubic tenderness Musculoskeletal * No gross deformities, asymmetry, swelling or muscle atrophy on observation * Full ROM in all major joints without pain * Strength 5/5 throughout in bilateral upper extremities, generalized weakness. Skin / Integumentary * Lower extremities with with abrasions Data 06/22/25 03:28 06/22/25 03:28 Micro: Microbiology 06/21/25 11:23 Blood Culture - Preliminary Blood NEGATIVE TO DATE 06/21/25 11:22 Blood Culture - Preliminary Blood NEGATIVE TO DATE 06/21/25 11:58 Urine Culture - Final Urine,Clean Catch 06/21/25 11:58 Legionella Urinary Antigen - Final Urine Catheterized A&P Assessment and plan 1. Left lower lobe pneumonia: 2. Acute respiratory failure with hypoxia: Plan: # LLL pneumonia - continue levaquin - Blood Cx pending - Pending respiratory panel - Respiratory assess and treat - Oxygen protocol - Incentive spirometer & flutter valve # Acute on chronic COPD exacerbation # Acute hypoxic respiratory failure Not oxygen dependent at baseline - see PNA plan of care - Pending echo # Acute encephalopathy Encephalopathy of acute onset, improving mentation. CT Head without acute intracranial findings. - neuro checks - Fall precautions # Hypokalemia, resolved K 2.9--<3.7 - Received 40 mEq KCl in ED - Monitor and replenish. # Primary HTN - BP elevated, trend - Continue WOUND/OSTOMY NURSE meds Losartan 100 mg daily Metoprolol succinate 25 mg daily # CAD s/p PCI Denies angina symptoms - WOUND/OSTOMY NURSE on clopidogrel 75 mg daily, continue # CKD 3A Baseline Cr 1.0-1.2 - at baseline, continue trending # Dyslipidemia - WOUND/OSTOMY NURSE on rosuvastatin 40 mg daily, continue # Transaminitis - AST 93--<73, ALT 53--<52, alk phos 156--<154 # Tobacco dependence with current use Currently smokes 1 ppd - Nicotine patch - Total cessation advised PDMP PDMP Reviewed: Not Reviewed Attestations 2 Medical Necessity Statement*: Admitted under inpatient status. Given complexity of patient's presentation, co-morbid conditions, and required intensity of treatment, continued hospitalization crossing 2 midnights required. Coding Level of Care Code 94885 Diagnoses Left lower lobe pneumonia J18.9 Acute respiratory failure with hypoxia J96.01
[2025-06-22] MEDS: dilTIAZem ER (24HR) 240 mg Capsule PO (16:37)
[2025-06-22] MEDS: venlafaxine ER (24HR) 150 mg Capsule PO (21:05)
[2025-06-23] VITALS (14 sets, daily range): BP systolic 105–180; BP diastolic 64–72; PULSE 87–99; RESP 14–18; TEMP 36.5–37.4; O2SAT 88–97
[2025-06-23] MEDS: metoprolol succinate ER (24 HR) 25 mg Tablet PO (04:35)
[2025-06-23] MEDS: LOSARTAN 100 MG TABLET PO (04:35)
--- NOTE | 2025-06-23 09:58 | PC.CHAP ---
Pastoral Care Encounter/Spiritual Assessment Type of Contact [] Declined earth science technician visit [] Patient/Family/Request visit [] Outpatient visit [] Follow-up visit [] Physician referral [] Code/Alert [x] Routine visit [] Staff referral [] Actively dying [] Patient sleeping [] Family support [] [] Out of room [] Palliative care [] [] Receiving care in room [] Pre-surgical visit [] Trauma [] Long length of stay [] ICU visit [] Other: Relational/Emotional Strength [] Patient feels connected with others/family/visitors/staff [] Distress [x] Loneliness/isolation [] Abandonment Spirituality of Patient [x] Person of Sandra [] Attends Voodoo of their Sandra [x] Believes in Prayer [] Reads Bible or Sabianism materials [] There are Spiritual issues to be addressed Resident Services Coordinator Interventions [x] Prayer [] Active listening [x] Non-anxious presence [x] Spiritual/emotional support [] Crisis/trauma care [] Spiritual counseling [] Bereavement support [] Provided bereavement packet [] Provided Bible/devotional materials [] Provided toy/stuffed animal, coloring book to patient or family member [] Provided Communion [] Anointing/[place] [] Salvation [] Completed spiritual assessment [] Other: Impact on Illness or Injury [] Angry [] Fearful [] Anxious [] Often cries [] Exhaustion [] Unable to work [] Unable to attend advent [] Unable to walk/stand [] Unable to read [] Unable to drive [] Unable to eat/drink [] Unable to sleep [] Unable to be with family [] Patient intubated [] Other: Summary Time spent with patient 5 min
[2025-06-23] MEDS: levofloxacin-dextrose 5 % 750 MG/150 ML PREMIX 100 MG IV (12:53)
--- NOTE | 2025-06-23 13:00 | P.PN_ITS ---
Subjective 2 Subjective: Patient is a very pleasant 80-year-old female seen and examined at bedside on hospital rounds today. Patient sitting up in bed with much improved mentation, family at the bedside with concerns over continued weakness and falls at home. Patient is reluctant to go to SNF however she realizes that she is weak and continues to have falls at home and that this would be the best option for her. Greatly appreciate case management and coordination of discharge planning, referral to SNF pending. Patient denies new or worsening symptoms. Vital signs stable: Blood pressure 105/68, pulse 89, respirations 14, temperature 97.8 ?F, O2 sat 95% on room air. Pending labs. Vitals/I&O/Wt Last Vital Signs Temp 97.8 F 06/23/25 16:00 Pulse 89 06/23/25 16:00 Resp 14 06/23/25 16:00 BP 105/68 06/23/25 16:00 Pulse Ox 95 06/23/25 15:54 O2 Del Method Room Air 06/23/25 15:54 O2 Flow Rate 2 06/23/25 01:18 06/23/25 06/23/25 06/23/25 06:59 14:59 22:59 Intake Total 860 / 1820 270 / 270 Balance 860 / 1820 270 / 270 Weight last 48 hrs Weight 72.121 kg Weight 72.348 kg Physical Exam 2 Narrative: Constitutional * NAD. Neurologic * Awake and alert. Oriented x3. * No facial asymmetry, unilateral weakness or speech deficits. Head * Normocephalic. Atraumatic. Eyes * PERRLA. EOMI Ears, Nose, Throat * Normal external ears. Very hard of hearing. * Normal external nose. No epistaxis. * MMM Respiratory * Crackles RML, RLL and Rales LLL * Diminished at the bases. * Supplemental oxygen 2 L/min via nasal cannula. Heart / Cardiovascular * Regular * No murmur Extremities * No edema bilaterally * Distal pulses 2+ and symmetric. No cyanosis. * Sensation intact to light touch, generalized weakness. Abdomen / Gastrointestinal * Soft. Non-tender. Non-distended. + BS. Genitourinary * No suprapubic tenderness Musculoskeletal * No gross deformities, asymmetry, swelling or muscle atrophy on observation * Full ROM in all major joints without pain * Strength 5/5 throughout in bilateral upper extremities, generalized weakness. Skin / Integumentary * Lower extremities with with abrasions Data 06/22/25 03:28 06/22/25 03:28 Micro: Microbiology 06/22/25 05:09 Gram Stain - Final Sputum - Expectorated Sputum Sputum Culture - Preliminary A&P Assessment and plan 1. Left lower lobe pneumonia: 2. Acute respiratory failure with hypoxia: Plan: # LLL pneumonia - continue levaquin - Blood Cx NGTD - Pending respiratory panel, currently with normal genoveva - Respiratory assess and treat - Oxygen protocol - Incentive spirometer & flutter valve # Acute on chronic COPD exacerbation # Acute hypoxic respiratory failure, resolved Not oxygen dependent at baseline - see PNA plan of care # Acute metabolic encephalopathy, resolved Encephalopathy of acute onset, improving mentation. CT Head without acute intracranial findings. - neuro checks - Fall precautions # Hypokalemia, resolved K 2.9--<3.7 - Received 40 mEq KCl in ED - Monitor and replenish. # Primary HTN - BP elevated, trend - Continue BASS SINGER meds Losartan 100 mg daily Metoprolol succinate 25 mg daily # CAD s/p PCI Denies angina symptoms - BASS SINGER on clopidogrel 75 mg daily, continue # CKD 3A Baseline Cr 1.0-1.2 - at baseline, continue trending # Dyslipidemia - BASS SINGER on rosuvastatin 40 mg daily, continue # Transaminitis - AST 93--<73, ALT 53--<52, alk phos 156--<154 # Tobacco dependence with current use Currently smokes 1 ppd - Nicotine patch - Total cessation advised PDMP PDMP Reviewed: Not Reviewed Attestations 2 Medical Necessity Statement*: Admitted under inpatient status. Given complexity of patient's presentation, co-morbid conditions, and required intensity of treatment, continued hospitalization crossing 2 midnights required. Coding Level of Care Code 47601 Diagnoses Left lower lobe pneumonia J18.9 Acute respiratory failure with hypoxia J96.01
[2025-06-23] MEDS: dilTIAZem ER (24HR) 240 mg Capsule PO (17:03)
[2025-06-23] MEDS: venlafaxine ER (24HR) 150 mg Capsule PO (20:43)
[2025-06-24 04:00] VITALS: BP 127/84; PULSE 92; RESP 17; TEMP 36.9; O2SAT 94
[2025-06-24] MEDS: LOSARTAN 100 MG TABLET PO (05:15)
[2025-06-24] MEDS: metoprolol succinate ER (24 HR) 25 mg Tablet PO (05:16)
[2025-06-24 05:47] LABS: Hematocrit 35.1 % (36-47); Hemoglobin 11.10 g/dL (11.27-16.99); Mean Corpuscular HGB Conc 31.6 g/dL (30-55); Mean Corpuscular Hemoglobin 27.1 pg (27-33); Mean Corpuscular Volume 85.6 fl (85-98); Nucleated Red Blood Cells % 0 %; Platelet Count 330 10^3/cmm (157-399); Red Blood Count 4.10 10^6/uL (3.85-5.65); White Blood Count 10.87 10^3/uL (3.29-11.43)
[2025-06-24 06:04] LABS: Magnesium 2.3 mg/dL (1.7-2.3)
[2025-06-24 06:10] LABS: Alanine Aminotransferase 62 U/L (0-33); Albumin Level 3.2 g/dL (3.5-5.2); Alkaline Phosphatase 159 U/L (35-105); Anion Gap 17.1 (5-19); Aspartate Amino Transferase 68 U/L (0-32); Blood Urea Nitrogen 15 mg/dL (8-23); Calcium 9.2 mg/dL (8.5-10.5); Carbon Dioxide 23 mmol/L (22-29); Chloride 101 mmol/L (98-107); Creatinine Clr Calc Pharmacy 2.6724; Globulin 2.5 g/dL (1.3-4.6); Glucose 213 mg/dL (65-115); Osmolality Calculated 293 mOsm/kg (285-295); Potassium 3.1 mmol/L (3.5-5.1); Sodium 138 mmol/L (136-145); Total Protein 5.7 g/dL (6.6-8.7)
[2025-06-24 08:24] VITALS: BP 169/72; PULSE 83; RESP 16; TEMP 36.8; O2SAT 94
--- NOTE | 2025-06-24 08:32 | PC.SOCIAL ---
IMM Updated Updated pt on IMM. No questions voiced. Provided pt a copy. Initialed, dated, & timed a copy & placed in chart.
[2025-06-24 09:10] VITALS: O2SAT 92
--- NOTE | 2025-06-24 10:17 | P.DS_ITS ---
Discharge Providers Date of Admission: 06/21/25 11:51 Date of Discharge: June 24, 2025 Attending Provider at Admission: Kenroy Lopez MD Attending Provider at Discharge: Zaira Kirby NP Primary Care Provider: OMID Hernandez Diagnoses at Discharge Discharge Diagnosis 1. Left lower lobe pneumonia: 2. Acute respiratory failure with hypoxia: Reason for Visit Reason for Visit: ams Brief History: Admission: Zoila Rosario is a 80 year old female with PMH of HTN, CAD (s/p PCI-stenting), HLD, COPD, CKD (s/p nephrectomy 2009), psychiatric illness Patient presented to [facility] ED on 06/13/25 after being found down on living room floor for approximately 2 hours after a fall. Patient noted to have had recurrent falls over the past 4 days. She was seen in the ED day prior for hip pain. Her workup noted to have been concerning for UTI and pneumonia. She was discharged home on oral Levaquin. Unable to start medication. Over the past 24 hours is noted to have become delirious, confused and disoriented. Associated symptoms of a progressive productive cough. Patient known to have underlying COPD with oxygen dependence and baseline marked exertional dyspnea. Current everyday smoker, 1 pack/day. Hospital Course Hospital Course 1. Left lower lobe pneumonia: 2. Acute respiratory failure with hypoxia: Plan: # LLL pneumonia - continue levaquin, transitioned to oral - Blood Cx NGTD - Pending respiratory panel, currently with normal genoveva - Respiratory assess and treat - Oxygen protocol - Incentive spirometer & flutter valve # Acute on chronic COPD exacerbation # Acute hypoxic respiratory failure, resolved Not oxygen dependent at baseline - see PNA plan of care # Acute metabolic encephalopathy, resolved Encephalopathy of acute onset, improving mentation. CT Head without acute intracranial findings. - neuro checks - Fall precautions # Hypokalemia K 2.9--<3.7--<3.1 - Given 40 mEq KCl every 6 hours x 2 - Monitor and replenish. # Primary HTN - BP elevated, trend - Continue SIEVE GRADER TENDER meds Losartan 100 mg daily Metoprolol succinate 25 mg daily # CAD s/p PCI Denies angina symptoms - SIEVE GRADER TENDER on clopidogrel 75 mg daily, continue # CKD 3A Baseline Cr 1.0-1.2 - at baseline, continue trending # Dyslipidemia - SIEVE GRADER TENDER on rosuvastatin 40 mg daily, continue # Transaminitis - AST 93--<73, ALT 53--<52, alk phos 156--<154 # Tobacco dependence with current use Currently smokes 1 ppd - Nicotine patch - Total cessation advised Discharge: Discharges in stable condition via transport to [facility] for continued PT/OT interventions to strengthen the patient. Patient continues oral antibiotic therapy x 4 more days for a total of 7 days of treatment. Advised to follow-up with primary care provider in 1 to 2 days of discharge this can be done at the [facility] with the [facility] provider. Physical Exam Narrative: Constitutional * NAD. Neurologic * Awake and alert. Oriented x3. * No facial asymmetry, unilateral weakness or speech deficits. Head * Normocephalic. Atraumatic. Eyes * PERRLA. EOMI Ears, Nose, Throat * Normal external ears. Very hard of hearing. * Normal external nose. No epistaxis. * MMM Respiratory * Crackles RML, RLL and Rales LLL * Diminished at the bases. * Supplemental oxygen 2 L/min via nasal cannula. Heart / Cardiovascular * Regular * No murmur Extremities * No edema bilaterally * Distal pulses 2+ and symmetric. No cyanosis. * Sensation intact to light touch, generalized weakness. Abdomen / Gastrointestinal * Soft. Non-tender. Non-distended. + BS. Genitourinary * No suprapubic tenderness Musculoskeletal * No gross deformities, asymmetry, swelling or muscle atrophy on observation * Full ROM in all major joints without pain * Strength 5/5 throughout in bilateral upper extremities, generalized weakness. Skin / Integumentary * Lower extremities with with abrasions Discharge Data Studies Completed and Pending Completed Studies During Hospitalization Category Date Time Status CT head wo con* [id number] Stat Cat Scan 06/21/25 10:33 Completed XR chest 1V portable [id number] Stat Exams 06/21/25 10:33 Completed Pending at discharge Category Date Time Status Blood Culture Stat Lab 06/21/25 11:23 Results Sputum Culture and Gram Stain Routine Lab 06/22/25 05:09 Results Radiology Impressions Chest X-Ray 06/21/25 10:33 IMPRESSION: Peripheral ground-glass opacities in the lung bases with more confluent airspace disease in the left lower lobe and lingula. Pneumonia is of concern in the appropriate clinical presentation. Head CT 06/21/25 10:33 IMPRESSION: No acute intracranial abnormality. Laboratory Results WBC 10.87 10^3/uL (3.29-11.43) 06/24/25 05:37 RBC 4.10 10^6/uL (3.85-5.65) 06/24/25 05:37 Hgb 11.10 g/dL (11.27-16.99) L 06/24/25 05:37 Hct 35.1 % (36-47) L 06/24/25 05:37 MCV 85.6 fl (85-98) 06/24/25 05:37 MCH 27.1 pg (27-33) 06/24/25 05:37 MCHC 31.6 g/dL (30-55) 06/24/25 05:37 RDW 17.1 % (12.1-15.1) H 06/24/25 05:37 Plt Count 330 10^3/cmm (157-399) 06/24/25 05:37 MPV 9.2 fL (7.4-10.4) 06/24/25 05:37 Neut % (Auto) 74.2 % 06/24/25 05:37 Lymph % (Auto) 15.7 % 06/24/25 05:37 [place] % (Auto) 6.1 % 06/24/25 05:37 Eos % (Auto) 0.6 % 06/24/25 05:37 Baso % (Auto) 0.3 % 06/24/25 05:37 Neut # (Auto) 8.06 10^3/uL (1.8-7.7) H 06/24/25 05:37 Lymph # (Auto) 1.7 10^3/uL (0.8-4.8) 06/24/25 05:37 [place] # (Auto) 0.7 10^3/uL (0.2-0.9) 06/24/25 05:37 Eos # (Auto) 0.1 10^3/uL (0.0-0.8) 06/24/25 05:37 Baso # (Auto) 0.0 10^3/uL (0.0-0.1) 06/24/25 05:37 Nucleated RBC % (auto) 0 % 06/24/25 05:37 Nucleated RBCs # 0.0 /100WBC 06/24/25 05:37 Specimen Type Arterial 06/21/25 16:37 Sample Site Radial, right 06/21/25 16:37 ABG pH 7.41 (7.35-7.45) 06/21/25 16:37 ABG pCO2 32.8 mmHg (35-45) L 06/21/25 16:37 ABG pO2 77.3 mmHg (80.0-100.0) L 06/21/25 16:37 ABG PO2/FiO2 Ratio 241 06/21/25 16:37 ABG HCO3 20.7 mmol/L (22-26) L 06/21/25 16:37 ABG Base Excess -3.0 mmol/L (-2.0-2.0) L 06/21/25 16:37 Christiano Test Pos 06/21/25 16:37 Hematocrit 47.2 % (37-47) H 06/21/25 16:37 O2 Delivery Device Nc 06/21/25 16:37 O2 Liters/Min 3.0 % 06/21/25 16:37 FiO2 32.0 % 06/21/25 16:37 Overlock Collar Setter ID glc 06/21/25 16:37 Sodium 138 mmol/L (136-145) 06/24/25 05:37 Potassium 3.1 mmol/L (3.5-5.1) L 06/24/25 05:37 Chloride 101 mmol/L (98-107) 06/24/25 05:37 Carbon Dioxide 23 mmol/L (22-29) 06/24/25 05:37 Anion Gap 17.1 (5-19) 06/24/25 05:37 BUN 15 mg/dL (8-23) 06/24/25 05:37 Creatinine 1.1 mg/dL (0.5-0.9) H 06/24/25 05:37 GFR Calculation Not Reportable 06/24/25 05:37 Glucose 213 mg/dL (65-115) H 06/24/25 05:37 Calculated Osmolality 293 mOsm/kg (285-295) 06/24/25 05:37 Calcium 9.2 mg/dL (8.5-10.5) 06/24/25 05:37 Magnesium 2.3 mg/dL (1.7-2.3) 06/24/25 05:37 Total Bilirubin 0.4 mg/dL (0.15-1.2) 06/24/25 05:37 AST 68 U/L (0-32) H 06/24/25 05:37 ALT 62 U/L (0-33) H 06/24/25 05:37 Alkaline Phosphatase 159 U/L (35-105) H 06/24/25 05:37 NT-Pro-B Natriuret Pep 1561 pg/mL (0-450) H 06/21/25 10:50 Total Protein 5.7 g/dL (6.6-8.7) L 06/24/25 05:37 Albumin 3.2 g/dL (3.5-5.2) L 06/24/25 05:37 Globulin 2.5 g/dL (1.3-4.6) 06/24/25 05:37 TSH 1.63 uIU/mL (0.27-4.20) 06/21/25 10:50 Urine Color Yellow (Yellow) 06/21/25 11:58 Urine Appearance Cloudy (CLEAR) A 06/21/25 11:58 Urine pH 5.5 (5-7) 06/21/25 11:58 Ur Specific [place] 1.023 (1.005-1.030) 06/21/25 11:58 Urine Protein 3+ (Negative) A 06/21/25 11:58 Urine Glucose (UA) Negative (Normal) 06/21/25 11:58 Urine Ketones 1+ (Negative) H 06/21/25 11:58 Urine Blood 3+ (Negative) A 06/21/25 11:58 Urine Nitrate Negative (Negative) 06/21/25 11:58 Urine Bilirubin Negative (Negative) 06/21/25 11:58 Urine Urobilinogen 2.0 mg/dL (Negative) H 06/21/25 11:58 Ur Leukocyte Esterase 1+ (Negative) A 06/21/25 11:58 Urine RBC 3-5 /hpf (0-2) 06/21/25 11:58 Urine WBC 0-5 /hpf (0-5) 06/21/25 11:58 Ur Squamous Epith Cells 6-10 /hpf (0-5) 06/21/25 11:58 Amorphous Sediment Not Reportable 06/21/25 11:58 Urine Bacteria 4+ /hpf (NONE) H 06/21/25 11:58 Hyaline Casts 15.28 /lpf 06/21/25 11:58 Nasal MRSA (PCR) Not detected (Not Detecte) 06/21/25 16:30 Adenovirus (PCR) Not detected (NOT DETECT) 06/21/25 16:30 C. pneumoniae DNA (PCR) Not detected (NOT DETECT) 06/21/25 16:30 Coronavirus 229E (PCR) Not detected (NOT DETECT) 06/21/25 16:30 Human Metapneumovir PCR Not detected (NOT DETECT) 06/21/25 16:30 Influenza A (H1) PCR Not detected (NOT DETECT) 06/21/25 16:30 Influenza A (PCR) Negative (Negative) 06/21/25 12:09 Influ A (H1/09) PCR Not detected (NOT DETECT) 06/21/25 16:30 Influenza A (H3) PCR Not detected (NOT DETECT) 06/21/25 16:30 Influenza Type A (PCR) Not detected (NOT DETECT) 06/21/25 16:30 Influenza Type B (PCR) Not detected (NOT DETECT) 06/21/25 16:30 M. pneumoniae (PCR) Not detected (NOT DETECT) 06/21/25 16:30 Parainfluenza 1 (PCR) Not detected (NOT DETECT) 06/21/25 16:30 Parainfluenza 2 (PCR) Not detected (NOT DETECT) 06/21/25 16:30 Parainfluenza 3 (PCR) Not detected (NOT DETECT) 06/21/25 16:30 Parainfluenza 4 (PCR) Not detected (NOT DETECT) 06/21/25 16:30 RSV (PCR) Negative (Negative) 06/21/25 12:09 RSV Type A (PCR) Not detected (NOT DETECT) 06/21/25 16:30 RSV Type B (PCR) Not detected (NOT DETECT) 06/21/25 16:30 Entero/Rhino (PCR) Not detected (NOT DETECT) 06/21/25 16:30 SARS-CoV-2 (PCR) Not detected (NOT DETECT) 06/21/25 16:30 Vitals Last Vital Signs Temp 98.3 F 06/24/25 08:24 Pulse 83 06/24/25 08:24 Resp 16 06/24/25 08:24 BP 169/72 06/24/25 08:24 Pulse Ox 92 06/24/25 09:10 O2 Del Method Nasal Cannula 06/24/25 08:24 O2 Flow Rate 2 06/24/25 09:10 Discharge Plan Discharge Patient Disposition: Xfer [facility] Condition: Stable Prescriptions: New budesonide 0.5 mg/2 mL Suspension For Nebulization 0.5 mg inhalation BID.RESPIRATORY 30 Days Qty: 120 0RF albuterol sulfate 2.5 mg/0.5 mL Solution For Nebulization 2.5 mg inhalation Q4H.RESPIRATORY PRN (Reason: Shortness Of Breath) 30 Days Qty: 30 0RF levofloxacin 500 mg tablet 500 mg PO DAILY 5 Days Qty: 5 0RF Continued (DME) nebulizers Misc See Rx Instructions .ROUTE .MEDSUPPLY Qty: 1 0RF Rx Instructions: As directed clopidogrel 75 mg tablet 75 mg PO DAILY Qty: 30 5RF hydroxyzine pamoate 50 mg capsule 50 mg PO BID Qty: 60 5RF ketoconazole 2 % shampoo 1 applic topical .On Sun & Sunday Qty: 120 2RF loratadine [Claritin] 10 mg tablet 10 mg PO DAILY Qty: 30 5RF losartan 100 mg tablet 100 mg PO DAILY Qty: 30 5RF metoprolol succinate 25 mg tablet extended release 24 hr 25 mg PO DAILY Qty: 30 5RF olanzapine [Zyprexa] 5 mg tablet 5 mg PO .at supper time Qty: 30 5RF rosuvastatin [Crestor] 40 mg tablet 40 mg PO DAILY Qty: 30 5RF venlafaxine [Effexor XR] 150 mg capsule,extended release 24hr 150 mg PO BEDTIME Qty: 30 5RF calcipotriene 0.005 % ointment 1 applic topical DAILY Qty: 60 0RF Rx Instructions: rub in gently on scalp magnesium hydroxide [Milk of Magnesia] 400 mg/5 mL suspension 15 ml PO DAILY PRN (Reason: constipation) Qty: 355 0RF mupirocin 2 % ointment 1 applic TOPICAL TID PRN (Reason: skin irritation) Qty: 30 2RF Rx Instructions: use on skin abrasion neck, back and thigh furosemide [Lasix] 20 mg tablet 20 mg PO QAM PRN (Reason: weight gain) Qty: 30 5RF nitroglycerin [Nitrostat] 0.4 mg tablet, sublingual 0.4 mg SUBLINGUAL Q5M PRN (Reason: chest pain) Qty: 25 2RF diltiazem HCl [Tiazac] 240 mg capsule,extended release 24 hr 240 mg PO QPM Held albuterol sulfate 90 mcg/actuation HFA aerosol inhaler 2 puff inhalation QID Qty: 8.5 2RF Hold Instructions: Resume on 07/04/25. Resume once no longer using nebulizer Trelegy Ellipta 100-62.5-25 mcg blister with device 1 inh inhalation Q24H Qty: 60 5RF Hold Instructions: Resume on 07/03/25. Resume once no longer using nebulizer Discontinued levofloxacin 750 mg tablet 750 mg PO DAILY 7 Days Qty: 7 0RF Discharge Order = DC NOW: Discharge Order (Routine); Ordered 06/24/25 Ordered By: Zaira Kirby Referrals: [facility] [Outside] Kevyn Jean, MINE DEVELOPMENT ENGINEER-C [Primary Care Provider, [facility]] - 1-3 days Discharge Diet: Cardiac Discharge Activity: Resume usual activity Patient Instructions: Albuterol (By mouth), Levofloxacin (By mouth), Viral Pneumonia (DC), Altered Mental Status (ED), Patient Portal & Alberto Instructions Discharge Attestations Time Spent in Discharge Care*: greater than 30 min Quality Metrics Clinical Quality Measures [ No reported AMI, CVA or VTE this stay] Coding Level of Care Code 21160 Diagnoses Left lower lobe pneumonia J18.9 Acute respiratory failure with hypoxia J96.01
[2025-06-24 13:57] VITALS: BP 148/60; PULSE 86; RESP 17; TEMP 36.9; O2SAT 90
--- NOTE | 2025-06-24 13:59 | PC.NURSE ---
Report called to Ludmila GARCIA at [facility].
[2025-06-24 14:00] VITALS: O2SAT 89
[2025-06-24 14:50] VITALS: BP 140/60; PULSE 86; RESP 16; TEMP 36.9; O2SAT 92
--- NOTE | 2025-06-24 14:58 | PC.NURSE ---
Patient's family says that patient had black shoes but we have been unable to find them.
== END 2025-06-24 15:00 | disposition skilled nursing facility (03) | DRG 193 ==
LOC: ER 12:22 → MEDSURG 12:29
PROVIDERS: Nurse Practitioner Gerontology; Admitting Provider Internal Medicine; Emergency Provider Emergency Medicine; PCP Nurse Practitioner; Visit Provider Registered Nurse
DX: J18.9 Pneumonia, unspecified organism (principal); J96.01 Acute respiratory failure with hypoxia; J44.1 Chronic obstructive pulmonary disease with (acute) exacerbation; G93.40 Encephalopathy, unspecified; J44.0 Chronic obstructive pulmonary disease with (acute) lower respiratory infection; R00.0 Tachycardia, unspecified; F17.210 Nicotine dependence, cigarettes, uncomplicated; I12.9 Hypertensive chronic kidney disease with stage 1 through stage 4 chronic kidney disease, or unspecified chronic kidney disease; E87.6 Hypokalemia; N18.31 Chronic kidney disease, stage 3a; E78.5 Hyperlipidemia, unspecified; R74.01 Elevation of levels of liver transaminase levels; I25.10 Atherosclerotic heart disease of native coronary artery without angina pectoris; Z95.5 Presence of coronary angioplasty implant and graft; Z79.02 Long term (current) use of antithrombotics/antiplatelets; Z79.899 Other long term (current) drug therapy; Z88.3 Allergy status to other anti-infective agents; Z90.5 Acquired absence of kidney; Z75.1 Person awaiting admission to adequate facility elsewhere; Z11.52 Encounter for screening for COVID-19
CPT/HCPCS: 36415; 36600; 70450; 71045; 72125; 73502; 80053; 81001; 82803; 83735; 83880; 84443; 84484; 85025; 87040; 87070; 87086; 87205; 87449; 87486; 87581; 87633; 87637; 93005; 94640; 94664; 96365; 96372; 96375; 97116; 97161; 97166; 97530; 97535; 99285; 99291; J1650; J1938; J1956; J2919; J7030; J7626; J9999